=== PATIENT | female | born 1975 | race Caucasian/White ===

== ENCOUNTER 2017-01-22 12:23 | Inpatient (IN) | payer BC ==
[~2017-01-22] VITALS: Ht 160 cm; Wt 93.4 kg
[2017-01-22] MEDS ORDERED: Mylanta II UD 30ml ORAL ONE (13:30)
[2017-01-22] MEDS ORDERED: Famotidine 20 MG/ 2ML VIAL IVP ONE (13:30)
[2017-01-22] MEDS ORDERED: Dicyclomine HCl 10mg/5ml oral soln ORAL ONE (13:30)
[2017-01-22] MEDS ORDERED: Lidocaine 2% Visc 15ml soln ORAL ONE (13:30)
[2017-01-22 14:08] LABS: BASOPHILS % (AUTO) 0.5 % (0.0-2.0); EOSINOPHILS % (AUTO) 1.1 % (0.0-3.0); LYMPHOCYTES % (AUTO) 12.7 % (20.0-45.0); MEAN CORPUSCULAR HEMOGLOBIN 27.1 PG (27.0-31.0); MEAN CORPUSCULAR HGB CONC 32.4 G/DL (32.0-36.0); MEAN CORPUSCULAR VOLUME 84 FL (80-99); MEAN PLATELET VOLUME 6.1 FL (6.5-10.1); MONOCYTES % (AUTO) 4.5 % (1.0-10.0); NEUTROPHILS % (AUTO) 81.2 % (45.0-75.0); PLATELET COUNT 367 K/UL (150-450); RED BLOOD COUNT 4.54 M/UL (4.20-5.40); RED CELL DISTRIBUTION WIDTH 13.3 % (11.6-14.8); WHITE BLOOD COUNT 10.1 K/UL (4.8-10.8)
[2017-01-22] MEDS ORDERED: MOTRIN IB200 MG ORAL (14:22)
[2017-01-22 14:27] LABS: ALANINE AMINOTRANSFERASE 9 U/L (3-33); ALBUMIN/GLOBULIN RATIO 0.8 (1.0-2.7); ANION GAP 16 (5-15); ASPARTATE AMINO TRANSFERASE 11 U/L (5-40); CALCIUM 9.3 mg/dL (8.6-10.2); CARBON DIOXIDE 23 mEQ/L (20-30); CHLORIDE 97 mEQ/L (98-107); CREATININE 0.7 mg/dL (0.5-0.9); GLOMERULAR FILTRATION RATE > 60 mL/min (>60); HEMOLYSIS 15; POTASSIUM 4.1 mEQ/L (3.4-4.9); SODIUM 136 mEQ/L (135-145); TOTAL PROTEIN 8.1 g/dL (6.6-8.7)
[2017-01-22 14:54] LABS: PROTHROMBIN TIME 10.4 SEC (9.30-11.50)
[2017-01-22 15:33] VITALS: BP 147/89
--- NOTE | 2017-01-22 16:52 | Diagnostic Imaging Report ---
Indication: SOB Technique: One view of the chest Comparison: none Findings: Lungs and pleural spaces are clear. Heart size is normal. Impression: No acute process
[2017-01-22 17:00] VITALS: BP 138/82
[2017-01-22] MEDS ORDERED: Milk of Magnesia 30ml Ud ORAL PRN (17:15)
[2017-01-22] MEDS ORDERED: LORazepam Inj 2mg/ml 1ml IV PRN (17:15)
[2017-01-22] MEDS ORDERED: Mylanta II UD 30ml ORAL PRN (17:15)
[2017-01-22] MEDS ORDERED: Morphine Sulfate 4mg/ml Inj IVP PRN (17:15)
[2017-01-22] MEDS ORDERED: Miralax 17gm pkt ORAL PRN (17:15)
[2017-01-22] MEDS ORDERED: Morphine Sulfate 2mg/ml Inj IVP PRN (17:15)
--- NOTE | 2017-01-22 17:31 | History and Physical ---
History of Present Illness General Date patient seen: Jan 22, 2017 Time patient seen: 17:24 Reason for Hospitalization: General Complaint Present Illness HPI 42 y/o female with hx of hydradenitis, s/p axilla surgery in 2004, c/ b LLE DVT and bilateral PEs postop, treated with coumadin for 6 months, then was stopped, no recurrence of dvt/pe since that time. She has been in severe pain with her groin lesions, impeding some of her ADLs. Has tried multiple abx, without much success. No chest pain or dyspnea, she can exercise by walking greater than 4 blocks without any chest pain or dyspnea, no pnd/orthopnea. She has well controlled asthma, takes albuterol in haler only 1-2 x a year. She recently finished a steroid taper to calm down the inflammation in her groin region, last dose of prednisone yesterday. Allergies: Coded Allergies: No Known Allergies (Unverified , 01/22/17) Medication History Scheduled Ibuprofen* (Motrin Ib*), 600 MG ORAL THREE TIMES A DAY, (Reported) Patient History History Provided By: Patient Healthcare decision maker N/A Resuscitation status Advanced Directive on File Past Medical/Surgical History Past Medical/Surgical History: (1) Asthma Family History Family History: Patient reports no known family medical history. Social History Social History: (1) No significant social history Review of Systems ROS Narrative CONSTITUTIONAL: No weight loss, fever, chills, weakness or fatigue. HEENT: Eyes: No visual loss, blurred vision, double vision or yellow sclerae. Ears, Nose, Throat: No hearing loss, sneezing, congestion, runny nose or sore throat. SKIN: No rash or itching. CARDIOVASCULAR: No chest pain, chest pressure or chest discomfort. No palpitations or edema. RESPIRATORY: No shortness of breath, cough or sputum. GASTROINTESTINAL: No anorexia, nausea, vomiting or diarrhea. No abdominal pain or blood. NEUROLOGICAL: No headache, dizziness, syncope, paralysis, ataxia, numbness or tingling in the extremities. No change in bowel or bladder control. MUSCULOSKELETAL: No muscle, back pain, joint pain or stiffness. HEMATOLOGIC: No anemia, bleeding or bruising. LYMPHATICS: No enlarged nodes. No history of splenectomy. PSYCHIATRIC: No history of depression or anxiety. ENDOCRINOLOGIC: No reports of sweating, cold or heat intolerance. No polyuria or polydipsia. ALLERGIES: No history of asthma, hives, eczema or rhinitis. Physical Exam Physical Exam Narrative General: alert, cooperative, no distress, appears stated age Head: normocephalic, without obvious abnormality, atraumatic Eyes: conjunctivae/corneas clear. PERRL, EOM's intact Throat: lips, mucosa, and tongue normal. MMM Neck: supple, symmetrical, trachea midline, and no JVD Lungs: clear to auscultation bilaterally Heart: regular rate and rhythm, S1, S2 normal, no murmur, click, rub or gallop Abdomen: soft, non-tender, non-distended, bowel sounds normal; no masses or organomegaly Extremities: has multiple bilateral areas of sin lesions in the medial thigh areas, also has pustular and follicular lesions on BLE, no torso or UE involvement Pulses: 2+ and symmetric Skin: skin color, texture, turgor normal; no rashes or lesions Neurologic: grossly normal, no focal deficits Last 24 Hour Vital Signs Date Time Temp Pulse Resp B/P Pulse Ox O2 Delivery O2 Flow Rate FiO2 01/22/17 16:36 97.9 98 18 147/89 99 Room Air 01/22/17 15:33 97.9 98 18 147/89 99 Room Air 01/22/17 12:41 98.1 102 20 153/94 100 Room Air Laboratory Tests Test 01/22/17 13:45 01/22/17 14:35 White Blood Count 10.1 K/UL (4.8-10.8) Red Blood Count 4.54 M/UL (4.20-5.40) Hemoglobin 12.3 G/DL (12.0-16.0) Hematocrit 38.0 % (37.0-47.0) Mean Corpuscular Volume 84 FL (80-99) Mean Corpuscular Hemoglobin 27.1 PG (27.0-31.0) Mean Corpuscular Hemoglobin Concent 32.4 G/DL (32.0-36.0) Red Cell Distribution Width 13.3 % (11.6-14.8) Platelet Count 367 K/UL (150-450) Mean Platelet Volume 6.1 FL (6.5-10.1) L Neutrophils (%) (Auto) 81.2 % (45.0-75.0) H Lymphocytes (%) (Auto) 12.7 % (20.0-45.0) L Monocytes (%) (Auto) 4.5 % (1.0-10.0) Eosinophils (%) (Auto) 1.1 % (0.0-3.0) Basophils (%) (Auto) 0.5 % (0.0-2.0) Sodium Level 136 mEQ/L (135-145) Potassium Level 4.1 mEQ/L (3.4-4.9) Chloride Level 97 mEQ/L (98-107) L Carbon Dioxide Level 23 mEQ/L (20-30) Anion Gap 16 (5-15) H Blood Urea Nitrogen 11 mg/dL (7-23) Creatinine 0.7 mg/dL (0.5-0.9) Estimat Glomerular Filtration Rate > 60 mL/min (>60) Glucose Level 350 mg/dL (74-106) H Calcium Level 9.3 mg/dL (8.6-10.2) Total Bilirubin 0.6 mg/dL (0.0-1.2) Aspartate Amino Transf (AST/SGOT) 11 U/L (5-40) Alanine Aminotransferase (ALT/SGPT) 9 U/L (3-33) Alkaline Phosphatase 86 U/L (35-104) Total Protein 8.1 g/dL (6.6-8.7) Albumin 3.6 g/dL (3.5-5.2) Globulin 4.5 g/dL Albumin/Globulin Ratio 0.8 (1.0-2.7) L Prothrombin Time 10.4 SEC (9.30-11.50) Prothromb Time International Ratio 1.0 (0.9-1.1) Activated Partial Thromboplast Time 25 SEC (23-33) Height (Feet): 5 Height (Inches): 4.00 Weight (Pounds): 207 Medications Current Medications Medications (Trade) Dose Ordered Sig/Grayson Route PRN Reason Start Time Stop Time Status Last Admin Dose Admin Acetaminophen (Tylenol) 650 mg Q4H PRN ORAL Mild Pain (Pain Scale 1-3) 01/22/17 17:15 02/21/17 17:14 UNV Acetaminophen (Tylenol) 650 mg Q4H PRN ORAL fever 01/22/17 17:15 02/21/17 17:14 UNV Al Hydroxide/Mg Hydroxide (Mylanta II) 30 ml Q6H PRN ORAL dyspepsia 01/22/17 17:15 02/21/17 17:14 UNV Bisacodyl (Dulcolax) 10 mg HSPRN PRN RECTAL Constipation 01/22/17 17:15 02/21/17 17:14 UNV Cefazolin Sodium/ Dextrose (Ancef/D5W) 55 ml @ 110 mls/hr Q8HR IVPB 01/22/17 22:00 01/29/17 21:59 UNV Dextrose STAT PRN IV Hypoglycemia 01/22/17 17:15 02/21/17 17:14 UNV Dextrose/Sodium Chloride (D5ns) 1,000 ml @ 75 mls/hr [id number] IV 01/23/17 00:00 02/22/17 00:00 UNV Diphenhydramine HCl (Benadryl) 25 mg Q6H PRN ORAL Itching/Pruritis 01/22/17 17:15 02/21/17 17:14 UNV Docusate Sodium (Colace) 100 mg EVERY 12 HOURS ORAL 01/22/17 21:00 02/21/17 20:59 UNV Lorazepam (Ativan 2mg/ml 1ml) 0.5 mg Q4H PRN IV For Anxiety 01/22/17 17:15 01/29/17 17:14 UNV Magnesium Hydroxide (Mom) 30 ml HSPRN PRN ORAL Constipation 01/22/17 17:15 02/21/17 17:14 UNV Morphine Sulfate (Morphine Sulfate) 2 mg Q4HR PRN IVP Moderate Pain (Pain Scale 4-6) 01/22/17 17:15 01/29/17 17:14 UNV Morphine Sulfate (Morphine Sulfate) 4 mg Q4HR PRN IVP Severe Pain (Pain Scale 7-10) 01/22/17 17:15 01/29/17 17:14 UNV Ondansetron HCl (Zofran) 4 mg Q6H PRN IVP Nausea & Vomiting 01/22/17 17:15 02/21/17 17:14 UNV Polyethylene Glycol (Miralax) 17 gm HSPRN PRN ORAL Constipation 01/22/17 17:15 02/21/17 17:14 UNV Sodium Chloride 1,000 ml @ 999 mls/hr Q1H1M ONCE IV 01/22/17 17:00 01/22/17 18:00 Temazepam (Restoril) 15 mg HSPRN PRN ORAL Insomnia 01/22/17 17:15 01/29/17 17:14 UNV Assessment/Plan Problem List: (1) Groin abscess Assessment & Plan: Admit to inpatient Check blood cx Start IV abx Pain control Supp care SCDs Plastic Surgery consult A total of 31mins of time was spent on additional time with care coordination and counseling in addition to the face to face time for this visit ICD Codes: L02.214 - Cutaneous abscess of groin SNOMED: 38002687 (2) Asthma Assessment & Plan: well controlled Start alb nebs prn ICD Codes: J45.909 - Unspecified asthma, uncomplicated SNOMED: 461699418 (3) Hyperglycemia Assessment & Plan: Steroid induced, now finished taper Insulin sliding scale ICD Codes: R73.9 - Hyperglycemia, unspecified SNOMED: 26428395 CHER NARAYAN Jan 22, 2017 17:31
[2017-01-22] MEDS ORDERED: Albuterol ud Inhalation HHN PRN (17:45)
[2017-01-22 20:00] VITALS: BP 139/80
[2017-01-22] MEDS: Docusate 100mg tablet ORAL SCH (20:52)
[2017-01-22] MEDS: ceFAZolin sod 1 GM in NS 55 ML IVPB SCH (20:52)
[2017-01-22] MEDS: NovoLOG Insulin Flexpen SUBQ SCH (21:05)
--- NOTE | 2017-01-22 22:39 | Emergency Room Report ---
History of Present Illness General Chief Complaint: General Complaint Source: Patient Present Illness HPI 42 y/o female c/o admission for hidradenitis surgery. Has already seen Gen Sx who is performing procedure and has no active physical complaints. States she has been on humira and prednisone for the past several months but has not been diagnosed with diabetes. Currently has no physical complaints outside of hidradenitis of the groin. Allergies: Coded Allergies: No Known Allergies (Unverified , 01/22/17) Patient History Past Medical History: see triage record Immunizations: UTD Reviewed Nursing Documentation: PMH: Agreed, PSxH: Agreed Nursing Documentation-PMH Past Medical History: No History, Except For Hx Asthma: No - DVT Hx COPD: No - hidradenitis suppurativa Hx Cancer: No Hx Gastrointestinal Problems: No Hx Neurological Problems: No Review of Systems All Other Systems: negative except mentioned in HPI Physical Exam Vital Signs Date Time Temp Pulse Resp B/P Pulse Ox O2 Delivery O2 Flow Rate FiO2 01/22/17 12:41 98.1 102 20 153/94 100 Room Air Sp02 EP Interpretation: reviewed, normal Head: normocephalic, atraumatic Gastrointestinal: normal bowel sounds, non tender, soft, non-distended, no guarding, no rebound Musculoskeletal: back normal, gait/station normal, normal range of motion, non- tender, calf tenderness Skin: other - hidradenitis present along anterior and posterior aspect of groin and upper thighs Medical Decision Making PA Attestation Dr. Yun is my supervising physician with whom patient management has been discussed with. Diagnostic Impression: Primary Impression: Encounter for generalized patient complaints ER Course Pt. presents to the ED c/o admission for hidradenitis Ddx considered but are not limited to hidradenitis Vital signs: are WNL, pt. is afebrile H&PE are most consistent with hidradenitis ORDERS: Admission, IV, Labs, EKG Patient admitted EKG Diagnostic Results Rate: normal Rhythm: NSR ST Segments: no acute changes Rhythm Strip Diag. Results EP Interpretation: yes Last Vital Signs Date Time Temp Pulse Resp B/P Pulse Ox O2 Delivery O2 Flow Rate FiO2 01/22/17 17:00 98.4 98 18 138/82 97 Room Air Status: unchanged Disposition: ADMITTED INPATIENT Condition: Serious Referrals: DYLON HILARIO (PCP) OSCAR COSTELLO Jan 22, 2017 22:39
[2017-01-23] VITALS (11 sets, daily range): BP systolic 102–148; BP diastolic 57–88
[2017-01-23] MEDS ORDERED: D5NS 1,000 ML IV SCH
[2017-01-23] MEDS: ceFAZolin sod 1 GM in NS 55 ML IVPB SCH ×3 (04:08→19:33)
[2017-01-23] MEDS: NovoLOG Insulin Flexpen SUBQ SCH ×4 (06:14→21:51)
[2017-01-23 06:53] LABS: ANION GAP 13 (5-15); CALCIUM 8.5 mg/dL (8.6-10.2); CARBON DIOXIDE 24 mEQ/L (20-30); CHLORIDE 100 mEQ/L (98-107); CREATININE 0.7 mg/dL (0.5-0.9); GLOMERULAR FILTRATION RATE > 60 mL/min (>60); HEMOLYSIS 0; SODIUM 137 mEQ/L (135-145)
[2017-01-23] MEDS: Docusate 100mg tablet ORAL SCH ×2 (08:15→21:46)
--- NOTE | 2017-01-23 10:23 | Diagnostic Imaging Report ---
APPROVED REPORT CPT Code: 63210 Present Symptoms Lower Extremity Edema: Left Comments: History of DVT left leg and subsequent PE post-surgery 2004. Past History DVT :Left Pulmonary Embolism BILATERAL: Imaging reveals a patent deep venous system bilaterally. There is no evidence of thrombus within the femoral, popliteal or tibial segments. The greater saphenous veins are also within normal limits. Doppler indicates normal spontaneous flow within these segments.
[2017-01-23] MEDS ORDERED: Propofol 10mg/ml 20ml IV ONE ×2 (12:20→13:40)
[2017-01-23] MEDS ORDERED: EPINEPHrine 1mg/1ml Amp ONE (13:15)
[2017-01-23] MEDS ORDERED: Lidocaine 1% 10mg/ml/Epi 0.005mg/ml 30ml vial INJ ONE (13:16)
[2017-01-23] MEDS ORDERED: Bacitracin 50000 Units Vial ONE (13:16)
[2017-01-23] MEDS ORDERED: Succinylcholine 20mg/ml 10ml vial ONE (13:40)
[2017-01-23] MEDS ORDERED: Neostigmine 1mg/ml 10ml Inj ONE ×2 (13:40)
[2017-01-23] MEDS ORDERED: Ketorolac 30mg Inj ONE (13:40)
[2017-01-23] MEDS ORDERED: fentaNYL 100 mcg/2 mL IV ONE (13:40)
[2017-01-23] MEDS ORDERED: Zemuron 50mg/5ml Inj IV ONE (13:40)
[2017-01-23] MEDS ORDERED: NS Irrig 1000ml ONE (13:40)
[2017-01-23] MEDS ORDERED: Sterile Water Irrig 1000ml IRRIG ONE (13:40)
[2017-01-23] MEDS ORDERED: Midazolam 2mg/2ml Inj ONE (13:40)
[2017-01-23] MEDS ORDERED: LR 1000ml ONE (13:40)
[2017-01-23] MEDS ORDERED: Morphine Sulfate 10mg/ml Inj ONE (13:40)
[2017-01-23] MEDS ORDERED: Tubing IV Secondary IV ONE (13:43)
[2017-01-23] MEDS ORDERED: Metoclopramide 10mg/2ml Inj IVP PRN ×2 (14:45→16:15)
[2017-01-23] MEDS ORDERED: DiphenhydrAMINE 50mg/ml Inj IVP PRN (14:45)
[2017-01-23] MEDS ORDERED: Ketorolac 30mg Inj IV PRN (14:45)
[2017-01-23] MEDS ORDERED: Meperidine 25mg/ml Inj IV PRN (14:45)
[2017-01-23] MEDS ORDERED: LR 1000ml 1,000 ML IVLG SCH (14:45)
[2017-01-23] MEDS ORDERED: Hydromorphone 0.5mg/0.5ml inj IVP PRN (14:45)
[2017-01-23] MEDS ORDERED: fentaNYL 100 mcg/2 mL IV PRN (14:45)
[2017-01-23] MEDS ORDERED: Midazolam 2mg/2ml Inj IVP PRN (14:45)
--- NOTE | 2017-01-23 14:45 | Anethesia Preoperative Eval ---
Anesthesia Pre-op PMH/ROS General Date of Evaluation: Jan 23, 2017 Time of Evaluation: 13:40 Anesthesiologist: Ti ASA Score: ASA 3 Mallampati Score Class I : Soft palate, uvula, fauces, pillars visible Class II: Soft palate, uvula, fauces visible Class III: Soft palate, base of uvula visible Class IV: Only hard plate visible Mallampati Classification: Class II Surgeon: Sameer Diagnosis: Recurrent HS Surgical Procedure: Excision of bilateral groin hydradenitis Anesthesia History: none Family History: no anesthesia problems Allergies: Coded Allergies: No Known Allergies (Unverified , 01/22/17) Medications: see eMAR Past Medical History Cardiovascular: Denies: CAD, HTN, AR, arrhythmia, other, valve dz Pulmonary: Reports: asthma - mild, Denies: COPD, LORI, other Gastrointestinal/Genitourinary: Reports: GERD, Denies: CRI, ESRD, other Neurologic/Psychiatric: Reports: depression/anxiety, Denies: CVA, TIA, dementia, other Endocrine: Reports: DM - on pills developed after course of prednison, Denies: hypothyroidism, other, steroids HEENT: Denies: CABAZON (L), CABAZON (R), cataract (L), cataract (R), glaucoma, other Hematology/Immune: Reports: DVT - h/o DVT PE not on anticoagulants at present time, anemia Musculoskeletal/Integumentary: Reports: other - recurrent HS Other: obesity PMH Narrative: as above PSxH Narrative: bilateral axillary hydradenitis Anesthesia Pre-op Phys. Exam Physician Exam Last Vital Signs Date Time Temp Pulse Resp B/P Pulse Ox O2 Delivery O2 Flow Rate FiO2 01/23/17 08:14 98.1 90 16 135/85 96 Room Air Constitutional: NAD Neurologic: CN 2-12 intact Cardiovascular: RRR, no M/R/G Respiratory: CTA Gastrointestinal: other - obesity Airway Exam Mallampati Score: Class II MO: full Neck: flexible ROM: full Teeth: intact Dentures: no lower, no upper Anesthesia Pre-op A/P Labs Chemistry Test 01/23/17 06:15 Sodium Level 137 mEQ/L (135-145) Potassium Level 4.0 mEQ/L (3.4-4.9) Chloride Level 100 mEQ/L (98-107) Carbon Dioxide Level 24 mEQ/L (20-30) Anion Gap 13 (5-15) Blood Urea Nitrogen 8 mg/dL (7-23) Creatinine 0.7 mg/dL (0.5-0.9) Estimat Glomerular Filtration Rate > 60 mL/min (>60) Glucose Level 289 mg/dL (74-106) H Calcium Level 8.5 mg/dL (8.6-10.2) L Human Chorionic Gonadotropin, Qual Negative Serum Test Test 01/23/17 06:15 Human Chorionic Gonadotropin, Qual Negative Risk Assessment & Plan Assessment: ASA 2 Plan: GA with ETT Status Change Before Surgery: No Pre-Antibiotics Drug: Ancef 2gr. Given Within 1 Hr of Incision: Yes Time Given: 14:16 BRANDI COVARRUBIAS M.D. Jan 23, 2017 14:45
[2017-01-23] MEDS ORDERED: Rate Change PCA 1 Each MISC PRN ×2 (15:00→16:15)
[2017-01-23] MEDS ORDERED: Naloxone 0.4mg/ml Inj IVP PRN (15:00)
[2017-01-23] MEDS ORDERED: LORazepam 1mg tab ORAL PRN (15:00)
[2017-01-23] MEDS ORDERED: Surgicel 4in x 8in TOPIC ONE (15:47)
--- NOTE | 2017-01-23 16:09 | Pre-Procedure Note/Attestation ---
Pre-Procedure Note/Attestation Complete Prior to Procedure Planned Procedure: bilateral Procedure Narrative: Bilateral upper thigh mass excision and flap elevation Attestation I attest that I discussed the nature of the procedure; its benefits; risks and complications; and alternatives (and the risks and benefits of such alternatives ), prior to the procedure, with the patient (or the patient's legal outside dealer sales representative). I attest that, if there was a reasonable possibility of needing a blood transfusion, the patient (or the patient's legal outside dealer sales representative) was given the [facility] standardized written summary, pursuant to the [place] Blood Safety Act ([place] Health and Safety Code # 1645, as amended). I attest that I re-evaluated the patient just prior to the surgery and that there has been no change in the patient's H&P, except as documented below: DYLON HILARIO Jan 23, 2017 16:09
--- NOTE | 2017-01-23 16:11 | Operative Note - PDOC ---
Operative Note Operative Note Pre-op Diagnosis: Infected groin masses Procedure: Excision of bilateral groin masses with flap elevation Post-op Diagnosis: Same Surgeon: Sameer Mathematical Statistician: Patricia Anesthesia: general Specimen: yes Complications: none Condition: stable Estimated Blood Loss: volume - 100 Drains: none Implant(s) used?: No DYLON HILARIO Jan 23, 2017 16:11
[2017-01-23] MEDS ORDERED: PCA HYDROmorphone 1mg/ml 30 ML IV PRN (16:15)
[2017-01-23] MEDS ORDERED: Zolpidem 5mg tab ORAL PRN (16:15)
--- NOTE | 2017-01-23 16:31 | Immediate Post-Op Evaluation ---
Immediate Post-Op Evalulation Immediate Post-Op Evalulation Procedure: Excision of bilateral groin hydradenitis Date of Evaluation: Jan 23, 2017 Time of Evaluation: 16:29 IV Fluids: 1500 Blood Products: none Estimated Blood Loss: 200 Urinary Output: 250 Blood Pressure Systolic: 102 Blood Pressure Diastolic: 64 Pulse Rate: 72 Respiratory Rate: 20 O2 Sat by Pulse Oximetry: 99 Temperature (Fahrenheit): 97.8 Pain Score (1-10): 2 Nausea: No Vomiting: No Complications none Patient Status: reacts, patent, extubated, none Hydration Status: adequate BRANDI COVARRUBIAS M.D. Jan 23, 2017 16:30
[2017-01-23] MEDS: PCA HYDROmorphone 1mg/ml 30 ML IV PRN (16:58)
--- NOTE | 2017-01-23 18:34 | General Progress Note ---
Assessment/Plan Problem List: (1) Groin abscess Assessment & Plan: s/p I+D POD#1 f/u blood cx Cont IV abx Pain control Supp care SCDs Apprec Plastic Surgery input A total of 31mins of time was spent on additional time with care coordination and counseling in addition to the face to face time for this visit ICD Codes: L02.214 - Cutaneous abscess of groin SNOMED: 13154320 (2) Asthma Assessment & Plan: well controlled Cont alb nebs prn ICD Codes: J45.909 - Unspecified asthma, uncomplicated SNOMED: 474080615 (3) Hyperglycemia Assessment & Plan: Steroid induced, now finished taper Insulin sliding scale ICD Codes: R73.9 - Hyperglycemia, unspecified SNOMED: 92025272 Subjective Date patient seen: Jan 23, 2017 Time patient seen: 18:31 ROS Limited/Unobtainable: No Allergies: Coded Allergies: No Known Allergies (Unverified , 01/22/17) Subjective s/p I+D of groin region, POD#1, no periop or postop complications. No chest pain or dyspnea, postop pain well controlled. Objective Last 24 Hour Vital Signs Date Time Temp Pulse Resp B/P Pulse Ox O2 Delivery O2 Flow Rate FiO2 01/23/17 18:07 98.5 01/23/17 17:31 18 01/23/17 17:21 98.5 64 20 122/62 97 Nasal Cannula 3.0 01/23/17 17:16 18 01/23/17 17:10 64 20 129/68 97 Nasal Cannula 3.0 01/23/17 16:58 18 01/23/17 16:45 67 20 121/72 97 Simple Mask 8.0 01/23/17 16:32 63 20 134/69 97 Simple Mask 8.0 01/23/17 16:30 72 20 99 01/23/17 16:27 64 20 111/57 97 Simple Mask 8.0 01/23/17 16:22 98.1 87 20 102/61 97 Simple Mask 8.0 01/23/17 08:14 98.1 90 16 135/85 96 Room Air 01/23/17 04:23 98.2 92 20 146/88 100 Room Air 01/23/17 00:00 98.2 89 18 148/79 100 Room Air 4/4/17 20:00 97.7 97 18 139/80 100 Room Air Intake and Output 01/22/17 01/23/17 19:00 07:00 Intake Total 50 ml 1155 ml Balance 50 ml 1155 ml Intake Oral 550 ml IV Total 50 ml 605 ml # Voids 3 Laboratory Tests 01/23/17 06:15: Sodium Level 137, Potassium Level 4.0, Chloride Level 100, Carbon Dioxide Level 24, Anion Gap 13, Blood Urea Nitrogen 8, Creatinine 0.7, Estimat Glomerular Filtration Rate > 60, Glucose Level 289H, Calcium Level 8.5L, Human Chorionic Gonadotropin, Qual Negative Height (Feet): 5 Height (Inches): 3.00 Weight (Pounds): 206 Objective General: alert, cooperative, no distress, appears stated age Head: normocephalic, without obvious abnormality, atraumatic Eyes: conjunctivae/corneas clear. PERRL, EOM's intact Throat: lips, mucosa, and tongue normal. MMM Neck: supple, symmetrical, trachea midline, and no JVD Lungs: clear to auscultation bilaterally Heart: regular rate and rhythm, S1, S2 normal, no murmur, click, rub or gallop Abdomen: soft, non-tender, non-distended, bowel sounds normal; no masses or organomegaly Extremities: groin region dressing c/d/i Pulses: 2+ and symmetric Skin: skin color, texture, turgor normal; no rashes or lesions Neurologic: grossly normal, no focal deficits CHER NARAYAN Jan 23, 2017 18:33
[2017-01-23] MEDS: Heparin 5000 units/ml inj SUBQ SCH (19:32)
--- NOTE | 2017-01-23 22:28 | Consultation ---
DATE OF CONSULTATION: 01/23/2017 ADMITTING PHYSICIAN: Ivonne Montes De Oca M.D. HISTORY OF PRESENT ILLNESS: This is a 42-year-old female, who presents to the emergency room with bilateral infected groin masses/abscesses with significant amount of pain and drainage. She was admitted by the medical team for IV antibiotics. I am seeing the patient in evaluation for excisional debridement of this area with reconstruction. PAST MEDICAL HISTORY: Significant for hidradenitis in the upper extremities. PAST SURGICAL HISTORY: Significant for a previous axillary hidradenitis excision with reconstruction. MEDICATIONS: The patient was just on a prednisone taper, which she is off now and has been on antibiotics in the past. ALLERGIES: None. PHYSICAL EXAMINATION: GENERAL: The patient is alert and oriented x3. HEART: Regular rate and rhythm. ABDOMEN: Soft, nontender, and nondistended. There is evidence of abscesses in the lower abdomen. GENITALIA: Examination the perineum and lower extremities revealed on bilateral large infected groin masses with purulent drainage from both sides with extension into the perianal region. There is also a right buttock abscess with a phlegmonous mass associated with it. ASSESSMENT AND PLAN: This is a 42-year-old female with bilateral infected groin masses. She will be taken to the operating room for excision of this area with flap elevation given the infectious burden that is present, this will require a staged approach to her treatment, as we will not be able to perform definitive closure at the same time of the excision. She understands the plan and agrees to proceed. Kandice Estrella M.D. DR: AKHIL JOB#: [id number] CC:
[2017-01-23] MEDS ORDERED: CPAP (22:48)
--- NOTE | 2017-01-23 22:58 | Operative Note - Dictated ---
DATE OF OPERATION: 01/23/2017 PREOPERATIVE DIAGNOSIS: Bilateral infected groin masses. POSTOPERATIVE DIAGNOSIS: Bilateral infected groin masses. PROCEDURES: 1. Excision of infected left groin mass. 2. Excision of infected right groin mass. 3. Elevation of an anterior left-sided thigh flap for staged closure of left groin wound. 4. Elevation of a posterior thigh flap for closure of left groin wound. 5. Elevation of a right anterior thigh flap for staged closure of right thigh wound. 6. Elevation of a posterior right thigh flap for staged closure of right thigh wound. SURGEON: Kandice Estrella M.D. FINANCIAL MARKET DEALER: Chani Gomez M.D. ANESTHESIA: General. COMPLICATIONS: None. DRAINS: None. DISPOSITION: Stable to recovery room. SPECIMEN: Bilateral axillary masses. EBL: 100 mL. INDICATIONS FOR SURGERY: This is a 42-year-old female, who was admitted to the emergency room with bilateral infected groin masses. She had presented with significant pain and drainage. Upon evaluation by me, I felt that she needed a staged approach to address this area with an initial excisional debridement and radical excision of the mass, followed by a flap elevation at that time, with a staged closure within three to five days after this initial procedure. She understood the risks and benefits of surgery and agreed to proceed. DETAILS OF THE OPERATION: The patient was brought to the operating room and laid supine on the operating room table. After induction of anesthesia, she was placed in lithotomy position. The areas of infection within bilateral groin and upper thigh regions were demarcated with a marking pen. Once this was done, we proceeded, first on the right, to use a #10 blade to make the skin incision around the right infected groin mass all the way down to the level of the epimysium over the thigh muscles. Electrocautery was then used to radically excise the mass en bloc from the wound bed and from the surrounding skin. Once this was done, the wound was copiously irrigated with pulse lavage. In a similar fashion, the contralateral left infected mass was approached by using a #10 blade to cut all along the periphery of the mass over the marking that was made and electrocautery was then used to radically excise the mass from the wound bed. Following this radical excision, we noted that the wounds were of significant size and were not amenable to closure as such. The decision was made to perform a flap closure by removing an intervening V segment of tissue in the medial thigh on both sides to allow for flap elevation and closure of the wound. As such, a V was designed on both medial thighs. We first began on the right. This V pattern was excised to allow for first elevation of the anterior right thigh flap, which was elevated based off of perforators of the superficial femoral artery, and the proximal and distal incisions were made to fully mobilize the flap at the fasciocutaneous level. Following this, a posterior thigh flap was elevated based off of perforators of the deep femoral artery with proximal and distal incisions made to fully mobilize the flap. With these flaps fully mobilized, we tailor tacked and we noted that we could accomplish a near complete closure of the wound at this time, with the understanding that when she brought back to the operating room, further mobilization of both flaps will allow for a tension-free repair. We then turned our attention to the contralateral leg. On the left thigh, we performed a V excision of the medial thigh tissue to allow for advancement of an anterior and posterior thigh flap. In a similar fashion, an anterior thigh flap was elevated with perforators of the superficial femoral artery perfusing this flap. The proximal and distal incisions were made on the flap, and the flap was fully mobilized at the fasciocutaneous level. In a similar fashion, a posterior thigh flap was elevated based off of the perforators of the deep femoral artery and this was elevated at the fasciocutaneous level with proximal and distal incisions made to fully mobilize the flap in this thigh. It was noted to allow for tension-free closure of the wound. Again given the fact that this was an infected case, the flaps were not completely reapproximated the wound edges of the groin. The wound was then packed with Betadine-soaked gauze. The plan will be to bring the patient back to the operating room within five days to re-examine the wound and definitively inset the flaps to allow for closure of the wound. The patient tolerated the procedure well. There were no complications. Kandice Estrella M.D. DR: AMA JOB#: [id number] CC: ANNA
[2017-01-23] MEDS ORDERED: PCA shift volume MISC SCH (23:00)
[2017-01-23] MEDS: PCA shift volume MISC SCH (23:00)
--- NOTE | 2017-01-23 23:09 | Cardiology Report ---
APPROVED REPORT EKG Measurement Heart [id number] Normal sinus rhythm Possible Left atrial enlargement Borderline ECG
[2017-01-24] VITALS: BP 111/62
[2017-01-24 04:00] VITALS: BP 122/64
[2017-01-24] MEDS: ceFAZolin sod 1 GM in NS 55 ML IVPB SCH ×3 (04:38→21:37)
[2017-01-24] MEDS: NovoLOG Insulin Flexpen SUBQ SCH ×6 (05:37→21:46)
[2017-01-24] MEDS: PCA shift volume MISC SCH ×3 (07:09→23:00)
[2017-01-24 08:00] VITALS: BP 113/64
[2017-01-24] MEDS: Docusate 100mg tablet ORAL SCH ×2 (08:31→21:37)
[2017-01-24] MEDS: Heparin 5000 units/ml inj SUBQ SCH ×3 (08:35→17:46)
--- NOTE | 2017-01-24 08:53 | General Progress Note ---
Progress Note Progress Note Pt seen and examined. POD #1 and feels well. Dressings CDI To OR tomorrow for RF buttock debridement and flap elevation. NPO after MN. Dylon Hilario M.D. DYLON HILARIO Jan 24, 2017 08:53
--- NOTE | 2017-01-24 09:20 | General Progress Note ---
Assessment/Plan Problem List: (1) Groin abscess Assessment & Plan: s/p I+D POD#2 f/u blood cx Cont IV abx Pain control Supp care SCDs Apprec Plastic Surgery input A total of 31mins of time was spent on additional time with care coordination and counseling in addition to the face to face time for this visit ICD Codes: L02.214 - Cutaneous abscess of groin SNOMED: 87210572 (2) Asthma Assessment & Plan: well controlled Cont alb nebs prn ICD Codes: J45.909 - Unspecified asthma, uncomplicated SNOMED: 548593461 (3) Hyperglycemia Assessment & Plan: Steroid induced, now finished taper Insulin sliding scale ICD Codes: R73.9 - Hyperglycemia, unspecified SNOMED: 80478358 Subjective Date patient seen: Jan 24, 2017 Time patient seen: 09:19 ROS Limited/Unobtainable: No Allergies: Coded Allergies: No Known Allergies (Unverified , 01/22/17) Subjective s/p I+D of groin region, POD#2, no periop or postop complications. No chest pain or dyspnea, postop pain well controlled. Objective Last 24 Hour Vital Signs Date Time Temp Pulse Resp B/P Pulse Ox O2 Delivery O2 Flow Rate FiO2 01/24/17 08:00 19 01/24/17 08:00 98.6 104 20 113/64 95 Room Air 01/24/17 04:00 99.1 20 122/64 100 Room Air 01/24/17 04:00 18 01/24/17 00:00 99.1 99 20 111/62 99 Room Air 01/24/17 00:00 18 01/23/17 20:00 97.5 99 20 111/70 99 Nasal Cannula 3.0 01/23/17 20:00 18 01/23/17 19:52 97 Nasal Cannula 3.0 01/23/17 19:52 Nasal Cannula 3.0 01/23/17 19:51 56 16 Nasal Cannula 3.0 01/23/17 18:07 98.5 01/23/17 17:46 97.7 54 18 118/67 97 Nasal Cannula 3.0 01/23/17 17:31 18 01/23/17 17:21 98.5 64 20 122/62 97 Nasal Cannula 3.0 01/23/17 17:16 18 01/23/17 17:10 64 20 129/68 97 Nasal Cannula 3.0 01/23/17 16:58 18 01/23/17 16:45 67 20 121/72 97 Simple Mask 8.0 01/23/17 16:32 63 20 134/69 97 Simple Mask 8.0 01/23/17 16:30 72 20 99 01/23/17 16:27 64 20 111/57 97 Simple Mask 8.0 01/23/17 16:22 98.1 87 20 102/61 97 Simple Mask 8.0 Intake and Output 01/23/17 01/24/17 18:59 06:59 Intake Total 1750 ml Output Total 450 ml 450 ml Balance 1300 ml -450 ml IV Total 1750 ml Output Urine Total 250 ml 450 ml Estimated Blood Loss 200 ml Height (Feet): 5 Height (Inches): 3.00 Weight (Pounds): 206 Objective General: alert, cooperative, no distress, appears stated age Head: normocephalic, without obvious abnormality, atraumatic Eyes: conjunctivae/corneas clear. PERRL, EOM's intact Throat: lips, mucosa, and tongue normal. MMM Neck: supple, symmetrical, trachea midline, and no JVD Lungs: clear to auscultation bilaterally Heart: regular rate and rhythm, S1, S2 normal, no murmur, click, rub or gallop Abdomen: soft, non-tender, non-distended, bowel sounds normal; no masses or organomegaly Extremities: groin region dressing c/d/i Pulses: 2+ and symmetric Skin: skin color, texture, turgor normal; no rashes or lesions Neurologic: grossly normal, no focal deficits CHER NARAAYN Jan 24, 2017 09:20
--- NOTE | 2017-01-24 09:54 | 48 Hour Post Anesthesia Eval ---
Post Anesthesia Evaluation Procedure: Excision of bilateral groin hydradenitis Date of Evaluation: Jan 24, 2017 Time of Evaluation: 09:53 Blood Pressure Systolic: 116 0: 60 Pulse Rate: 94 Respiratory Rate: 20 Temperature (Fahrenheit): 97.8 O2 Sat by Pulse Oximetry: 98 Airway: patent Nausea: No Vomiting: No Pain Intensity: 3 Hydration Status: adequate Cardiopulmonary Status: stable Mental Status/LOC: patient returned to baseline Follow-up Care/Observations: na Post-Anesthesia Complications: na Follow-up care needed: N/A LB MCNAMARA M.D. Jan 24, 2017 09:54
[2017-01-24 12:00] VITALS: BP 110/63
[2017-01-24 16:00] VITALS: BP 104/54
[2017-01-24 20:00] VITALS: BP 109/58
[2017-01-24] MEDS: PCA HYDROmorphone 1mg/ml 30 ML IV PRN (21:49)
[2017-01-25] VITALS (15 sets, daily range): BP systolic 103–125; BP diastolic 46–70
[2017-01-25] MEDS: ceFAZolin sod 1 GM in NS 55 ML IVPB SCH ×3 (03:55→22:29)
[2017-01-25] MEDS: NovoLOG Insulin Flexpen SUBQ SCH ×7 (06:13→22:31)
[2017-01-25] MEDS: PCA shift volume MISC SCH ×3 (07:10→23:00)
[2017-01-25] MEDS ORDERED: EPINEPHrine 1mg/1ml Amp ONE (08:55)
[2017-01-25] MEDS ORDERED: Surgicel 4in x 8in TOPIC ONE (08:55)
[2017-01-25] MEDS ORDERED: Lidocaine 1% 10mg/ml/Epi 0.005mg/ml 30ml vial INJ ONE (08:55)
[2017-01-25] MEDS ORDERED: Bacitracin 50000 Units Vial ONE (08:55)
[2017-01-25] MEDS: Heparin 5000 units/ml inj SUBQ SCH ×2 (09:00→22:31)
[2017-01-25] MEDS: Docusate 100mg tablet ORAL SCH ×2 (09:00→22:29)
[2017-01-25] MEDS ORDERED: Propofol 10mg/ml 20ml IV ONE (09:12)
--- NOTE | 2017-01-25 09:46 | Pre-Procedure Note/Attestation ---
Pre-Procedure Note/Attestation Complete Prior to Procedure Planned Procedure: right Procedure Narrative: Right posterior thigh debridement and flap elevation Indications for Procedure Pre-Operative Diagnosis: Infected groin masses Attestation I attest that I discussed the nature of the procedure; its benefits; risks and complications; and alternatives (and the risks and benefits of such alternatives ), prior to the procedure, with the patient (or the patient's legal credit resolution representative). I attest that, if there was a reasonable possibility of needing a blood transfusion, the patient (or the patient's legal credit resolution representative) was given the [facility] standardized written summary, pursuant to the [employer] Blood Safety Act ([place] Health and Safety Code # 1645, as amended). I attest that I re-evaluated the patient just prior to the surgery and that there has been no change in the patient's H&P, except as documented below: DYLON HILARIO Jan 25, 2017 09:45
--- NOTE | 2017-01-25 09:48 | Operative Note - PDOC ---
Operative Note Operative Note Pre-op Diagnosis: Right posterior thigh infected mass Procedure: Excision of posterior thigh mass with flap elevation Post-op Diagnosis: Same Surgeon: Sameer Pst Supervisor: Patricia Anesthesia: general Specimen: yes Complications: none Condition: stable Estimated Blood Loss: volume - 100 Drains: none Implant(s) used?: No DYLON HILARIO Jan 25, 2017 09:48
[2017-01-25] MEDS ORDERED: PCA HYDROmorphone 1mg/ml 30 ML IV PRN (10:00)
[2017-01-25] MEDS ORDERED: Succinylcholine 20mg/ml 10ml vial ONE ×2 (10:00)
[2017-01-25] MEDS ORDERED: Metoclopramide 10mg/2ml Inj IVP PRN ×2 (10:00→11:45)
[2017-01-25] MEDS ORDERED: fentaNYL 100 mcg/2 mL IV ONE (10:00)
[2017-01-25] MEDS ORDERED: LR 1000ml ONE (10:00)
[2017-01-25] MEDS ORDERED: Midazolam 2mg/2ml Inj ONE (10:00)
[2017-01-25] MEDS ORDERED: Ketorolac 30mg Inj ONE (10:00)
[2017-01-25] MEDS ORDERED: Glycopyrrolate 0.2mg/ml 1ml Vial ONE (10:00)
[2017-01-25] MEDS ORDERED: Zemuron 50mg/5ml Inj IV ONE (10:00)
[2017-01-25] MEDS ORDERED: Rate Change PCA 1 Each MISC PRN (10:00)
[2017-01-25] MEDS ORDERED: Neostigmine 1mg/ml 10ml Inj ONE (10:00)
[2017-01-25] MEDS ORDERED: Zolpidem 5mg tab ORAL PRN (10:00)
--- NOTE | 2017-01-25 10:15 | General Progress Note ---
Assessment/Plan Problem List: (1) Groin abscess Assessment & Plan: s/p I+D POD#3 f/u blood cx Cont IV abx Pain control Supp care SCDs Apprec Plastic Surgery input A total of 31mins of time was spent on additional time with care coordination and counseling in addition to the face to face time for this visit ICD Codes: L02.214 - Cutaneous abscess of groin SNOMED: 30014827 (2) Asthma Assessment & Plan: well controlled Cont alb nebs prn ICD Codes: J45.909 - Unspecified asthma, uncomplicated SNOMED: 882247106 (3) Hyperglycemia Assessment & Plan: Steroid induced, now finished taper Insulin sliding scale Start levemir qhs, cont novolog with meals ICD Codes: R73.9 - Hyperglycemia, unspecified SNOMED: 82624158 Subjective Date patient seen: Jan 25, 2017 Time patient seen: 10:13 ROS Limited/Unobtainable: No Allergies: Coded Allergies: No Known Allergies (Unverified , 01/22/17) Subjective s/p I+D of groin region, POD#3, no periop or postop complications. Currently in OR for stage 2 surgery. Objective Last 24 Hour Vital Signs Date Time Temp Pulse Resp B/P Pulse Ox O2 Delivery O2 Flow Rate FiO2 01/25/17 08:18 98 20 Room Air 01/25/17 08:18 95 Room Air 01/25/17 08:18 Room Air 01/25/17 08:00 19 01/25/17 08:00 98.2 100 19 111/61 100 Room Air 01/25/17 04:00 16 01/25/17 04:00 99.0 96 18 118/70 98 Room Air 01/25/17 01:45 99.5 01/25/17 00:00 100.9 111 18 125/61 96 Room Air 01/25/17 00:00 18 01/24/17 22:19 100.0 01/24/17 21:50 18 01/24/17 21:49 18 01/24/17 20:00 18 01/24/17 20:00 100.0 107 18 109/58 96 Room Air 01/24/17 19:09 95 Room Air 01/24/17 19:09 Room Air 01/24/17 19:08 98 18 Room Air 4/6/17 16:00 18 01/24/17 16:00 99.1 103 18 104/54 96 Room Air 01/24/17 12:00 18 01/24/17 12:00 99.5 96 20 110/63 96 Room Air Intake and Output 01/24/17 01/25/17 19:00 07:00 Intake Total 500 ml 240 ml Output Total 1300 ml 1600 ml Balance -800 ml -1360 ml Intake Oral 500 ml 240 ml Output Urine Total 1300 ml 1600 ml Height (Feet): 5 Height (Inches): 3.00 Weight (Pounds): 206 Objective unable to examine as pt in OR CHER NARAYAN Jan 25, 2017 10:14
--- NOTE | 2017-01-25 10:58 | Anethesia Preoperative Eval ---
Anesthesia Pre-op PMH/ROS General Date of Evaluation: Jan 25, 2017 Time of Evaluation: 09:40 Anesthesiologist: Ti ASA Score: ASA 2 Mallampati Score Class I : Soft palate, uvula, fauces, pillars visible Class II: Soft palate, uvula, fauces visible Class III: Soft palate, base of uvula visible Class IV: Only hard plate visible Mallampati Classification: Class II Surgeon: Sameer Diagnosis: Recurrent hydradenitis Surgical Procedure: Excision of R gluteal area lesion Anesthesia History: none Family History: no anesthesia problems Allergies: Coded Allergies: No Known Allergies (Unverified , 01/22/17) Medications: see eMAR Past Medical History Cardiovascular: Denies: CAD, HTN, VT, arrhythmia, other, valve dz Pulmonary: Reports: asthma - mild, Denies: COPD, LORI, other Gastrointestinal/Genitourinary: Reports: GERD, Denies: CRI, ESRD, other Neurologic/Psychiatric: Reports: depression/anxiety, Denies: CVA, TIA, dementia, other Endocrine: Reports: DM, Denies: hypothyroidism, other, steroids HEENT: Denies: TYONEK (L), TYONEK (R), cataract (L), cataract (R), glaucoma, other Hematology/Immune: Reports: DVT - h/o, anemia - mild Musculoskeletal/Integumentary: Denies: DDD, DJD, OA, RA, edema, other Other: obesity PMH Narrative: as above PSxH Narrative: see chart Anesthesia Pre-op Phys. Exam Physician Exam Last Vital Signs Date Time Temp Pulse Resp B/P Pulse Ox O2 Delivery O2 Flow Rate FiO2 01/25/17 08:18 98 20 Room Air 01/25/17 08:18 95 01/25/17 08:00 98.2 111/61 01/24/17 06:59 Constitutional: NAD Neurologic: CN 2-12 intact Cardiovascular: RRR, no M/R/G Respiratory: CTA Gastrointestinal: other - obesity Airway Exam Mallampati Score: Class II MO: full ROM: full Teeth: intact Dentures: no lower, no upper Anesthesia Pre-op A/P Risk Assessment & Plan Assessment: ASA 2 Plan: GA with ETT prone position Status Change Before Surgery: No Pre-Antibiotics Drug: Ancef 1 gr. Given Within 1 Hr of Incision: Yes Time Given: 10:05 BRANDI COVARRUBIAS M.D. Jan 25, 2017 10:58
[2017-01-25] MEDS ORDERED: LR 1000ml 1,000 ML IVLG SCH (11:31)
--- NOTE | 2017-01-25 11:34 | Immediate Post-Op Evaluation ---
Immediate Post-Op Evalulation Immediate Post-Op Evalulation Procedure: Excision of bilateral groin hydradenitis Date of Evaluation: Jan 25, 2017 Time of Evaluation: 11:33 IV Fluids: 800 Blood Products: none Estimated Blood Loss: <50 Urinary Output: 200 Blood Pressure Systolic: 110 Blood Pressure Diastolic: 67 Pulse Rate: 104 Respiratory Rate: 20 O2 Sat by Pulse Oximetry: 99 Temperature (Fahrenheit): 97.6 Pain Score (1-10): 2 Nausea: No Vomiting: No Complications none Patient Status: reacts, patent, extubated, none Hydration Status: adequate BRANDI COVARRUBIAS M.D. Jan 25, 2017 11:34
[2017-01-25] MEDS ORDERED: Hydromorphone 0.5mg/0.5ml inj IVP PRN (11:45)
[2017-01-25] MEDS ORDERED: Ketorolac 30mg Inj IV PRN (11:45)
[2017-01-25] MEDS ORDERED: Midazolam 2mg/2ml Inj IVP PRN (11:45)
[2017-01-25] MEDS ORDERED: DiphenhydrAMINE 50mg/ml Inj IVP PRN (11:45)
[2017-01-25] MEDS ORDERED: Meperidine 25mg/ml Inj IV PRN (11:45)
--- NOTE | 2017-01-25 13:51 | 48 Hour Post Anesthesia Eval ---
Post Anesthesia Evaluation Procedure: Excision of bilateral groin hydradenitis Date of Evaluation: Jan 25, 2017 Time of Evaluation: 13:49 Blood Pressure Systolic: 103 0: 46 Pulse Rate: 100 Respiratory Rate: 18 Temperature (Fahrenheit): 98.6 O2 Sat by Pulse Oximetry: 99 Airway: patent Nausea: No Vomiting: No Pain Intensity: 2 Hydration Status: adequate Cardiopulmonary Status: Stable Mental Status/LOC: patient returned to baseline Follow-up Care/Observations: 0 Post-Anesthesia Complications: 0 Follow-up care needed: N/A Celio Neil MD Jan 25, 2017 13:51
--- NOTE | 2017-01-25 20:38 | Operative Note - Dictated ---
DATE OF OPERATION: 01/25/2017 PREOPERATIVE DIAGNOSIS: Infected upper posterior thigh mass. POSTOPERATIVE DIAGNOSIS: Infected upper posterior thigh mass. PROCEDURES: 1. Radical excision of upper posterior thigh mass right side. 2. Elevation of a rotational right-sided gluteal flap for staged closure of right upper posterior thigh wound. 3. Elevation of a posterior thigh flap for staged closure of right upper posterior thigh wound. SURGEON: Kandice Estrella M.D. COMPUTER NETWORK AND SYSTEMS ENGINEER: Chani Gomez M.D. ANESTHESIA: General. COMPLICATIONS: None. DRAINS: None. SPECIMEN: Infected upper posterior right thigh mass. ESTIMATED BLOOD LOSS: 25 mL. DISPOSITION: Stable to the recovery room. INDICATIONS FOR SURGERY: This is a 42-year-old female now, who is been hospitalized now for about five days, who has previously undergone bilateral excision of her infected groin masses, who now presents to the operating room for radical excision of a right upper posterior thigh mass. This area has been draining purulent material and it is quite tender and requires radical excision. Given the presence of the infection, the flap elevation will be done only as the first stage and definitive closure will not be done at this time, this will require a staged closure within three to five days. The patient understands the plan and agrees to proceed. DETAILS OF THE OPERATION: The patient was brought to the operating room and laid in the prone position on the operating table after induction of anesthesia. The lower back and upper thigh on the right were prepped and draped in a sterile and usual fashion. We first began by using a marking pen to the delineate the extent of the mass and once this was done, a corresponding superiorly and medially based rotational gluteal flap was designed with a marking pen and a corresponding areas of undermining for lower posterior thigh flap were also determined. Once this was done, a #10 blade was then used to radically excise the mass by first making the skin incision around the mass around the markings and dissection was carried down all the way to the level of the epimysium of the gluteus muscle fascia and the mass was then removed on block. Once this was done, a posterior thigh flap was elevated with proximal and distal incisions made to fully mobilize the flap and the perforators of the deep femoral artery were perfusing the flap. Once this was done, the incision was made for the superior medial rotational gluteal flap placed off of lumbar perforators as well as the superior gluteal artery. Undermining was done all the way just to the level of the epimysium of the gluteus muscle and dissection was carried down approximately 2.5 centimeters away from the midline to fully mobilize the flap. The flap was then tailor tacked into the defect and was noted to be tension-free reapproximation of the both flaps over the defect. The wound was then copiously irrigated and pulse lavaged with pulse lavage. Hemostasis was achieved and the plan will be to bring the patient back to the operating room in three days to perform definitive flap inset. Dressings were applied and the patient tolerated the procedure well. There was no complications. Kandice Estrella M.D. DR: AKHIL JOB#: [id number] CC:
[2017-01-25] MEDS ORDERED: Levemir Flexpen SUBQ SCH (21:00)
[2017-01-26] VITALS (7 sets, daily range): BP systolic 113–119; BP diastolic 48–80
[2017-01-26 04:00] LABS: ANION GAP 16 (5-15); CALCIUM 8.2 mg/dL (8.6-10.2); CARBON DIOXIDE 23 mEQ/L (20-30); CHLORIDE 97 mEQ/L (98-107); CREATININE 0.8 mg/dL (0.5-0.9); GLOMERULAR FILTRATION RATE > 60 mL/min (>60); HEMOLYSIS 0; MEAN CORPUSCULAR HEMOGLOBIN 27.9 PG (27.0-31.0); MEAN CORPUSCULAR HGB CONC 33.5 G/DL (32.0-36.0); MEAN CORPUSCULAR VOLUME 83 FL (80-99); MEAN PLATELET VOLUME 5.7 FL (6.5-10.1); PLATELET COUNT 308 K/UL (150-450); POTASSIUM 3.5 mEQ/L (3.4-4.9); RED BLOOD COUNT 2.43 M/UL (4.20-5.40); RED CELL DISTRIBUTION WIDTH 13.8 % (11.6-14.8); SODIUM 136 mEQ/L (135-145); WHITE BLOOD COUNT 10.6 K/UL (4.8-10.8)
[2017-01-26] MEDS: ceFAZolin sod 1 GM in NS 55 ML IVPB SCH ×2 (04:46→12:19)
[2017-01-26 05:33] LABS: MEAN CORPUSCULAR HEMOGLOBIN 27.9 PG (27.0-31.0); MEAN CORPUSCULAR VOLUME 84 FL (80-99); MEAN PLATELET VOLUME 5.8 FL (6.5-10.1); PLATELET COUNT 259 K/UL (150-450); RED BLOOD COUNT 2.43 M/UL (4.20-5.40); WHITE BLOOD COUNT 11.7 K/UL (4.8-10.8)
[2017-01-26 05:42] LABS: APPEARANCE,URINE CLEAR; KETONES,URINE 3+ (NEGATIVE); LEUKOCYTE ESTERASE ,URINE NEGATIVE (NEGATIVE); NITRITE,URINE NEGATIVE (NEGATIVE); PH,URINE 6 (4.5-8.0); PROTEIN,URINE NEGATIVE (NEGATIVE); UROBILINOGEN,URINE NORMAL MG/DL (0.0-1.0)
[2017-01-26 06:07] LABS: BAND NEUTROPHILS % (MANUAL) 0 % (0-8); BASOPHILS % (MANUAL) 0 % (0-2); EOSINOPHILS % (MANUAL) 2 % (0-3); LYMPHOCYTES % (MANUAL) 9 % (20-45); NEUTROPHILS % (MANUAL) 85 % (45-75); PLATELET ESTIMATE ADEQUATE; PLATELET MORPHOLOGY NORMAL; TOTAL CELLS COUNTED 100
[2017-01-26] MEDS: Heparin 5000 units/ml inj SUBQ SCH ×3 (06:55→21:38)
[2017-01-26] MEDS: NovoLOG Insulin Flexpen SUBQ SCH ×7 (06:59→21:39)
[2017-01-26] MEDS: PCA shift volume MISC SCH ×3 (07:18→23:00)
[2017-01-26] MEDS: Docusate 100mg tablet ORAL SCH ×2 (08:25→21:33)
--- NOTE | 2017-01-26 09:26 | General Progress Note ---
Progress Note Progress Note Pt seen and examined. Doing well. AVSS Dressings intact. Will transfuse 2 U PRBCS for low Hct. To OR on saturday for closure of wounds. DYLON Ocampo MD Jan 26, 2017 09:26
--- NOTE | 2017-01-26 13:11 | General Progress Note ---
TITA FLORES N.P. 01/26/17 1311: Assessment/Plan Status: stable Assessment/Plan (1) Groin abscess Assessment & Plan: s/p stage 2 surgery POD 1 of excision of Bilateral Groin Hydradenitis Elevation of temperature concerning for SSI; blood and urine culture sent overnight, will continue to follow. Change IV ABX: DC Cefazolin. Vancomycin IVPB, Cefepime IVPB, pharmacy to dose for Soft Skin Infection Pain control; currently on BIOINFORMATICIST Supp care SCDs Apprec Plastic Surgery input; planning for OR closure of bilateral groin wounds on Saturday. (2) Asthma Assessment & Plan: well controlled Cont alb nebs prn ICD Codes: J45.909 - Unspecified asthma, uncomplicated SNOMED: 093661944 (3) Hyperglycemia Assessment & Plan: Steroid induced, now finished taper Insulin sliding scale Continue levemir nightly and sliding scale Subjective Date patient seen: Jan 26, 2017 Time patient seen: 13:01 Constitutional: Reports: chills, fever, other - tmax 102.2F overnight, 102F this morning. Tylenol administered prior to transfusion. Temp to 98.6 prior to transfusion. Hgb this am 6.8. 2 units ordered. HEENT: Denies: blurred vision, double vision, eye pain, mouth pain, mouth swelling, tearing Cardiovascular: Denies: edema, irregular heart rate, lightheadedness Respiratory: Denies: SOB with excertion, cough, orthopnea, shortness of breath Gastrointestinal/Abdominal: Denies: abdomen distended, abdominal pain, black stools, blood in stool, tarry stools Genitourinary: Denies: burning, discharge, frequency Neurologic/Psychiatric: Denies: anxiety, depressed, emotional problems, headache, numbness Endocrine: Denies: excessive sweating, flushing, intolerance to cold, unexplained weight loss Allergies: Coded Allergies: No Known Allergies (Unverified , 01/22/17) Objective Last 24 Hour Vital Signs Date Time Temp Pulse Resp B/P Pulse Ox O2 Delivery O2 Flow Rate FiO2 01/26/17 12:24 98.6 01/26/17 12:01 98.6 01/26/17 11:33 102.0 109 18 114/65 97 Room Air 01/26/17 11:33 18 01/26/17 08:04 98.1 108 20 117/61 92 Room Air 108 01/26/17 08:00 19 01/26/17 04:00 99.7 119 19 119/64 93 Room Air 01/26/17 04:00 18 01/26/17 00:30 15 01/26/17 00:30 15 01/26/17 00:00 101.1 128 19 115/48 92 Room Air 01/25/17 20:00 101.7 107 19 117/58 100 Room Air 01/25/17 20:00 15 01/25/17 19:30 Nasal Cannula 2.0 28 01/25/17 19:30 94 16 Nasal Cannula 2.0 28 01/25/17 19:30 95 Nasal Cannula 2.0 28 01/25/17 16:00 97.3 97 17 107/52 100 Nasal Cannula 3.0 01/25/17 16:00 15 01/25/17 13:51 100 18 99 01/25/17 13:10 15 01/25/17 13:05 98.6 100 18 103/46 99 Nasal Cannula 3.0 Intake and Output 01/25/17 01/26/17 19:00 07:00 Intake Total 1050 ml 480 ml Output Total 310 ml 1400 ml Balance 740 ml -920 ml Intake Oral 240 ml IV Total 1050 ml 240 ml Output Urine Total 275 ml 1400 ml Estimated Blood Loss 35 ml Laboratory Tests 01/26/17 03:15: White Blood Count 10.6, Red Blood Count 2.43L, Hemoglobin 6.8*L, Hematocrit 20.3L, Mean Corpuscular Volume 83, Mean Corpuscular Hemoglobin 27.9, Mean Corpuscular Hemoglobin Concent 33.5, Red Cell Distribution Width 13.8, Platelet Count 308, Mean Platelet Volume 5.7L, Neutrophils (%) (Auto) , Lymphocytes (%) ( Auto) , Monocytes (%) (Auto) , Eosinophils (%) (Auto) , Basophils (%) (Auto) , Sodium Level 136, Potassium Level 3.5, Chloride Level 97L, Carbon Dioxide Level 23, Anion Gap 16H, Blood Urea Nitrogen 8, Creatinine 0.8, Estimat Glomerular Filtration Rate > 60, Glucose Level 195H, Calcium Level 8.2L 01/26/17 05:00: White Blood Count 11.7H, Red Blood Count 2.43L, Hemoglobin 6.8*L, Hematocrit 20.5L, Mean Corpuscular Volume 84, Mean Corpuscular Hemoglobin 27.9, Mean Corpuscular Hemoglobin Concent 33.0, Red Cell Distribution Width 14.0, Platelet Count 259, Mean Platelet Volume 5.8L, Neutrophils (%) (Auto) , Lymphocytes (%) ( Auto) , Monocytes (%) (Auto) , Eosinophils (%) (Auto) , Basophils (%) (Auto) , Differential Total Cells Counted 100, Neutrophils % (Manual) 85H, Lymphocytes % (Manual) 9L, Monocytes % (Manual) 4, Eosinophils % (Manual) 2, Basophils % ( Manual) 0, Band Neutrophils 0, Platelet Estimate Adequate, Platelet Morphology Normal, Red Blood Cell Morphology Normal 01/26/17 05:07: Urine Color Pale yellow, Urine Appearance Clear, Urine pH 6, Urine Specific [place] 1.010, Urine Protein Negative, Urine Glucose (UA) Negative, Urine Ketones 3+H, Urine Occult Blood Negative, Urine Nitrite Negative, Urine Bilirubin Negative, Urine Urobilinogen Normal, Urine Leukocyte Esterase Negative Height (Feet): 5 Height (Inches): 3.00 Weight (Pounds): 206 General Appearance: no apparent distress, alert, lethargic EENT: PERRL/EOMI, normal ENT inspection, TMs normal Neck: non-tender, normal alignment, supple Cardiovascular: normal peripheral pulses, normal rate, regular rhythm, regularly irregular Respiratory/Chest: chest wall non-tender, lungs clear, normal breath sounds Abdomen: normal bowel sounds, non tender, soft, no organomegaly Pelvis: other - bilateral groin dressings in place. Dressing c/d/i. 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 grossly normal, no motor/sensory deficits, alert, oriented x 3 Skin: normal pigmentation, warm/dry Lymphatic: normal anterior cervical (L), normal anterior cervical (R), normal axillary (L), normal axillary (R), normal inguinal (L), normal inguinal (R), normal other, normal posterior cervical (L), normal posterior cervical (R), normal submandibular (L), normal submandibular (R), normal supraclavicular (L), normal supraclavicular (R) CHER NARAYAN 01/31/17 1620: Assessment/Plan Assessment/Plan I saw and examined the patient, reviewed the case in detail, reviewed radiology and EKG if applicable, in addition reviewing the laboratory data and microbiology. I agree with the history, physical examination findings, assessment and plan of care as outlined above by the Nurse Practitioner with any additions or modifications noted. Subjective Allergies: Coded Allergies: No Known Allergies (Unverified , 01/22/17) TITA FLORES N.P. Jan 26, 2017 13:11 CHER NARAYAN Jan 31, 2017 16:20
[2017-01-26] MEDS: Cefepime HCl 1 GM in NS 55 ML IVPB SCH (16:26)
[2017-01-26] MEDS: Vancomycin 1gm/D5W 275ml IVPB SCH ×2 (16:27)
[2017-01-26] MEDS: Levemir Flexpen SUBQ SCH (21:39)
[2017-01-27 00:07] VITALS: BP 116/64
[2017-01-27 04:00] VITALS: BP 118/63
[2017-01-27] MEDS: Vancomycin 1gm/D5W 275ml IVPB SCH ×4 (04:06→16:11)
[2017-01-27] MEDS: Cefepime HCl 1 GM in NS 55 ML IVPB SCH ×2 (06:10→17:30)
[2017-01-27] MEDS: Heparin 5000 units/ml inj SUBQ SCH ×3 (06:13→21:48)
[2017-01-27] MEDS: NovoLOG Insulin Flexpen SUBQ SCH ×7 (06:23→21:52)
[2017-01-27] MEDS: PCA shift volume MISC SCH (07:16)
[2017-01-27 07:35] LABS: MEAN CORPUSCULAR HEMOGLOBIN 28.4 PG (27.0-31.0); MEAN CORPUSCULAR HGB CONC 33.3 G/DL (32.0-36.0); MEAN CORPUSCULAR VOLUME 85 FL (80-99); MEAN PLATELET VOLUME 5.7 FL (6.5-10.1); PLATELET COUNT 257 K/UL (150-450); RED BLOOD COUNT 2.48 M/UL (4.20-5.40); RED CELL DISTRIBUTION WIDTH 14.5 % (11.6-14.8); WHITE BLOOD COUNT 8.5 K/UL (4.8-10.8)
[2017-01-27 08:08] LABS: APPEARANCE,URINE SLIGHTLY CLOUDY; KETONES,URINE 3+ (NEGATIVE); LEUKOCYTE ESTERASE ,URINE NEGATIVE (NEGATIVE); NITRITE,URINE NEGATIVE (NEGATIVE); PH,URINE 6 (4.5-8.0); PROTEIN,URINE 2+ (NEGATIVE); UROBILINOGEN,URINE 1 MG/DL (0.0-1.0)
[2017-01-27 08:26] VITALS: BP 109/63
--- NOTE | 2017-01-27 08:47 | General Progress Note ---
TITA FLORES N.P. 01/27/17 0847: Assessment/Plan Assessment/Plan (1) Groin abscess Assessment & Plan: s/p stage 2 surgery POD 2 of excision of Bilateral Groin Hydradenitis Tmax 102 last night ID consulted; appreciate reccs Current management: Vancomycin IVPB, Cefepime IVPB, pharmacy to dose for Soft Skin Infection Pain control; currently on LOFTER Supp care SCDs Apprec Plastic Surgery input; planning for OR closure of bilateral groin wounds on Saturday. (2) Asthma Assessment & Plan: well controlled Cont alb nebs prn ICD Codes: J45.909 - Unspecified asthma, uncomplicated SNOMED: 724424807 (3) Hyperglycemia Assessment & Plan: Steroid induced, now finished taper Insulin sliding scale Continue levemir nightly and sliding scale Anemia secondary to acute blood loss hgb 6.8 >> 7.1 s/p 1 unit transfusion Transfuse 2nd unit, check CBC after Subjective Date patient seen: Jan 27, 2017 Time patient seen: 08:42 Constitutional: Reports: chills, fever, Denies: diaphoresis, malaise HEENT: Denies: blurred vision, eye pain, mouth pain, mouth swelling, tearing, throat swelling Cardiovascular: Denies: chest pain, edema, irregular heart rate Respiratory: Denies: cough, orthopnea, shortness of breath Gastrointestinal/Abdominal: Denies: abdomen distended, abdominal pain, black stools Genitourinary: Denies: discharge, flank pain, frequency Neurologic/Psychiatric: Denies: depressed, emotional problems, headache, weakness Endocrine: Denies: excessive sweating, intolerance to cold, intolerance to heat , unexplained weight gain, unexplained weight loss Allergies: Coded Allergies: No Known Allergies (Unverified , 01/22/17) Subjective Tmax of 102 last night. ID now following. Objective Last 24 Hour Vital Signs Date Time Temp Pulse Resp B/P Pulse Ox O2 Delivery O2 Flow Rate FiO2 01/27/17 08:26 98.2 91 18 109/63 97 Nasal Cannula 2.0 01/27/17 04:00 18 01/27/17 04:00 98.1 94 20 118/63 98 Room Air 01/27/17 00:07 97.7 91 19 116/64 98 Room Air 01/27/17 00:00 19 01/26/17 20:00 18 01/26/17 20:00 98.1 106 20 117/60 98 Room Air 01/26/17 19:10 96 Nasal Cannula 2.0 28 01/26/17 19:10 Nasal Cannula 2.0 28 01/26/17 19:00 102 16 Nasal Cannula 2.0 28 01/26/17 18:48 97.7 01/26/17 16:00 18 01/26/17 16:00 97.7 103 20 115/66 92 Room Air 01/26/17 12:24 98.6 01/26/17 11:33 102.0 109 18 114/65 97 Room Air 01/26/17 11:33 18 Intake and Output 01/26/17 01/27/17 19:00 07:00 Intake Total 800 ml 890.000 ml Output Total 850 ml 1900 ml Balance -50 ml -1010.000 ml Intake Oral 800 ml 560 ml IV Total 330.000 ml Output Urine Total 850 ml 1900 ml Laboratory Tests 01/27/17 06:00: White Blood Count 8.5, Red Blood Count 2.48L, Hemoglobin 7.1L, Hematocrit 21.2L , Mean Corpuscular Volume 85, Mean Corpuscular Hemoglobin 28.4, Mean Corpuscular Hemoglobin Concent 33.3, Red Cell Distribution Width 14.5, Platelet Count 257, Mean Platelet Volume 5.7L, Neutrophils (%) (Auto) , Lymphocytes (%) ( Auto) , Monocytes (%) (Auto) , Eosinophils (%) (Auto) , Basophils (%) (Auto) , Neutrophils % (Manual) [Pending], Lymphocytes % (Manual) [Pending], Platelet Estimate [Pending], Platelet Morphology [Pending] 01/27/17 07:00: Urine Color [Pending], Urine Appearance [Pending], Urine pH [Pending], Urine Specific [place] [Pending], Urine Protein [Pending], Urine Glucose (UA) [Pending ], Urine Ketones [Pending], Urine Occult Blood [Pending], Urine Nitrite [Pending ], Urine Bilirubin [Pending], Urine Urobilinogen [Pending], Urine Leukocyte Esterase [Pending], Urine RBC [Pending], Urine WBC [Pending], Urine Squamous Epithelial Cells [Pending], Urine Bacteria [Pending] Height (Feet): 5 Height (Inches): 3.00 Weight (Pounds): 206 General Appearance: no apparent distress, alert EENT: PERRL/EOMI, normal ENT inspection, TMs normal Neck: non-tender, normal alignment, supple Cardiovascular: normal peripheral pulses, normal rate, regular rhythm Respiratory/Chest: chest wall non-tender, lungs clear, normal breath sounds Abdomen: normal bowel sounds, non tender, soft Extremities: normal range of motion, non-tender, normal inspection Edema: no edema noted Arm (L), no edema noted Arm (R), no edema noted Leg (L), no edema noted Leg (R), no edema noted Pedal (L), no edema noted Pedal (R), no edema noted Generalized Edema: trace edema 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 I agree with the history, physical examination findings, assessment and plan of care as outlined above by the Nurse Practitioner with any additions or modifications noted. Subjective Allergies: Coded Allergies: No Known Allergies (Unverified , 01/22/17) TITA FLORES N.P. Jan 27, 2017 08:47 CHER NARAYAN Jan 31, 2017 16:22
[2017-01-27 08:49] LABS: AMORPHOUS SEDIMENT,UR MODERATE /LPF; BACTERIA,URINE FEW /HPF; MUCUS,URINE FEW /LPF (NONE/OCC); RBC,URINE 0-2 /HPF (0 - 2); SQUAMOUS EPITHELIAL CELL,UR FEW /LPF (NONE/OCC); WBC,URINE 0-2 /HPF (0 - 2)
[2017-01-27] MEDS ORDERED: Tubing IV Secondary IV ONE (08:51)
[2017-01-27] MEDS: Docusate 100mg tablet ORAL SCH ×2 (08:51→21:47)
[2017-01-27] MEDS ORDERED: Tubing IV Blood Pump IV ONE (08:51)
[2017-01-27] MEDS ORDERED: NS 275ml ONE (08:51)
[2017-01-27 10:36] LABS: ANISOCYTOSIS 1+; BAND NEUTROPHILS % (MANUAL) 0 % (0-8); BASOPHILS % (MANUAL) 0 % (0-2); EOSINOPHILS % (MANUAL) 0 % (0-3); HYPOCHROMASIA 1+; LYMPHOCYTES % (MANUAL) 20 % (20-45); NEUTROPHILS % (MANUAL) 76 % (45-75); PLATELET ESTIMATE ADEQUATE; PLATELET MORPHOLOGY NORMAL; TOTAL CELLS COUNTED 100
[2017-01-27 10:37] LABS: POLYCHROMASIA OCCASIONAL
--- NOTE | 2017-01-27 11:23 | Infectious Diseases Prog Note ---
Assessment/Plan Assessment/Plan Full consult dictated: A) 1) fevers, mild leukocytosis 2) s/p debridement of bilateral groin infected masses/abscesses/wound infection and right thigh infected mass/abscess/wound infection 3) hidradenitis suppurativa 4) dvt/pe/coumadin, recent steroids 5) asthma, steroid induced hyperglycemia 6) allergies - negative, fh-negative, mar noted, notes and records reviewed 7) d/w RN P) 1) vancomycin and cefepime 2) check labs, check final cultures 3) continue treatment per Dr. Montes De Oca and Dr. Estrella 4) orders entered and noted 5) pain mgt per primary, wound care 6) d/w patient 7) thank you Subjective Allergies: Coded Allergies: No Known Allergies (Unverified , 01/22/17) Objective Vital Signs Last 24 Hour Vital Signs Date Time Temp Pulse Resp B/P Pulse Ox O2 Delivery O2 Flow Rate FiO2 01/27/17 09:50 98.2 01/27/17 08:26 98.2 91 18 109/63 97 Nasal Cannula 2.0 01/27/17 08:00 20 01/27/17 04:00 18 01/27/17 04:00 98.1 94 20 118/63 98 Room Air 01/27/17 00:07 97.7 91 19 116/64 98 Room Air 01/27/17 00:00 19 01/26/17 20:00 18 01/26/17 20:00 98.1 106 20 117/60 98 Room Air 01/26/17 19:10 96 Nasal Cannula 2.0 28 01/26/17 19:10 Nasal Cannula 2.0 28 01/26/17 19:00 102 16 Nasal Cannula 2.0 28 01/26/17 16:00 18 01/26/17 16:00 97.7 103 20 115/66 92 Room Air 01/26/17 12:24 98.6 01/26/17 11:33 102.0 109 18 114/65 97 Room Air 01/26/17 11:33 18 Height (Feet): 5 Height (Inches): 3.00 Weight (Pounds): 206 Microbiology Date/Time Source Procedure Growth Status 01/26/17 03:25 Blood Blood Culture - Preliminary NO GROWTH AFTER 24 HOURS Resulted 01/26/17 03:15 Blood Blood Culture - Preliminary NO GROWTH AFTER 24 HOURS Resulted Laboratory Tests Test 01/27/17 06:00 01/27/17 07:00 White Blood Count 8.5 K/UL (4.8-10.8) Red Blood Count 2.48 M/UL (4.20-5.40) L Hemoglobin 7.1 G/DL (12.0-16.0) L Hematocrit 21.2 % (37.0-47.0) L Mean Corpuscular Volume 85 FL (80-99) Mean Corpuscular Hemoglobin 28.4 PG (27.0-31.0) Mean Corpuscular Hemoglobin Concent 33.3 G/DL (32.0-36.0) Red Cell Distribution Width 14.5 % (11.6-14.8) Platelet Count 257 K/UL (150-450) Mean Platelet Volume 5.7 FL (6.5-10.1) L Neutrophils (%) (Auto) % (45.0-75.0) Lymphocytes (%) (Auto) % (20.0-45.0) Monocytes (%) (Auto) % (1.0-10.0) Eosinophils (%) (Auto) % (0.0-3.0) Basophils (%) (Auto) % (0.0-2.0) Differential Total Cells Counted 100 Neutrophils % (Manual) 76 % (45-75) H Lymphocytes % (Manual) 20 % (20-45) Monocytes % (Manual) 4 % (1-10) Eosinophils % (Manual) 0 % (0-3) Basophils % (Manual) 0 % (0-2) Band Neutrophils 0 % (0-8) Platelet Estimate Adequate Platelet Morphology Normal Polychromasia Occasional Hypochromasia 1+ Anisocytosis 1+ Urine Color Yellow Urine Appearance Slightly cloudy Urine pH 6 (4.5-8.0) Urine Specific [place] 1.015 (1.005-1.035) Urine Protein 2+ (NEGATIVE) H Urine Glucose (UA) Negative (NEGATIVE) Urine Ketones 3+ (NEGATIVE) H Urine Occult Blood Negative (NEGATIVE) Urine Nitrite Negative (NEGATIVE) Urine Bilirubin Negative (NEGATIVE) Urine Urobilinogen 1 MG/DL (0.0-1.0) H Urine Leukocyte Esterase Negative (NEGATIVE) Urine RBC 0-2 /HPF (0 - 2) Urine WBC 0-2 /HPF (0 - 2) Urine Squamous Epithelial Cells Few /LPF (NONE/OCC) Urine Amorphous Sediment Moderate /LPF (NONE) H Urine Bacteria Few /HPF (NONE) Urine Mucus Few /LPF (NONE/OCC) H Current Medications Medications (Trade) Dose Ordered Sig/[place] Route PRN Reason Start Time Stop Time Status Last Admin Dose Admin Acetaminophen (Tylenol) 650 mg Q4H PRN ORAL FEVER 01/23/17 16:15 02/22/17 16:14 01/27/17 08:51 Al Hydroxide/Mg Hydroxide (Mylanta II) 30 ml Q6H PRN ORAL dyspepsia 01/22/17 17:15 02/21/17 17:14 Albuterol Sulfate (Proventil) 2.5 mg Q4H PRN HHN Shortness of Breath 01/22/17 17:45 01/27/17 17:44 Bisacodyl (Dulcolax) 10 mg HSPRN PRN RECTAL Constipation THIRD LINE 01/22/17 17:15 02/21/17 17:14 Cefepime HCl 1 gm/ Sodium Chloride 55 ml @ 110 mls/hr Q12HR@0600,1800 IVPB 01/26/17 16:00 02/02/17 15:59 01/27/17 06:10 Dextrose (Dextrose 50%) STAT PRN IV Hypoglycemia 01/22/17 17:30 02/21/17 17:29 Diphenhydramine HCl (Benadryl) 25 mg Q6H PRN ORAL Itching/Pruritis 01/22/17 17:15 02/21/17 17:14 01/27/17 08:51 Docusate Sodium (Colace) 100 mg EVERY 12 HOURS ORAL 01/22/17 21:00 02/21/17 20:59 01/27/17 08:51 Heparin Sodium (Porcine) (Heparin 5000 units/ml) 5,000 units Q8HR SUBQ 01/25/17 22:00 02/24/17 21:59 01/27/17 06:13 Hydromorphone HCl (Dilaudid) 2 mg Q3H PRN SUBQ Severe Pain (Pain Scale 7-10) 01/25/17 12:00 01/27/17 11:59 Hydromorphone HCl (Dilaudid) 2 mg Q4H PRN IVP Moderate Pain (Pain Scale 4-6) 01/25/17 12:00 01/27/17 11:59 Insulin Aspart (NovoLOG) BEFORE MEALS AND HS SUBQ 01/22/17 21:00 02/21/17 20:59 01/27/17 06:23 Insulin Aspart (NovoLOG) 7 units NOVOTIAC SUBQ 01/24/17 11:50 02/23/17 11:49 01/27/17 06:24 Insulin Detemir (Levemir) 8 units BEDTIME SUBQ 01/26/17 21:00 02/25/17 20:59 01/26/17 21:39 Ketorolac Tromethamine (Toradol 30mg) 30 mg Q6H PRN IV Breakthrough Pain 01/26/17 17:30 01/31/17 17:29 Magnesium Hydroxide (Mom) 30 ml HSPRN PRN ORAL Constipation SECOND LINE 01/22/17 17:15 02/21/17 17:14 Metoclopramide HCl (Reglan) 10 mg Q6H PRN IVP Nausea & Vomiting 01/25/17 10:00 02/24/17 09:59 Ondansetron HCl (Zofran) 4 mg Q6H PRN IVP Nausea & Vomiting 01/25/17 10:00 02/24/17 09:59 Polyethylene Glycol (Miralax) 17 gm HSPRN PRN ORAL Constipation FIRST LINE 01/22/17 17:15 02/21/17 17:14 Vancomycin HCl 1 ea 1 ea DAILY PRN MISC Per rx protocol 01/26/17 13:00 02/25/17 12:59 Vancomycin HCl/ Dextrose (Vancomycin/D5W) 275 ml @ 183.708 mls/hr Q12HR@0400,1600 IVPB 01/26/17 16:00 01/31/17 15:59 01/27/17 04:06 Zolpidem Tartrate (Ambien) 5 mg DAILYPRN PRN ORAL Insomnia 01/25/17 10:00 02/24/17 09:59 ARTHUR STERLING Jan 27, 2017 11:23
[2017-01-27 11:58] VITALS: BP 115/65
[2017-01-27] MEDS: Ketorolac 30mg Inj IV PRN (13:16)
[2017-01-27 15:31] LABS: BASOPHILS % (AUTO) 0.4 % (0.0-2.0); EOSINOPHILS % (AUTO) 1.7 % (0.0-3.0); LYMPHOCYTES % (AUTO) 15.5 % (20.0-45.0); MEAN CORPUSCULAR HEMOGLOBIN 28.4 PG (27.0-31.0); MEAN CORPUSCULAR HGB CONC 33.4 G/DL (32.0-36.0); MEAN CORPUSCULAR VOLUME 85 FL (80-99); MEAN PLATELET VOLUME 5.8 FL (6.5-10.1); MONOCYTES % (AUTO) 7.4 % (1.0-10.0); NEUTROPHILS % (AUTO) 74.9 % (45.0-75.0); PLATELET COUNT 320 K/UL (150-450); RED BLOOD COUNT 3.25 M/UL (4.20-5.40)
[2017-01-27 16:23] VITALS: BP 126/72
[2017-01-27 20:00] VITALS: BP 125/67
[2017-01-27] MEDS: Levemir Flexpen SUBQ SCH (21:49)
[2017-01-28] VITALS (16 sets, daily range): BP systolic 96–125; BP diastolic 52–70
--- NOTE | 2017-01-28 00:28 | Consultation ---
DATE OF CONSULTATION: 01/27/2017 INFECTIOUS DISEASE CONSULTATION ATTENDING PHYSICIAN: Ivonne Montes De Oca M.D. PRIMARY CARE PHYSICIAN: Kandice Estrella M.D. REASON FOR CONSULTATION: I was asked to see this patient because of fevers. REASON FOR ADMISSION: Infected groin masses, abscesses and wounds and history of hidradenitis suppurativa. HISTORY OF PRESENT ILLNESS: This is a 42-year-old female who comes in to [facility] with infected bilateral groin infected masses, abscesses and hidradenitis suppurativa and infected wounds. The patient is status post debridement of the groin abscesses and wounds. The patient also had a right thigh infected mass, abscess and wound infection. The patient also status post debridement of that. The patient has been having fevers and mild leukocytosis. Infectious Disease consultation requested. The patient is on vancomycin and cefepime. Fevers have improved today. Blood cultures are negative. Urinalysis shows leukocyte esterase negative. Initial chest x-ray of the patient was negative and consistent with no signs and symptoms to suggest pneumonia. MAR was noted. Orders were noted. Notes were reviewed. PAST MEDICAL HISTORY: The patient has past medical history of hidradenitis suppurativa, history of surgeries, and surgical debridement, history of DVT, PE and has been on Coumadin in the past, history of recent steroids and discussion with the patient, she states steroids were given by her technical specialist cytogenetics to decrease the pain of her hidradenitis process. She has history of asthma and steroid-induced hyperglycemia. She is also anemic at this time. Please see past medical history in medical order. MEDICATIONS: Upon reviewing the MAR, the patient is now on the following medications. She is on Toradol, cefepime, vancomycin, she is on heparin, Dilaudid, Zofran, Reglan, and Ambien. She is on NovoLog insulin, Tylenol, Colace, she is on Proventil, Dulcolax MOM, MiraLAX, and Benadryl. Please see medications in medical order and past medical history in medical order. ALLERGIES: No known drug allergies. No antibiotics allergies. SOCIAL HISTORY: Negative for smoking, alcohol or drug use. FAMILY HISTORY: Noncontributory. REVIEW OF SYSTEMS: Constitutional: She has Worthy. She has no central line. Head And Neck: No head pain, neck pain, thrush or dysphagia. Pulmonary: No congestion or shortness of breath. No secretions. Cardiac: No chest pain or palpitation. Gastrointestinal: No nausea, vomiting, or diarrhea. Genitourinary: She has a Worthy. Skin: No rash or itching. Extremities: No extremity pain. Neurologic: No seizures. PHYSICAL EXAMINATION: Vital Signs: Temperature 98.2 degrees, pulse rate 91, respiratory rate 18, blood pressure 109/63, and saturation 97%. T-max was 102 yesterday at 11:33 a.m. on 01/26/2017. GENERAL: Alert, responsive, in no acute distress. HEAD AND NECK: Oral exam, no thrush. Eye exam, no icterus. Normocephalic. No facial droop. No neck stiffness. LUNGS: Clear bilaterally. No rhonchi or rales. HEART: Regular. No gallop or murmur. ABDOMEN: Soft. Positive bowel sounds. Nontender. SKIN: She has no maculopapular rash. Her wounds in the groin and thigh area are covered. MUSCULOSKELETAL: Legs without cellulitis. No effusions. PERIPHERAL VASCULAR: No cyanosis or gangrene. GENITOURINARY: She has a Worthy. Urine is clear. LINES: Line sites without phlebitis. NEUROLOGIC: Intact. Nonfocal other exam is deferred. She is alert and oriented x3. Neurologically intact. LABORATORY AND DIAGNOSTIC DATA: Laboratory is s follows, creatinine is 0.8. White count 8.5, hemoglobin 7.1 and white count is as high as 11.7. Glucose has been as high as 350 on 01/22/2017, but now it is 195. Blood cultures have been negative. Urinalysis, leukocyte esterase is negative. Initial chest x-ray is negative. Venous duplex is negative for DVT. ASSESSMENT AND PLAN: 1. The patient has fever and leukocytosis. Blood culture is negative. Urinalysis, leukocyte esterase negative. She has no signs and symptoms suggestive of pneumonia. The patient has had two surgeries including bilateral groin debridement of the infected masses, abscesses and wounds and also the right thigh infected mass, abscess and wound. She has underlying hidradenitis suppurativa. With regards to her fevers, she certainly could have a postoperative fevers especially in view of debridement of abscesses and infected masses. At this time, we will continue vancomycin and cefepime. She has excellent methicillin-resistant Staphylococcus aureus and gram-negative coverage and we will follow the patient clinically. We will check final blood culture results and check followup labs. Watch creatinine closely and vancomycin, but her leukocytosis seems to have resolved. In regards to her anemia, have been discussed with nursing staff for immediate blood transfusion. 2. Hidradenitis suppurativa. 3. History of deep vein thrombosis and pulmonary embolism, on Coumadin in the past. 4. History of recent steroids. 5. Asthma. 6. Steroid-induced hyperglycemia. 7. Allergies are negative. 8. Family history noncontributory. 9. MAR as noted. 10. Case was discussed with RN. 11. Case was discussed with Dr. Montes De Oca and Dr. Estrella. 12. Case was discussed with the patient. 13. Notes were reviewed. Thank you for the consultation. Moraima Arreola M.D. DR: SAMANTHA JOB#: [id number] CC:
[2017-01-28] MEDS: Vancomycin 1gm in Dextrose 275ml IVPB SCH ×3 (04:00→22:07)
[2017-01-28] MEDS: Heparin 5000 units/ml inj SUBQ SCH ×4 (05:13→19:29)
[2017-01-28] MEDS: Cefepime HCl 1 GM in NS 55 ML IVPB SCH ×2 (05:13→17:29)
[2017-01-28] MEDS: NovoLOG Insulin Flexpen SUBQ SCH ×7 (05:30→22:06)
[2017-01-28] MEDS ORDERED: Tubing Blood Filter IV ONE (08:38)
[2017-01-28] MEDS ORDERED: NS 275ml ONE (08:38)
[2017-01-28] MEDS ORDERED: NS 550ML IV ONE (08:38)
[2017-01-28] MEDS: Docusate 100mg tablet ORAL SCH ×2 (09:00→22:06)
--- NOTE | 2017-01-28 09:53 | Pre-Procedure Note/Attestation ---
Pre-Procedure Note/Attestation Complete Prior to Procedure Planned Procedure: right Procedure Narrative: Closure of right buttock wound Indications for Procedure Pre-Operative Diagnosis: Right posterior thigh/buttock defect Attestation I attest that I discussed the nature of the procedure; its benefits; risks and complications; and alternatives (and the risks and benefits of such alternatives ), prior to the procedure, with the patient (or the patient's legal sales representative health insurance). I attest that, if there was a reasonable possibility of needing a blood transfusion, the patient (or the patient's legal sales representative health insurance) was given the [facility] standardized written summary, pursuant to the [place] Blood Safety Act ([place] Health and Safety Code # 1645, as amended). I attest that I re-evaluated the patient just prior to the surgery and that there has been no change in the patient's H&P, except as documented below: DYLON HILARIO Jan 28, 2017 09:53
--- NOTE | 2017-01-28 09:54 | Operative Note - PDOC ---
Operative Note Operative Note Pre-op Diagnosis: Right posterior thigh/buttock defect Procedure: Flap readvancement closure of right buttock wound- Post-op Diagnosis: Same Surgeon: Sameer Fast Food Manager: Patricia Anesthesia: general Specimen: yes Complications: none Condition: stable Estimated Blood Loss: volume - 100 Drains: none DYLON HILARIO Jan 28, 2017 09:54
[2017-01-28] MEDS ORDERED: DiphenhydrAMINE 50mg/ml Inj IVP PRN ×2 (10:00→12:15)
[2017-01-28] MEDS ORDERED: Muri-Lube ONE (10:11)
[2017-01-28] MEDS ORDERED: Bacitracin Oint 15gm Tube TOPIC ONE (10:11)
[2017-01-28] MEDS ORDERED: EPINEPHrine 1mg/1ml Amp ONE (10:11)
[2017-01-28] MEDS ORDERED: Lidocaine 1% 10mg/ml/Epi 0.005mg/ml 30ml vial INJ ONE (10:12)
[2017-01-28] MEDS ORDERED: Bacitracin 50000 Units Vial ONE (10:12)
[2017-01-28] MEDS ORDERED: Zemuron 50mg/5ml Inj IV ONE (10:45)
[2017-01-28] MEDS ORDERED: Neostigmine 1mg/ml 10ml Inj ONE (10:50)
[2017-01-28] MEDS ORDERED: Morphine Sulfate 10mg/ml Inj ONE (10:50)
[2017-01-28] MEDS ORDERED: Succinylcholine 20mg/ml 10ml vial ONE (10:50)
[2017-01-28] MEDS ORDERED: Midazolam 2mg/2ml Inj ONE (10:50)
[2017-01-28] MEDS ORDERED: Propofol 10mg/ml 20ml IV ONE (10:50)
[2017-01-28] MEDS ORDERED: Ketorolac 30mg Inj ONE (10:50)
[2017-01-28] MEDS ORDERED: fentaNYL 100 mcg/2 mL IV ONE (10:50)
[2017-01-28] MEDS ORDERED: Glycopyrrolate 0.2mg/ml 1ml Vial ONE (10:50)
[2017-01-28] MEDS ORDERED: LR 1000ml ONE (10:50)
[2017-01-28] MEDS ORDERED: NS Irrig 1000ml ONE (11:11)
[2017-01-28] MEDS ORDERED: Sterile Water Irrig 1000ml IRRIG ONE (11:11)
[2017-01-28] MEDS ORDERED: LR 1000ml 1,000 ML IVLG SCH (12:01)
--- NOTE | 2017-01-28 12:01 | Anethesia Preoperative Eval ---
Anesthesia Pre-op PMH/ROS General Date of Evaluation: Jan 28, 2017 Time of Evaluation: 10:40 Anesthesiologist: Ti ASA Score: ASA 2 Mallampati Score Class I : Soft palate, uvula, fauces, pillars visible Class II: Soft palate, uvula, fauces visible Class III: Soft palate, base of uvula visible Class IV: Only hard plate visible Mallampati Classification: Class II Surgeon: Sameer Diagnosis: Recurrent hydradenitis Surgical Procedure: R posterior tigh wound closure Anesthesia History: none Family History: no anesthesia problems Allergies: Coded Allergies: No Known Allergies (Unverified , 01/22/17) Medications: see eMAR Past Medical History Cardiovascular: Denies: CAD, HTN, NE, arrhythmia, other, valve dz Pulmonary: Reports: asthma - mild, Denies: COPD, LORI, other Gastrointestinal/Genitourinary: Reports: GERD, Denies: CRI, ESRD, other Neurologic/Psychiatric: Reports: depression/anxiety, Denies: CVA, TIA, dementia, other Endocrine: Denies: DM, hypothyroidism, other, steroids HEENT: Denies: [place] (L), [place] (R), cataract (L), cataract (R), glaucoma, other Hematology/Immune: Reports: DVT - H/O, anemia, Denies: bleeding disorder, other Musculoskeletal/Integumentary: Denies: DDD, DJD, OA, RA, edema, other Other: obesity PMH Narrative: as above PSxH Narrative: see chart Anesthesia Pre-op Phys. Exam Physician Exam Last Vital Signs Date Time Temp Pulse Resp B/P Pulse Ox O2 Delivery O2 Flow Rate FiO2 01/28/17 08:15 Nasal Cannula 3.0 32 01/28/17 08:15 97 01/28/17 08:15 92 20 01/28/17 08:00 97.9 111/58 Constitutional: NAD Neurologic: CN 2-12 intact Cardiovascular: RRR, no M/R/G Respiratory: CTA Gastrointestinal: S/NT/ND Airway Exam Mallampati Score: Class II MO: full Neck: flexible ROM: full Teeth: intact Dentures: no lower, no upper Anesthesia Pre-op A/P Labs Hematology Test 01/27/17 15:15 White Blood Count 9.0 K/UL (4.8-10.8) Red Blood Count 3.25 M/UL (4.20-5.40) L Hemoglobin 9.2 G/DL (12.0-16.0) L Hematocrit 27.6 % (37.0-47.0) #L Mean Corpuscular Volume 85 FL (80-99) Mean Corpuscular Hemoglobin 28.4 PG (27.0-31.0) Mean Corpuscular Hemoglobin Concent 33.4 G/DL (32.0-36.0) Red Cell Distribution Width 14.0 % (11.6-14.8) Platelet Count 320 K/UL (150-450) Mean Platelet Volume 5.8 FL (6.5-10.1) L Neutrophils (%) (Auto) 74.9 % (45.0-75.0) Lymphocytes (%) (Auto) 15.5 % (20.0-45.0) L Monocytes (%) (Auto) 7.4 % (1.0-10.0) Eosinophils (%) (Auto) 1.7 % (0.0-3.0) Basophils (%) (Auto) 0.4 % (0.0-2.0) Risk Assessment & Plan Assessment: ASA 2 Plan: GA with ETT prone position Status Change Before Surgery: No Pre-Antibiotics Drug: Ancef 1 gr. Given Within 1 Hr of Incision: Yes Time Given: 11:12 BRANDI COVARRUBIAS M.D. Jan 28, 2017 12:01
[2017-01-28] MEDS ORDERED: Hydromorphone 0.5mg/0.5ml inj IVP PRN (12:15)
[2017-01-28] MEDS ORDERED: Metoclopramide 10mg/2ml Inj IVP PRN (12:15)
[2017-01-28] MEDS ORDERED: Midazolam 2mg/2ml Inj IVP PRN (12:15)
[2017-01-28] MEDS ORDERED: fentaNYL 100 mcg/2 mL IV PRN (12:15)
[2017-01-28] MEDS ORDERED: Ketorolac 30mg Inj IV PRN (12:15)
[2017-01-28] MEDS ORDERED: Meperidine 25mg/ml Inj IV PRN (12:15)
--- NOTE | 2017-01-28 12:59 | Immediate Post-Op Evaluation ---
Immediate Post-Op Evalulation Immediate Post-Op Evalulation Procedure: Revision and closure of r posterior tigh wound Date of Evaluation: Jan 28, 2017 Time of Evaluation: 12:58 IV Fluids: 800 Blood Products: none Estimated Blood Loss: 50 Urinary Output: 150 Blood Pressure Systolic: 116 Blood Pressure Diastolic: 64 Pulse Rate: 89 Respiratory Rate: 22 O2 Sat by Pulse Oximetry: 99 Temperature (Fahrenheit): 97.7 Pain Score (1-10): 2 Nausea: No Vomiting: No Complications none Patient Status: reacts, patent, extubated, none Hydration Status: adequate BRANDI COVARRUBIAS M.D. Jan 28, 2017 12:59
[2017-01-28] MEDS: PCA HYDROmorphone 1mg/ml 30 ML IV PRN (14:09)
[2017-01-28] MEDS ORDERED: Rate Change PCA 1 Each MISC PRN (14:15)
--- NOTE | 2017-01-28 14:53 | General Progress Note ---
Assessment/Plan Status: stable Assessment/Plan (1) Groin abscess Assessment & Plan: s/p Excision of bilateral groin masses with flap elevation on 01/23/17 s/p Excision of posterior thigh mass with flap elevation 01/25/17 s/p Flap readvancement closure of right buttock wound on 01/28/17 Pain control; currently on [employer] Supp care SCDs (2) Asthma Assessment & Plan: well controlled Cont alb nebs prn ICD Codes: J45.909 - Unspecified asthma, uncomplicated SNOMED: 057113528 (3) Hyperglycemia Assessment & Plan: Steroid induced, now finished taper Insulin sliding scale Continue levemir nightly and sliding scale Anemia secondary to acute blood loss s/p 2U pRBCs, now improved Postop fever and leukocytosis likely 2/2 underlying abscess s/p debridement Appreciate ID rec's Cont vanco and cefepime per ID Subjective Date patient seen: Jan 28, 2017 Time patient seen: 14:53 ROS Limited/Unobtainable: No Constitutional: Reports: no symptoms HEENT: Reports: no symptoms Cardiovascular: Reports: no symptoms Respiratory: Reports: no symptoms Gastrointestinal/Abdominal: Reports: no symptoms Genitourinary: Reports: no symptoms Neurologic/Psychiatric: Reports: no symptoms Endocrine: Reports: no symptoms Hematologic/Lymphatic: Reports: no symptoms Allergies: Coded Allergies: No Known Allergies (Unverified , 01/22/17) All Systems: reviewed and negative except above Subjective Afebrile o/n WBC and Hgb improved Flap readvancement closure of right buttock wound today Pain controlled Tolerating diet Objective Last 24 Hour Vital Signs Date Time Temp Pulse Resp B/P Pulse Ox O2 Delivery O2 Flow Rate FiO2 01/28/17 14:46 18 01/28/17 14:30 97.6 76 16 106/58 99 Nasal Cannula 3.0 01/28/17 14:15 75 17 107/55 99 Nasal Cannula 3.0 01/28/17 14:09 18 01/28/17 14:00 97.5 73 17 104/54 99 Nasal Cannula 3.0 01/28/17 13:45 71 18 105/54 99 Nasal Cannula 3.0 01/28/17 13:30 79 19 112/52 99 Nasal Cannula 3.0 01/28/17 13:15 82 16 121/60 100 Simple Mask 6.0 01/28/17 13:04 85 16 109/60 100 Simple Mask 6.0 01/28/17 12:59 89 22 99 01/28/17 12:54 83 17 123/64 100 Simple Mask 6.0 01/28/17 12:49 81 16 124/68 100 Simple Mask 6.0 01/28/17 12:44 97.4 80 15 120/68 100 Simple Mask 6.0 01/28/17 08:15 Nasal Cannula 3.0 32 01/28/17 08:15 97 Nasal Cannula 3.0 32 01/28/17 08:15 92 20 Nasal Cannula 3.0 32 01/28/17 08:00 97.9 81 17 111/58 97 Room Air 01/28/17 04:00 98.1 85 20 119/69 95 Room Air 01/28/17 00:00 98.2 91 20 125/70 97 Room Air 01/27/17 20:06 Nasal Cannula 3.0 32 01/27/17 20:06 91 20 Nasal Cannula 3.0 32 01/27/17 20:06 97 Nasal Cannula 3.0 32 01/27/17 20:00 97.9 99 19 125/67 96 Room Air 01/27/17 16:23 98.2 91 20 126/72 98 Room Air Intake and Output 01/27/17 01/28/17 19:00 07:00 Intake Total 840 ml 240 ml Output Total 500 ml 950 ml Balance 340 ml -710 ml Intake Oral 840 ml 240 ml Output Urine Total 500 ml 950 ml # Voids 1 Laboratory Tests 01/27/17 15:15: White Blood Count 9.0, Red Blood Count 3.25L, Hemoglobin 9.2L, Hematocrit 27.6#L , Mean Corpuscular Volume 85, Mean Corpuscular Hemoglobin 28.4, Mean Corpuscular Hemoglobin Concent 33.4, Red Cell Distribution Width 14.0, Platelet Count 320, Mean Platelet Volume 5.8L, Neutrophils (%) (Auto) 74.9, Lymphocytes ( %) (Auto) 15.5L, Monocytes (%) (Auto) 7.4, Eosinophils (%) (Auto) 1.7, Basophils (%) (Auto) 0.4 01/28/17 03:00: Vancomycin Level Trough < 2.0L Height (Feet): 5 Height (Inches): 3.00 Weight (Pounds): 206 Objective General: alert, cooperative, no distress, appears stated age Head: normocephalic, without obvious abnormality, atraumatic Eyes: conjunctivae/corneas clear. PERRL, EOM's intact Throat: lips, mucosa, and tongue normal. MMM Neck: supple, symmetrical, trachea midline, and no JVD Lungs: clear to auscultation bilaterally Heart: regular rate and rhythm, S1, S2 normal, no murmur, click, rub or gallop Abdomen: soft, non-tender, non-distended, bowel sounds normal; no masses or organomegaly Extremities: extremities normal, atraumatic, no cyanosis or edema Pulses: 2+ and symmetric Skin: skin color, texture, turgor normal; no rashes or lesions Neurologic: grossly normal, no focal deficits Ana Vásquez M.D. Jan 28, 2017 14:53
--- NOTE | 2017-01-28 15:00 | Infectious Diseases Prog Note ---
Assessment/Plan Assessment/Plan A) 1) fevers, mild leukocytosis - improved 2) s/p debridement of bilateral groin infected masses/abscesses/wound infection and right thigh infected mass/abscess/wound infection, s/p closure 3) hidradenitis suppurativa 4) dvt/pe/coumadin, recent steroids 5) asthma, steroid induced hyperglycemia 6) allergies - negative, fh-negative, mar noted, notes and records reviewed 7) d/w RN P) 1) vancomycin and cefepime for now 2) watch labs 3) continue treatment per Dr. Montes De Oca and Dr. Estrella 4) orders entered and noted 5) pain mgt per primary, wound care 6) d/w patient 7) d/w Dr. Perez Subjective Constitutional: Denies: fever HEENT: Denies: congestion Respiratory: Denies: shortness of breath Cardiovascular: Denies: chest pain Gastrointestinal/Abdominal: Denies: nausea Neurologic: Denies: headache Psychiatric: Denies: depression Skin: Denies: rash Hematologic: Denies: bleeding Musculoskeletal: Denies: pain Allergies: Coded Allergies: No Known Allergies (Unverified , 01/22/17) Objective Vital Signs Last 24 Hour Vital Signs Date Time Temp Pulse Resp B/P Pulse Ox O2 Delivery O2 Flow Rate FiO2 01/28/17 14:30 97.6 76 16 106/58 99 Nasal Cannula 3.0 01/28/17 14:15 75 17 107/55 99 Nasal Cannula 3.0 01/28/17 14:09 18 01/28/17 14:00 97.5 73 17 104/54 99 Nasal Cannula 3.0 01/28/17 13:45 71 18 105/54 99 Nasal Cannula 3.0 01/28/17 13:30 79 19 112/52 99 Nasal Cannula 3.0 01/28/17 13:15 82 16 121/60 100 Simple Mask 6.0 01/28/17 13:04 85 16 109/60 100 Simple Mask 6.0 01/28/17 12:59 89 22 99 01/28/17 12:54 83 17 123/64 100 Simple Mask 6.0 01/28/17 12:49 81 16 124/68 100 Simple Mask 6.0 01/28/17 12:44 97.4 80 15 120/68 100 Simple Mask 6.0 01/28/17 08:15 Nasal Cannula 3.0 32 01/28/17 08:15 97 Nasal Cannula 3.0 32 01/28/17 08:15 92 20 Nasal Cannula 3.0 32 01/28/17 08:00 97.9 81 17 111/58 97 Room Air 01/28/17 04:00 98.1 85 20 119/69 95 Room Air 01/28/17 00:00 98.2 91 20 125/70 97 Room Air 01/27/17 20:06 Nasal Cannula 3.0 32 01/27/17 20:06 91 20 Nasal Cannula 3.0 32 01/27/17 20:06 97 Nasal Cannula 3.0 32 01/27/17 20:00 97.9 99 19 125/67 96 Room Air 01/27/17 16:23 98.2 91 20 126/72 98 Room Air Height (Feet): 5 Height (Inches): 3.00 Weight (Pounds): 206 General Appearance: no acute distress HEENT: normocephalic, atraumatic, anicteric, mucous membranes moist, PERRL, EOMI, pharynx normal, supple, no JVD Respiratory/Chest: lungs clear, normal breath sounds, no respiratory distress, no accessory muscle use Cardiovascular: normal rate, regular rhythm, no gallop/murmur, no JVD Abdomen: normal bowel sounds, soft, non tender, no organomegaly, non distended Genitourinary: other - no esquivel Extremities: no cyanosis Skin: no rash 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, alert, responsive Lymphatic: no neck adenopathy Musculoskeletal: no effusion Objective chest x-ray - negative Microbiology Date/Time Source Procedure Growth Status 01/27/17 06:10 Blood Blood Culture - Preliminary NO GROWTH AFTER 24 HOURS Resulted 01/27/17 06:00 Blood Blood Culture - Preliminary NO GROWTH AFTER 24 HOURS Resulted 01/26/17 03:25 Blood Blood Culture - Preliminary NO GROWTH AFTER 48 HOURS Resulted 01/26/17 03:15 Blood Blood Culture - Preliminary NO GROWTH AFTER 48 HOURS Resulted 01/27/17 07:00 Indwelling Cath Urine Culture - Preliminary Resulted Laboratory Tests Test 01/27/17 15:15 01/28/17 03:00 White Blood Count 9.0 K/UL (4.8-10.8) Red Blood Count 3.25 M/UL (4.20-5.40) L Hemoglobin 9.2 G/DL (12.0-16.0) L Hematocrit 27.6 % (37.0-47.0) #L Mean Corpuscular Volume 85 FL (80-99) Mean Corpuscular Hemoglobin 28.4 PG (27.0-31.0) Mean Corpuscular Hemoglobin Concent 33.4 G/DL (32.0-36.0) Red Cell Distribution Width 14.0 % (11.6-14.8) Platelet Count 320 K/UL (150-450) Mean Platelet Volume 5.8 FL (6.5-10.1) L Neutrophils (%) (Auto) 74.9 % (45.0-75.0) Lymphocytes (%) (Auto) 15.5 % (20.0-45.0) L Monocytes (%) (Auto) 7.4 % (1.0-10.0) Eosinophils (%) (Auto) 1.7 % (0.0-3.0) Basophils (%) (Auto) 0.4 % (0.0-2.0) Vancomycin Level Trough < 2.0 ug/mL (5.0-12.0) L Current Medications Medications (Trade) Dose Ordered Sig/[place] Route PRN Reason Start Time Stop Time Status Last Admin Dose Admin Acetaminophen (Tylenol) 650 mg Q4H PRN ORAL FEVER 01/28/17 10:00 02/27/17 09:59 UNV Acetaminophen (Tylenol) 650 mg Q4H PRN ORAL FEVER 01/23/17 16:15 02/22/17 16:14 01/27/17 08:51 Al Hydroxide/Mg Hydroxide (Mylanta II) 30 ml Q6H PRN ORAL dyspepsia 01/22/17 17:15 02/21/17 17:14 Al Hydroxide/Mg Hydroxide (Mylanta) 15 ml Q6H PRN ORAL DYSPEPSIA 01/28/17 10:00 02/27/17 09:59 UNV Bisacodyl (Dulcolax) 10 mg HSPRN PRN RECTAL Constipation THIRD LINE 01/22/17 17:15 02/21/17 17:14 Cefepime HCl/ Sodium Chloride (Maxipime/Sodium Chloride) 55 ml @ 110 mls/hr Q12HR@0600,1800 IVPB 01/26/17 16:00 02/02/17 15:59 01/28/17 05:13 Dextrose (Dextrose 50%) STAT PRN IV Hypoglycemia 01/22/17 17:30 02/21/17 17:29 Diphenhydramine HCl (Benadryl) 25 mg Q15M PRN IVP Itching 01/28/17 12:15 01/28/17 18:00 Diphenhydramine HCl (Benadryl) 25 mg Q6H PRN ORAL Itching/Pruritis 01/22/17 17:15 02/21/17 17:14 01/27/17 08:51 Diphenhydramine HCl 12.5 mg 12.5 mg Q6H PRN IVP Itching/Pruritis 01/28/17 10:00 02/27/17 09:59 UNV Docusate Sodium (Colace) 100 mg EVERY 12 HOURS ORAL 01/22/17 21:00 02/21/17 20:59 01/27/17 21:47 Fentanyl Citrate (Sublimaze 100 mcg/2 mL) 50 mcg Q10M PRN IV Moderate Pain (Pain Scale 4-6) 01/28/17 12:15 01/28/17 18:00 Heparin Sodium (Porcine) (Heparin 5000 units/ml) 5,000 units Q8HR SUBQ 01/25/17 22:00 02/24/17 21:59 01/27/17 21:48 Heparin Sodium (Porcine) (Heparin 5000 units/ml) 5,000 units TID SUBQ 01/28/17 13:00 02/27/17 12:59 UNV Hydromorphone HCl (Dilaudid) 0.5 mg Q15M PRN IVP Severe Pain (Pain Scale 7-10) 01/28/17 12:15 01/28/17 18:00 Hydromorphone HCl (Dilaudid) 2 mg Q3H PRN SUBQ Severe Pain (Pain Scale 7-10) 01/28/17 14:15 01/30/17 14:14 Hydromorphone HCl (Dilaudid) 2 mg Q4H PRN IVP Moderate Pain (Pain Scale 4-6) 01/28/17 14:15 02/04/17 14:14 Hydromorphone HCl (DBA Dilaudid) 30 ml @ 0 mls/hr Q24H PRN IV For Pain 01/28/17 14:15 01/30/17 14:14 01/28/17 14:09 Insulin Aspart (NovoLOG) BEFORE MEALS AND HS SUBQ 01/22/17 21:00 02/21/17 20:59 01/28/17 05:32 Insulin Aspart (NovoLOG) 7 units NOVOTIAC SUBQ 01/24/17 11:50 02/23/17 11:49 01/28/17 05:30 Insulin Detemir 8 units 8 units BEDTIME SUBQ 01/26/17 21:00 02/25/17 20:59 01/27/17 21:49 Ketorolac Tromethamine (Toradol 30mg) 30 mg Q1H PRN IV Severe Breakthru Pain (>7) 01/28/17 12:15 01/28/17 18:00 Ketorolac Tromethamine (Toradol 30mg) 30 mg Q6H PRN IV Breakthrough Pain 01/26/17 17:30 01/31/17 17:29 01/27/17 13:16 Magnesium Hydroxide (Mom) 30 ml HSPRN PRN ORAL Constipation SECOND LINE 01/22/17 17:15 02/21/17 17:14 Meperidine HCl (Demerol) 25 mg Q15M PRN IV Shivering 01/28/17 12:15 01/28/17 18:00 Metoclopramide HCl (Reglan) 10 mg Q1H PRN IVP Nausea & Vomiting 01/28/17 12:15 01/28/17 18:00 Metoclopramide HCl (Reglan) 10 mg Q6H PRN IVP Nausea & Vomiting 01/25/17 10:00 02/24/17 09:59 Midazolam HCl (Versed 2mg/2ml vial) 1 mg Q15M PRN IVP For Anxiety 01/28/17 12:15 01/28/17 18:00 Miscellaneous Medication (DBA Rate Change) 1 ea DAILY PRN MISC rate change 01/28/17 14:15 01/30/17 14:14 Miscellaneous Medication (DBA shift volume) 1 ea Q8HR@0700,1900 MISC 01/28/17 19:00 01/30/17 18:59 Ondansetron HCl (Zofran) 4 mg Q6H PRN IVP Nausea & Vomiting 01/28/17 10:00 02/27/17 09:59 UNV Ondansetron HCl (Zofran) 4 mg Q6H PRN IVP Nausea & Vomiting 01/25/17 10:00 02/24/17 09:59 Polyethylene Glycol (Miralax) 17 gm HSPRN PRN ORAL Constipation FIRST LINE 01/22/17 17:15 02/21/17 17:14 Vancomycin HCl 1 ea 1 ea DAILY PRN MISC Per rx protocol 01/26/17 13:00 02/25/17 12:59 Vancomycin HCl/ Dextrose (Vancomycin/D5W) 275 ml @ 183.708 mls/hr Q8H IVPB 01/28/17 04:00 02/02/17 03:59 01/28/17 12:56 Zolpidem Tartrate (Ambien) 5 mg DAILYPRN PRN ORAL Insomnia 01/25/17 10:00 02/24/17 09:59 ARTHUR STERLING Jan 28, 2017 15:00
--- NOTE | 2017-01-28 18:18 | Operative Note - Dictated ---
DATE OF OPERATION: 01/28/2017 PREOPERATIVE DIAGNOSIS: Open right lower buttock post superior posterior thigh wound. POSTOPERATIVE DIAGNOSIS: Open right lower buttock post superior posterior thigh wound. PROCEDURES: 1. Preparation of right lower buttock wound for flap coverage. 2. Readvancement of posterior thigh flap for closure of right lower buttock wound. 3. Readvancement of rotational gluteal buttock flap for closure of right buttock wound. SURGEON: Kandice Estrella M.D. VET TECH: Chani Maddox M.D. ANESTHESIA: General. COMPLICATIONS: None. DRAINS: One ANGY size #15. DISPOSITION: Stable to the recovery room. INDICATIONS FOR SURGERY: This is a 42-year-old female, who is now postoperative day #3 from the radical excision of lower buttock mass with flap elevation at that time, who presents now for definitive wound closure of the right lower buttock wound. She understands the risks and benefits of surgery and agrees to proceed. DETAILS OF THE OPERATION: The patient was brought to the operating room and laid in the prone position on the operating table. Her lower back and buttock regions were prepped and draped in a sterile and usual fashion. We first began by reelevating the previously raised flaps of the buttock as well as the posterior thigh and we noted that the wound that needed to be debrided in preparation for flap coverage, as such, the electrocautery was used to debride the wound bed down to healthy bleeding punctate bleeding and healthy tissue. We also performed some skin edge debridement to further prepare the wound for flap transfer. We noted that the need to be more mobilization of both the posterior thigh and rotational advancement flaps from the buttock, as such the flaps were further advanced by releasing the attachments to the gluteus muscle off of the rotational advancement flap. To further mobilize the flap and we also readvanced and release some more of the fascial attachments of the posterior thigh flap to allow for advancement. Once this was done, the wounds were copiously irrigated with pulse lavage. Hemostasis was achieved and the flaps were then inset over the defect with some of the rotational gluteal advancement flap needing debridement to allow for a good contour prior to inset. A 0 and 2-0 Vicryl sutures were used for the deep layers and 3-0 Vicryl was used for some of the dermal openings and the skin was closed with a combination of gustavo as well as a 2-0 Prolene towards the midline. The patient tolerated the procedure well. There was no complications. Kandice Estrella M.D. DR: AKHIL JOB#: [id number] CC:
[2017-01-28] MEDS: PCA shift volume MISC SCH (19:00)
[2017-01-28] MEDS: Ketorolac 30mg Inj IV PRN (19:32)
[2017-01-28] MEDS: Levemir Flexpen SUBQ SCH (22:05)
[2017-01-29] VITALS: BP 102/60
[2017-01-29 04:00] VITALS: BP 119/61
[2017-01-29 04:43] LABS: ANION GAP 13 (5-15); CARBON DIOXIDE 23 mEQ/L (20-30); CHLORIDE 102 mEQ/L (98-107); CREATININE 0.7 mg/dL (0.5-0.9); GLOMERULAR FILTRATION RATE > 60 mL/min (>60); HEMOLYSIS 2; POTASSIUM 3.4 mEQ/L (3.4-4.9); SODIUM 138 mEQ/L (135-145)
[2017-01-29] MEDS: Cefepime HCl 1 GM in NS 55 ML IVPB SCH ×2 (05:22→05:40)
[2017-01-29] MEDS: Ketorolac 30mg Inj IV PRN (05:33)
[2017-01-29] MEDS: NovoLOG Insulin Flexpen SUBQ SCH ×7 (05:37→21:31)
[2017-01-29] MEDS: PCA shift volume MISC SCH ×2 (07:15→19:00)
--- NOTE | 2017-01-29 07:47 | 48 Hour Post Anesthesia Eval ---
Post Anesthesia Evaluation Procedure: Revision and closure of r posterior tigh wound Date of Evaluation: Jan 29, 2017 Time of Evaluation: 07:15 Blood Pressure Systolic: 119 0: 81 Pulse Rate: 91 Respiratory Rate: 16 Temperature (Fahrenheit): 98.2 O2 Sat by Pulse Oximetry: 94 Airway: patent Nausea: No Vomiting: No Pain Intensity: 3 Hydration Status: adequate Cardiopulmonary Status: at baseline Mental Status/LOC: patient returned to baseline Post-Anesthesia Complications: 0 Follow-up care needed: N/A - further care as per primary team PHAN RAMÍREZ M.D. Jan 29, 2017 07:47
[2017-01-29 08:00] VITALS: BP 109/65
[2017-01-29] MEDS: Docusate 100mg tablet ORAL SCH ×2 (09:56→21:27)
[2017-01-29] MEDS: Vancomycin 1250mg in D5W 275ml IVPB SCH ×2 (09:57→21:29)
--- NOTE | 2017-01-29 10:01 | General Progress Note ---
Progress Note Progress Note Pt seen and examined. POD # 1from closure of r buttock wound. Doing well and pain is well controlled. Dressings CDI Plan for thigh wound closures on . MD YANELIS Frost AMIR Jan 29, 2017 10:01
[2017-01-29] MEDS: Heparin 5000 units/ml inj SUBQ SCH ×3 (10:05→18:00)
[2017-01-29 12:00] VITALS: BP 127/74
[2017-01-29] MEDS: PCA HYDROmorphone 1mg/ml 30 ML IV PRN (13:56)
[2017-01-29] MEDS: Fluconazole 100mg tab ORAL SCH (16:30)
[2017-01-29 20:00] VITALS: BP 128/66
--- NOTE | 2017-01-29 21:24 | General Progress Note ---
Assessment/Plan Status: stable Assessment/Plan (1) Groin abscess Assessment & Plan: Appreciate plastic surgery rec's s/p Excision of bilateral groin masses with flap elevation on 01/23/17 s/p Excision of posterior thigh mass with flap elevation 01/25/17 s/p Flap readvancement closure of right buttock wound on 01/28/17 Pain control; currently on [employer] Supp care SCDs (2) Asthma Assessment & Plan: well controlled Cont alb nebs prn ICD Codes: J45.909 - Unspecified asthma, uncomplicated SNOMED: [id number] (3) Hyperglycemia Assessment & Plan: Steroid induced, now finished taper Insulin sliding scale Continue levemir nightly and sliding scale Anemia secondary to acute blood loss s/p 2U pRBCs, now improved Postop fever and leukocytosis likely 2/2 underlying abscess s/p debridement Appreciate ID rec's Cont vanco and cefepime per ID Subjective Date patient seen: Jan 29, 2017 Time patient seen: 16:00 ROS Limited/Unobtainable: No Constitutional: Reports: no symptoms HEENT: Reports: no symptoms Cardiovascular: Reports: no symptoms Respiratory: Reports: no symptoms Gastrointestinal/Abdominal: Reports: no symptoms Genitourinary: Reports: no symptoms Neurologic/Psychiatric: Reports: no symptoms Endocrine: Reports: no symptoms Hematologic/Lymphatic: Reports: no symptoms Allergies: Coded Allergies: No Known Allergies (Unverified , 01/22/17) All Systems: reviewed and negative except above Subjective Afebrile o/n WBC and Hgb improved Pain controlled Tolerating diet No BM in a few days Objective Last 24 Hour Vital Signs Date Time Temp Pulse Resp B/P Pulse Ox O2 Delivery O2 Flow Rate FiO2 01/29/17 20:00 16 01/29/17 20:00 100.4 102 16 128/66 93 Room Air 01/29/17 19:38 Room Air 01/29/17 19:38 95 Room Air 01/29/17 16:00 18 01/29/17 12:00 99.1 92 18 127/74 96 Room Air 01/29/17 12:00 18 01/29/17 08:00 17 01/29/17 08:00 98.1 85 17 109/65 96 Room Air 01/29/17 07:47 91 16 94 01/29/17 04:00 98.2 91 18 119/61 94 Nasal Cannula 2.0 4/11/17 04:00 16 01/29/17 00:00 98.1 82 18 102/60 98 Nasal Cannula 2.0 01/29/17 00:00 17 Intake and Output 01/28/17 01/29/17 19:00 07:00 Intake Total 1160 ml 320 ml Output Total 640 ml 1315 ml Balance 520 ml -995 ml Intake Oral 360 ml 320 ml IV Total 800 ml Output Urine Total 550 ml 1300 ml Drainage Total 40 ml 15 ml Estimated Blood Loss 50 ml Laboratory Tests 01/29/17 03:30: Sodium Level 138, Potassium Level 3.4, Chloride Level 102, Carbon Dioxide Level 23, Anion Gap 13, Blood Urea Nitrogen 8, Creatinine 0.7, Estimat Glomerular Filtration Rate > 60, Glucose Level 146H, Calcium Level 8.0L, Vancomycin Level Trough 20.2H Height (Feet): 5 Height (Inches): 3.00 Weight (Pounds): 206 Objective General: alert, cooperative, no distress, appears stated age Head: normocephalic, without obvious abnormality, atraumatic Eyes: conjunctivae/corneas clear. PERRL, EOM's intact Throat: lips, mucosa, and tongue normal. MMM Neck: supple, symmetrical, trachea midline, and no JVD Lungs: clear to auscultation bilaterally Heart: regular rate and rhythm, S1, S2 normal, no murmur, click, rub or gallop Abdomen: soft, non-tender, non-distended, bowel sounds normal; no masses or organomegaly Extremities: extremities normal, atraumatic, no cyanosis or edema Pulses: 2+ and symmetric Skin: skin color, texture, turgor normal; no rashes or lesions Neurologic: grossly normal, no focal deficits Ana Vásquez M.D. Jan 29, 2017 21:24
[2017-01-29] MEDS: Levemir Flexpen SUBQ SCH (21:32)
[2017-01-30] VITALS: BP 119/64
[2017-01-30 04:00] VITALS: BP 108/62
[2017-01-30] MEDS: Cefepime HCl 1 GM in NS 55 ML IVPB SCH ×2 (06:36→17:36)
[2017-01-30] MEDS: NovoLOG Insulin Flexpen SUBQ SCH ×7 (06:36→20:22)
[2017-01-30] MEDS: PCA shift volume MISC SCH ×2 (07:25→19:06)
[2017-01-30 08:00] VITALS: BP 121/66
[2017-01-30] MEDS: Docusate 100mg tablet ORAL SCH ×2 (08:40→20:21)
[2017-01-30] MEDS: Heparin 5000 units/ml inj SUBQ SCH ×3 (08:44→17:43)
[2017-01-30] MEDS: Vancomycin 1250mg in D5W 275ml IVPB SCH ×2 (09:50→22:10)
[2017-01-30 12:00] VITALS: BP 130/66
[2017-01-30] MEDS ORDERED: Rate Change PCA 1 Each MISC PRN (13:15)
--- NOTE | 2017-01-30 13:18 | Infectious Diseases Prog Note ---
Assessment/Plan Assessment/Plan A) 1) fevers, mild leukocytosis - improved, lgt x 1 only 2) s/p debridement of bilateral groin infected masses/abscesses/wound infection and right thigh infected mass/abscess/wound infection, s/p closure 3) hidradenitis suppurativa 4) dvt/pe/coumadin, recent steroids 5) asthma, steroid induced hyperglycemia 6) allergies - negative, fh-negative, mar noted, notes and records reviewed 7) d/w RN P) 1) vancomycin and cefepime 2) watch cr on vancomycin, watch temps 3) continue treatment per Dr. Montes De Oca and Dr. Estrella 4) orders entered and noted 5) pain mgt per primary, wound care 6) d/w patient Subjective Constitutional: Reports: fever - lgt x 1 - 100.4, Denies: chills HEENT: Denies: congestion Respiratory: Denies: shortness of breath Cardiovascular: Denies: chest pain Gastrointestinal/Abdominal: Denies: diarrhea, nausea, vomiting Genitourinary: Reports: other - + esquivel Neurologic: Denies: headache Psychiatric: Denies: depression Skin: Denies: rash Hematologic: Denies: bleeding Musculoskeletal: Denies: pain Allergies: Coded Allergies: No Known Allergies (Unverified , 01/22/17) Objective Vital Signs Last 24 Hour Vital Signs Date Time Temp Pulse Resp B/P Pulse Ox O2 Delivery O2 Flow Rate FiO2 01/30/17 12:00 18 01/30/17 08:00 97.0 76 18 121/66 98 Room Air 01/30/17 08:00 18 01/30/17 04:00 16 01/30/17 04:00 97.0 75 18 108/62 98 Room Air 01/30/17 00:00 16 01/30/17 00:00 96.1 78 18 119/64 97 Room Air 01/29/17 22:42 98.6 01/29/17 20:00 16 01/29/17 20:00 100.4 102 16 128/66 93 Room Air 01/29/17 19:38 Room Air 01/29/17 19:38 95 Room Air 01/29/17 16:00 18 Height (Feet): 5 Height (Inches): 3.00 Weight (Pounds): 206 General Appearance: no acute distress HEENT: normocephalic, atraumatic, anicteric, mucous membranes moist, PERRL, supple, no JVD Respiratory/Chest: lungs clear, normal breath sounds, no respiratory distress, no accessory muscle use Cardiovascular: normal rate, regular rhythm, no gallop/murmur, no JVD Abdomen: normal bowel sounds, soft, non tender, no organomegaly, non distended Genitourinary: other - + esquivel - urine fairl clear Extremities: no cyanosis Skin: no rash Neurologic/Psychiatric: instrument technician helper II-XII grossly normal, alert, oriented x 3, responsive Lymphatic: no neck adenopathy Musculoskeletal: no effusion Objective chest x-ray - negative Microbiology Date/Time Source Procedure Growth Status 01/27/17 06:10 Blood Blood Culture - Preliminary NO GROWTH AFTER 48 HOURS Resulted 01/27/17 07:00 Indwelling Cath Urine Culture - Final Nel Krusei Complete Labs Test 01/27/17 15:15 01/28/17 03:00 01/29/17 03:30 White Blood Count 9.0 K/UL (4.8-10.8) Red Blood Count 3.25 M/UL (4.20-5.40) Hemoglobin 9.2 G/DL (12.0-16.0) Hematocrit 27.6 % (37.0-47.0) Mean Corpuscular Volume 85 FL (80-99) Mean Corpuscular Hemoglobin 28.4 PG (27.0-31.0) Mean Corpuscular Hemoglobin Concent 33.4 G/DL (32.0-36.0) Red Cell Distribution Width 14.0 % (11.6-14.8) Platelet Count 320 K/UL (150-450) Mean Platelet Volume 5.8 FL (6.5-10.1) Neutrophils (%) (Auto) 74.9 % (45.0-75.0) Lymphocytes (%) (Auto) 15.5 % (20.0-45.0) Monocytes (%) (Auto) 7.4 % (1.0-10.0) Eosinophils (%) (Auto) 1.7 % (0.0-3.0) Basophils (%) (Auto) 0.4 % (0.0-2.0) Vancomycin Level Trough < 2.0 ug/mL (5.0-12.0) 20.2 ug/mL (5.0-12.0) Sodium Level 138 mEQ/L (135-145) Potassium Level 3.4 mEQ/L (3.4-4.9) Chloride Level 102 mEQ/L (98-107) Carbon Dioxide Level 23 mEQ/L (20-30) Anion Gap 13 (5-15) Blood Urea Nitrogen 8 mg/dL (7-23) Creatinine 0.7 mg/dL (0.5-0.9) Estimat Glomerular Filtration Rate > 60 mL/min (>60) Glucose Level 146 mg/dL (74-106) Calcium Level 8.0 mg/dL (8.6-10.2) Current Medications Medications (Trade) Dose Ordered Sig/Grayson Route PRN Reason Start Time Stop Time Status Last Admin Dose Admin Acetaminophen (Tylenol) 650 mg Q4H PRN ORAL FEVER 01/28/17 10:00 02/27/17 09:59 01/29/17 21:28 Al Hydroxide/Mg Hydroxide 15 ml 15 ml Q6H PRN ORAL DYSPEPSIA 01/28/17 10:00 02/27/17 09:59 Bisacodyl (Dulcolax) 10 mg HSPRN PRN RECTAL Constipation THIRD LINE 01/22/17 17:15 02/21/17 17:14 Cefepime HCl/ Sodium Chloride (Maxipime/Sodium Chloride) 55 ml @ 110 mls/hr Q12HR@0600,1800 IVPB 01/26/17 16:00 02/02/17 15:59 01/30/17 06:36 Dextrose (Dextrose 50%) STAT PRN IV Hypoglycemia 01/22/17 17:30 02/21/17 17:29 Diphenhydramine HCl (Benadryl) 12.5 mg Q6H PRN IVP Itching/Pruritis 01/30/17 16:00 03/01/17 23:59 UNV Docusate Sodium (Colace) 100 mg EVERY 12 HOURS ORAL 01/22/17 21:00 02/21/17 20:59 01/30/17 08:40 Fluconazole 200 mg 200 mg QPM ORAL 01/29/17 16:30 02/03/17 16:29 01/29/17 16:30 Heparin Sodium (Porcine) (Heparin 5000 units/ml) 5,000 units TID SUBQ 01/28/17 13:00 5/10/17 12:59 01/30/17 13:05 Hydromorphone HCl (Dilaudid) 2 mg Q3H PRN SUBQ Severe Pain (Pain Scale 7-10) 01/30/17 14:15 02/01/17 23:59 UNV Hydromorphone HCl (Dilaudid) 2 mg Q4H PRN IVP Moderate Pain (Pain Scale 4-6) 01/30/17 14:15 02/06/17 23:59 UNV Hydromorphone HCl (RACING BOARD MARKER Dilaudid) 30 ml @ 0 mls/hr Q24H PRN IV For Pain 01/30/17 14:15 02/01/17 23:59 UNV Insulin Aspart (NovoLOG) BEFORE MEALS AND HS SUBQ 01/22/17 21:00 02/21/17 20:59 01/30/17 12:00 Insulin Aspart (NovoLOG) 7 units NOVOTIAC SUBQ 01/24/17 11:50 02/23/17 11:49 01/30/17 12:00 Insulin Detemir (Levemir) 8 units BEDTIME SUBQ 01/26/17 21:00 02/25/17 20:59 01/29/17 21:32 Ketorolac Tromethamine (Toradol 30mg) 30 mg Q6H PRN IV Breakthrough Pain 01/26/17 17:30 01/31/17 17:29 01/29/17 05:33 Magnesium Hydroxide (Mom) 30 ml HSPRN PRN ORAL Constipation SECOND LINE 01/22/17 17:15 02/21/17 17:14 Miscellaneous Medication (RACING BOARD MARKER Rate Change) 1 ea DAILY PRN MISC rate change 01/30/17 13:15 02/01/17 23:59 UNV Miscellaneous Medication (RACING BOARD MARKER shift volume) 1 ea Q8HR@0700,1900 MISC 01/30/17 19:00 02/01/17 23:59 UNV Ondansetron HCl (Zofran) 4 mg Q6H PRN IVP Nausea & Vomiting 01/30/17 16:00 03/01/17 23:59 UNV Polyethylene Glycol (Miralax) 17 gm HSPRN PRN ORAL Constipation FIRST LINE 01/22/17 17:15 5/4/17 17:14 Vancomycin HCl 1 ea 1 ea DAILY PRN MISC Per rx protocol 01/26/17 13:00 02/25/17 12:59 Vancomycin HCl/ Dextrose (Vancomycin/D5W) 275 ml @ 183.708 mls/hr Q12H IVPB 01/29/17 10:00 02/03/17 09:59 01/30/17 09:50 Zolpidem Tartrate (Ambien) 5 mg DAILYPRN PRN ORAL Insomnia 01/25/17 10:00 02/24/17 09:59 ARTHUR STERLING Jan 30, 2017 13:18
[2017-01-30] MEDS ORDERED: PCA HYDROmorphone 1mg/ml 30 ML IV PRN (14:15)
--- NOTE | 2017-01-30 14:27 | General Progress Note ---
Assessment/Plan Status: stable Assessment/Plan (1) Groin abscess Assessment & Plan: Appreciate plastic surgery rec's s/p Excision of bilateral groin masses with flap elevation on 01/23/17 s/p Excision of posterior thigh mass with flap elevation 01/25/17 s/p Flap readvancement closure of right buttock wound on 01/28/17 Plan for thigh wound closures tomorrow; NPO at [place] Pain control; currently on MANAGER DOCUMENTATION Supp care SCDs (2) Asthma Assessment & Plan: well controlled Cont alb nebs prn ICD Codes: J45.909 - Unspecified asthma, uncomplicated SNOMED: 052258414 (3) Hyperglycemia Assessment & Plan: Steroid induced, now finished taper Insulin sliding scale Continue levemir nightly and sliding scale Anemia secondary to acute blood loss s/p 2U pRBCs, now improved Postop fever and leukocytosis likely 2/2 underlying abscess s/p debridement Appreciate ID rec's Cont vanco and cefepime per ID Fungal cystitis 2/2 Nel Cont fluconazole per ID (01/29-) Subjective Date patient seen: Jan 30, 2017 Time patient seen: 14:25 ROS Limited/Unobtainable: No Constitutional: Reports: no symptoms HEENT: Reports: no symptoms Cardiovascular: Reports: no symptoms Respiratory: Reports: no symptoms Gastrointestinal/Abdominal: Reports: no symptoms Genitourinary: Reports: no symptoms Neurologic/Psychiatric: Reports: no symptoms Endocrine: Reports: no symptoms Hematologic/Lymphatic: Reports: no symptoms Allergies: Coded Allergies: No Known Allergies (Unverified , 01/22/17) Subjective Temp to 100.4 overnight L hand with some swelling at site of prior IV, now improving. No redness Ambulated today No BM yet Pain controlled Plan for OR tomorrow Objective Last 24 Hour Vital Signs Date Time Temp Pulse Resp B/P Pulse Ox O2 Delivery O2 Flow Rate FiO2 01/30/17 12:00 99.3 94 21 130/66 97 Room Air 01/30/17 12:00 18 01/30/17 08:00 97.0 76 18 121/66 98 Room Air 01/30/17 08:00 18 01/30/17 04:00 16 01/30/17 04:00 97.0 75 18 108/62 98 Room Air 01/30/17 00:00 16 01/30/17 00:00 96.1 78 18 119/64 97 Room Air 01/29/17 22:42 98.6 01/29/17 20:00 16 01/29/17 20:00 100.4 102 16 128/66 93 Room Air 01/29/17 19:38 Room Air 01/29/17 19:38 95 Room Air 01/29/17 16:00 18 Intake and Output 01/29/17 01/30/17 19:00 07:00 Intake Total 800 ml Output Total 2050 ml 1610 ml Balance -1250 ml -1610 ml Intake Oral 800 ml Output Urine Total 2050 ml 1600 ml Drainage Total 10 ml Height (Feet): 5 Height (Inches): 3.00 Weight (Pounds): 206 Objective General: alert, cooperative, no distress, appears stated age Head: normocephalic, without obvious abnormality, atraumatic Eyes: conjunctivae/corneas clear. PERRL, EOM's intact Throat: lips, mucosa, and tongue normal. MMM Neck: supple, symmetrical, trachea midline, and no JVD Lungs: clear to auscultation bilaterally Heart: regular rate and rhythm, S1, S2 normal, no murmur, click, rub or gallop Abdomen: soft, non-tender, non-distended, bowel sounds normal; no masses or organomegaly Extremities: extremities normal, atraumatic, no cyanosis or edema Pulses: 2+ and symmetric Skin: skin color, texture, turgor normal; no rashes or lesions Neurologic: grossly normal, no focal deficits Ana Vásquez M.D. Jan 30, 2017 14:27
[2017-01-30] MEDS ORDERED: DiphenhydrAMINE 50mg/ml Inj IVP PRN (16:00)
[2017-01-30 16:49] VITALS: BP 141/85
[2017-01-30] MEDS: Fluconazole 100mg tab ORAL SCH (16:55)
[2017-01-30 20:07] VITALS: BP 143/82
[2017-01-30] MEDS: Levemir Flexpen SUBQ SCH (20:23)
[2017-01-30] MEDS: Ketorolac 30mg Inj IV PRN (22:17)
[2017-01-31] VITALS (14 sets, daily range): BP systolic 118–140; BP diastolic 69–82
[2017-01-31] MEDS: Cefepime HCl 1 GM in NS 55 ML IVPB SCH ×2 (05:54→19:34)
[2017-01-31] MEDS: NovoLOG Insulin Flexpen SUBQ SCH ×7 (05:56→20:24)
[2017-01-31] MEDS: PCA shift volume MISC SCH (07:09)
[2017-01-31] MEDS ORDERED: Lidocaine 1% 10mg/ml/Epi 0.005mg/ml 30ml vial INJ ONE (07:14)
[2017-01-31] MEDS ORDERED: Bacitracin 50000 Units Vial ONE (07:14)
[2017-01-31] MEDS: Docusate 100mg tablet ORAL SCH ×2 (07:59→20:22)
[2017-01-31] MEDS: Heparin 5000 units/ml inj SUBQ SCH (07:59)
--- NOTE | 2017-01-31 08:11 | Pre-Procedure Note/Attestation ---
Pre-Procedure Note/Attestation Complete Prior to Procedure Planned Procedure: bilateral Procedure Narrative: Bilateral thigh wound closures Indications for Procedure Pre-Operative Diagnosis: Bilateral open thigh wounds Attestation I attest that I discussed the nature of the procedure; its benefits; risks and complications; and alternatives (and the risks and benefits of such alternatives ), prior to the procedure, with the patient (or the patient's legal labor union business representative). I attest that, if there was a reasonable possibility of needing a blood transfusion, the patient (or the patient's legal labor union business representative) was given the [facility] standardized written summary, pursuant to the [place]a Cheryl Blood Safety Act ([place] Health and Safety Code # 1645, as amended). I attest that I re-evaluated the patient just prior to the surgery and that there has been no change in the patient's H&P, except as documented below: DYLON HILARIO Jan 31, 2017 08:11
--- NOTE | 2017-01-31 08:12 | Operative Note - PDOC ---
Operative Note Operative Note Pre-op Diagnosis: Bilateral open thigh wounds Procedure: Flap readvancement for closure of bilateral thigh wounds Post-op Diagnosis: Same Surgeon: Sameer Core Winding Operator: Patricia Anesthesia: general Specimen: yes Complications: none Condition: stable Estimated Blood Loss: volume - 100 Drains: ANGY Implant(s) used?: No DYLON HILARIO Jan 31, 2017 08:12
[2017-01-31] MEDS ORDERED: Zolpidem 5mg tab ORAL PRN (08:15)
[2017-01-31] MEDS ORDERED: PCA HYDROmorphone 1mg/ml 30 ML IV PRN (08:15)
[2017-01-31] MEDS ORDERED: DiphenhydrAMINE 50mg/ml Inj IVP PRN (08:15)
[2017-01-31] MEDS ORDERED: Rate Change PCA 1 Each MISC PRN (08:15)
[2017-01-31 09:11] LABS: BASOPHILS % (AUTO) 0.6 % (0.0-2.0); EOSINOPHILS % (AUTO) 3.6 % (0.0-3.0); MEAN CORPUSCULAR HGB CONC 32.1 G/DL (32.0-36.0); MEAN CORPUSCULAR VOLUME 84 FL (80-99); MEAN PLATELET VOLUME 5.6 FL (6.5-10.1); MONOCYTES % (AUTO) 9.5 % (1.0-10.0); NEUTROPHILS % (AUTO) 71.3 % (45.0-75.0); PLATELET COUNT 310 K/UL (150-450); RED CELL DISTRIBUTION WIDTH 13.3 % (11.6-14.8); WHITE BLOOD COUNT 6.2 K/UL (4.8-10.8)
[2017-01-31] MEDS ORDERED: Tubing IV Secondary IV ONE (09:35)
[2017-01-31] MEDS ORDERED: NS 275ml ONE (09:35)
[2017-01-31] MEDS ORDERED: Sterile Water Irrig 1000ml IRRIG ONE (09:58)
[2017-01-31] MEDS ORDERED: Glycopyrrolate 0.2mg/ml 1ml Vial ONE (09:58)
[2017-01-31] MEDS ORDERED: Propofol 10mg/ml 20ml IV ONE (09:58)
[2017-01-31] MEDS ORDERED: NS Irrig 1000ml ONE (09:58)
[2017-01-31] MEDS ORDERED: fentaNYL 100 mcg/2 mL IV ONE (09:58)
[2017-01-31] MEDS ORDERED: Neostigmine 1mg/ml 10ml Inj ONE (09:58)
[2017-01-31] MEDS ORDERED: Zemuron 50mg/5ml Inj IV ONE (09:58)
[2017-01-31] MEDS ORDERED: Midazolam 2mg/2ml Inj ONE (09:58)
[2017-01-31] MEDS ORDERED: Succinylcholine 20mg/ml 10ml vial ONE (09:58)
[2017-01-31] MEDS: Vancomycin 1250mg in D5W 275ml IVPB SCH ×2 (10:00→21:44)
[2017-01-31 10:53] LABS: ABG PCO2 29.7 mmHg (35.0-45.0)
[2017-01-31 10:54] LABS: ABG ALLEN TEST POSITIVE; ABG BASE EXCESS -1.6
--- NOTE | 2017-01-31 11:54 | Anethesia Preoperative Eval ---
Anesthesia Pre-op PMH/ROS General Date of Evaluation: Jan 31, 2017 Time of Evaluation: 08:20 Anesthesiologist: Ti ASA Score: ASA 2 Mallampati Score Class I : Soft palate, uvula, fauces, pillars visible Class II: Soft palate, uvula, fauces visible Class III: Soft palate, base of uvula visible Class IV: Only hard plate visible Mallampati Classification: Class II Surgeon: Sameer Diagnosis: Recurrent HS Surgical Procedure: Bilateral groin wounds closure Anesthesia History: none Family History: no anesthesia problems Allergies: Coded Allergies: No Known Allergies (Unverified , 01/22/17) Medications: see eMAR Past Medical History Cardiovascular: Denies: CAD, HTN, DC, arrhythmia, other, valve dz Pulmonary: Reports: asthma - mild, Denies: COPD, LORI, other Gastrointestinal/Genitourinary: Reports: GERD, Denies: CRI, ESRD, other Neurologic/Psychiatric: Reports: depression/anxiety, Denies: CVA, TIA, dementia, other Endocrine: Denies: DM, hypothyroidism, other, steroids HEENT: Denies: [place] (L), [place] (R), cataract (L), cataract (R), glaucoma, other Hematology/Immune: Reports: DVT - h/o to PE, anemia, Denies: bleeding disorder, other Musculoskeletal/Integumentary: Denies: DDD, DJD, OA, RA, edema, other Other: obesity PMH Narrative: as above PSxH Narrative: see chart Anesthesia Pre-op Phys. Exam Physician Exam Last Vital Signs Date Time Temp Pulse Resp B/P Pulse Ox O2 Delivery O2 Flow Rate FiO2 01/31/17 11:10 97.8 91 16 131/79 97 Room Air 01/31/17 10:20 6.0 01/28/17 19:25 21 Constitutional: NAD Neurologic: CN 2-12 intact Cardiovascular: RRR, no M/R/G Respiratory: CTA Gastrointestinal: other - obesity Airway Exam Mallampati Score: Class II MO: full Neck: flexible Teeth: intact Dentures: no lower, no upper Anesthesia Pre-op A/P Labs Hematology Test 01/31/17 09:00 White Blood Count 6.2 K/UL (4.8-10.8) Red Blood Count 3.00 M/UL (4.20-5.40) L Hemoglobin 8.1 G/DL (12.0-16.0) L Hematocrit 25.2 % (37.0-47.0) L Mean Corpuscular Volume 84 FL (80-99) Mean Corpuscular Hemoglobin 27.0 PG (27.0-31.0) Mean Corpuscular Hemoglobin Concent 32.1 G/DL (32.0-36.0) Red Cell Distribution Width 13.3 % (11.6-14.8) Platelet Count 310 K/UL (150-450) Mean Platelet Volume 5.6 FL (6.5-10.1) L Neutrophils (%) (Auto) 71.3 % (45.0-75.0) Lymphocytes (%) (Auto) 15.0 % (20.0-45.0) L Monocytes (%) (Auto) 9.5 % (1.0-10.0) Eosinophils (%) (Auto) 3.6 % (0.0-3.0) H Basophils (%) (Auto) 0.6 % (0.0-2.0) Risk Assessment & Plan Assessment: ASA 2 Plan: GA with ETT Status Change Before Surgery: No Pre-Antibiotics Drug: as scheduled Given Within 1 Hr of Incision: Yes Time Given: 09:20 BRANDI COVARRUBIAS M.D. Jan 31, 2017 11:54
--- NOTE | 2017-01-31 12:04 | Immediate Post-Op Evaluation ---
Immediate Post-Op Evalulation Immediate Post-Op Evalulation Procedure: Dressing change under anesthesia Date of Evaluation: Jan 31, 2017 Time of Evaluation: 10:10 IV Fluids: 700 Blood Products: albumin 250 cc Estimated Blood Loss: min Urinary Output: 200 Blood Pressure Systolic: 116 Blood Pressure Diastolic: 59 Pulse Rate: 86 Respiratory Rate: 22 O2 Sat by Pulse Oximetry: 99 Temperature (Fahrenheit): 97.6 Pain Score (1-10): 2 Nausea: No Vomiting: No Complications Uneventful I/V induction intubated with 7,0 ETT using [place] vision GlideScope, tube fixed at 22, Po2 96-97 on 50% O2, positioned lithotomy for surgery, after about 5-10 min Po2 dropped to low 90%, back to 100% O2 slight improvement. Situation discussed with surgeon. Considering patients history and high risk for developing and extend of surgical procedure decision made not to proceed at that time. Patient reversed extubated in OR and moved to PACU with supplemental O2. Vitals stable. Patient Status: awake, patent, extubated, none Hydration Status: adequate BRANDI COVARRUBIAS M.D. Jan 31, 2017 12:04
[2017-01-31] MEDS ORDERED: Heparin 5000 units/ml inj SUBQ SCH (12:45)
--- NOTE | 2017-01-31 13:46 | Diagnostic Imaging Report ---
Indication: Cough Technique: One view of the chest Comparison: 01/22/2017 Findings: Lungs and pleural spaces are clear. Heart is borderline enlarged. No significant interim change Impression: No acute process
--- NOTE | 2017-01-31 14:12 | Consultation ---
History of Present Illness General Date patient seen: Jan 31, 2017 Chief Complaint: General Complaint Referring physician: Dr. Montes De Oca Reason for Consultation: Dyspnea Present Illness HPI 42 year old with hx of Asthma, dvt and PE in 2004 developed suddenly hypoxemia as measured by pulse oximeter. Pt didn't become short of breath. She didn't have tachycardia, didn't have chest pain. A CXR and CT angio ordered, which are pending. Allergies: Coded Allergies: No Known Allergies (Unverified , 01/22/17) Medication History Scheduled Ibuprofen* (Motrin Ib*), 600 MG ORAL THREE TIMES A DAY, (Reported) Patient History Healthcare decision maker pt alert and oriented Resuscitation status Full Code Advanced Directive on File Past Medical/Surgical History Past Medical/Surgical History: (1) Asthma Review of Systems All Other Systems: negative except mentioned in HPI Physical Exam General Appearance: WD/WN Lines, tubes and drains: peripheral HEENT: normocephalic, atraumatic Neck: non-tender, normal alignment Respiratory/Chest: chest wall non-tender, lungs clear Cardiovascular/Chest: normal peripheral pulses, normal rate Abdomen: normal bowel sounds, no organomegaly Genitourinary/Rectal: normal genital exam Last 24 Hour Vital Signs Date Time Temp Pulse Resp B/P Pulse Ox O2 Delivery O2 Flow Rate FiO2 01/31/17 12:04 86 22 99 01/31/17 11:10 97.8 91 16 131/79 97 Room Air 01/31/17 11:00 88 14 123/78 96 Room Air 01/31/17 10:50 92 15 126/72 100 Room Air 01/31/17 10:35 95 16 129/82 100 Room Air 01/31/17 10:20 91 14 132/79 100 Simple Mask 6.0 01/31/17 10:10 85 15 125/73 100 Simple Mask 6.0 01/31/17 10:05 88 14 122/76 100 Simple Mask 6.0 01/31/17 10:00 97.4 90 18 118/74 100 Simple Mask 6.0 01/31/17 07:01 Room Air 01/31/17 07:01 94 Room Air 01/31/17 04:15 98.1 100 18 140/80 93 Room Air 01/31/17 04:00 18 01/31/17 00:05 98.2 95 19 124/73 92 Room Air 01/31/17 00:00 18 01/30/17 20:07 98.6 112 20 143/82 92 Room Air 01/30/17 20:00 18 01/30/17 19:45 Room Air 01/30/17 19:45 95 Room Air 01/30/17 16:49 97.3 60 18 141/85 96 Room Air 01/30/17 16:30 18 01/30/17 14:48 99.3 01/30/17 14:19 18 01/30/17 14:18 18 Intake and Output 01/30/17 01/31/17 19:00 07:00 Intake Total 775 ml Output Total 218 ml 1200 ml Balance 557 ml -1200 ml Intake Oral 500 ml IV Total 275 ml Output Urine Total 200 ml 1200 ml Drainage Total 18 ml Laboratory Tests Test 01/31/17 09:00 01/31/17 10:39 White Blood Count 6.2 K/UL (4.8-10.8) Red Blood Count 3.00 M/UL (4.20-5.40) L Hemoglobin 8.1 G/DL (12.0-16.0) L Hematocrit 25.2 % (37.0-47.0) L Mean Corpuscular Volume 84 FL (80-99) Mean Corpuscular Hemoglobin 27.0 PG (27.0-31.0) Mean Corpuscular Hemoglobin Concent 32.1 G/DL (32.0-36.0) Red Cell Distribution Width 13.3 % (11.6-14.8) Platelet Count 310 K/UL (150-450) Mean Platelet Volume 5.6 FL (6.5-10.1) L Neutrophils (%) (Auto) 71.3 % (45.0-75.0) Lymphocytes (%) (Auto) 15.0 % (20.0-45.0) L Monocytes (%) (Auto) 9.5 % (1.0-10.0) Eosinophils (%) (Auto) 3.6 % (0.0-3.0) H Basophils (%) (Auto) 0.6 % (0.0-2.0) Arterial Blood pH 7.478 (7.350-7.450) Arterial Blood Partial Pressure CO2 29.7 mmHg (35.0-45.0) L Arterial Blood Partial Pressure O2 109.5 mmHg (75.0-100.0) H Arterial Blood HCO3 21.5 mmol/L (22.0-26.0) L Arterial Blood Oxygen Saturation 97.6 % (92.0-98.0) Arterial Blood Base Excess -1.6 [place] Test Positive Height (Feet): 5 Height (Inches): 3.00 Weight (Pounds): 206 Medications Current Medications Medications (Trade) Dose Ordered Sig/Grayson Route PRN Reason Start Time Stop Time Status Last Admin Dose Admin Acetaminophen (Tylenol) 650 mg Q4H PRN ORAL FEVER 01/31/17 08:15 03/02/17 08:14 Al Hydroxide/Mg Hydroxide 15 ml 15 ml Q6H PRN ORAL DYSPEPSIA 01/28/17 10:00 02/27/17 09:59 Bisacodyl (Dulcolax) 10 mg HSPRN PRN RECTAL Constipation THIRD LINE 01/22/17 17:15 02/21/17 17:14 Cefepime HCl/ Sodium Chloride (Maxipime/Sodium Chloride) 55 ml @ 110 mls/hr Q12HR@0600,1800 IVPB 01/26/17 16:00 02/02/17 15:59 01/31/17 05:54 Dextrose (Dextrose 50%) STAT PRN IV Hypoglycemia 01/22/17 17:30 02/21/17 17:29 Diphenhydramine HCl 12.5 mg 12.5 mg Q6H PRN IVP Itching/Pruritis 01/31/17 08:15 03/02/17 08:14 Docusate Sodium (Colace) 100 mg EVERY 12 HOURS ORAL 01/22/17 21:00 02/21/17 20:59 01/30/17 20:21 Fluconazole (Diflucan) 200 mg QPM ORAL 01/29/17 16:30 02/03/17 16:29 01/30/17 16:55 Heparin Sodium (Porcine) (Heparin 5000 units/ml) 5,000 units TID SUBQ 01/31/17 12:45 03/02/17 12:44 01/31/17 12:53 Hydromorphone HCl (FLEET MANAGER/DISPATCH Dilaudid) 30 ml @ 0 mls/hr Q24H PRN IV For Pain 01/31/17 08:15 02/02/17 08:14 Insulin Aspart (NovoLOG) BEFORE MEALS AND HS SUBQ 01/22/17 21:00 02/21/17 20:59 01/31/17 12:35 Insulin Aspart (NovoLOG) 7 units NOVOTIAC SUBQ 01/24/17 11:50 02/23/17 11:49 01/31/17 12:34 Insulin Detemir (Levemir) 8 units BEDTIME SUBQ 01/26/17 21:00 02/25/17 20:59 01/30/17 20:23 Ketorolac Tromethamine (Toradol 30mg) 30 mg Q6H PRN IV Breakthrough Pain 01/26/17 17:30 01/31/17 17:29 01/30/17 22:17 Magnesium Hydroxide (Mom) 30 ml HSPRN PRN ORAL Constipation SECOND LINE 01/22/17 17:15 02/21/17 17:14 Miscellaneous Medication (FLEET MANAGER/DISPATCH Rate Change) 1 ea DAILYPRN PRN MISC rate change 01/31/17 08:15 02/02/17 08:14 Miscellaneous Medication (FLEET MANAGER/DISPATCH shift volume) 1 ea Q12HR@0700,1900 MISC 01/31/17 19:00 02/02/17 18:59 Ondansetron HCl (Zofran) 4 mg Q6H PRN IVP Nausea & Vomiting 01/31/17 08:15 03/02/17 08:14 Polyethylene Glycol (Miralax) 17 gm HSPRN PRN ORAL Constipation FIRST LINE 01/22/17 17:15 02/21/17 17:14 Vancomycin HCl 1 ea 1 ea DAILY PRN MISC Per rx protocol 01/26/17 13:00 02/25/17 12:59 Vancomycin HCl/ Dextrose (Vancomycin/D5W) 275 ml @ 183.708 mls/hr Q12H IVPB 01/29/17 10:00 02/03/17 09:59 01/30/17 22:10 Zolpidem Tartrate (Ambien) 5 mg HSPRN PRN ORAL Insomnia 01/31/17 08:15 03/02/17 08:14 Assessment/Plan Problem List: (1) Hypoxemia ICD Codes: R09.02 - Hypoxemia SNOMED: 865506827 (2) Asthma ICD Codes: J45.909 - Unspecified asthma, uncomplicated SNOMED: 176467898 Assessment/Plan there is no other findings that can explains the sudden drop in saturation. The only reason could be mechanical error. Pts oximeter is around 97% now. She is asymptomatic. I would just get a cxr for now. continue respiratory treatment prn. Pt can proceed with the planned surgery. SANTOS GUTIERREZ Jan 31, 2017 14:12
--- NOTE | 2017-01-31 14:22 | General Progress Note ---
Assessment/Plan Problem List: (1) Groin abscess Assessment & Plan: s/p I+D f/u blood cx Cont IV abx Pain control Supp care SCDs Apprec Plastic Surgery input A total of 31mins of time was spent on additional time with care coordination and counseling in addition to the face to face time for this visit ICD Codes: L02.214 - Cutaneous abscess of groin SNOMED: 59018643 (2) Asthma Assessment & Plan: well controlled Cont alb nebs prn ICD Codes: J45.909 - Unspecified asthma, uncomplicated SNOMED: 263842756 (3) Hyperglycemia Assessment & Plan: Steroid induced, now finished taper Insulin sliding scale Start levemir qhs, cont novolog with meals ICD Codes: R73.9 - Hyperglycemia, unspecified SNOMED: 71849286 (4) Hypoxemia Assessment & Plan: Given pt has remote history of PE in the past Cgheck EKG, CXR, duplex BLE to r/o DVT, CT chest angio to r/o PE Will need PICC line for IV access Cont subq heparin tid for now ICD Codes: R09.02 - Hypoxemia SNOMED: 273609155 Subjective Date patient seen: Jan 31, 2017 Time patient seen: 14:19 ROS Limited/Unobtainable: No Allergies: Coded Allergies: No Known Allergies (Unverified , 01/22/17) Subjective Pt had hypoxia in preop area, surgery cancelled. No chest pain or dyspnea, no tachycardia. Currently in room resting comfortably Objective Last 24 Hour Vital Signs Date Time Temp Pulse Resp B/P Pulse Ox O2 Delivery O2 Flow Rate FiO2 01/31/17 12:04 86 22 99 01/31/17 11:10 97.8 91 16 131/79 97 Room Air 01/31/17 11:00 88 14 123/78 96 Room Air 01/31/17 10:50 92 15 126/72 100 Room Air 01/31/17 10:35 95 16 129/82 100 Room Air 01/31/17 10:20 91 14 132/79 100 Simple Mask 6.0 01/31/17 10:10 85 15 125/73 100 Simple Mask 6.0 01/31/17 10:05 88 14 122/76 100 Simple Mask 6.0 01/31/17 10:00 97.4 90 18 118/74 100 Simple Mask 6.0 01/31/17 07:01 Room Air 01/31/17 07:01 94 Room Air 01/31/17 04:15 98.1 100 18 140/80 93 Room Air 01/31/17 04:00 18 01/31/17 00:05 98.2 95 19 124/73 92 Room Air 01/31/17 00:00 18 01/30/17 20:07 98.6 112 20 143/82 92 Room Air 01/30/17 20:00 18 01/30/17 19:45 Room Air 01/30/17 19:45 95 Room Air 01/30/17 16:49 97.3 60 18 141/85 96 Room Air 01/30/17 16:30 18 01/30/17 14:48 99.3 Intake and Output 01/30/17 01/31/17 19:00 07:00 Intake Total 775 ml Output Total 218 ml 1200 ml Balance 557 ml -1200 ml Intake Oral 500 ml IV Total 275 ml Output Urine Total 200 ml 1200 ml Drainage Total 18 ml Laboratory Tests 01/31/17 09:00: White Blood Count 6.2, Red Blood Count 3.00L, Hemoglobin 8.1L, Hematocrit 25.2L , Mean Corpuscular Volume 84, Mean Corpuscular Hemoglobin 27.0, Mean Corpuscular Hemoglobin Concent 32.1, Red Cell Distribution Width 13.3, Platelet Count 310, Mean Platelet Volume 5.6L, Neutrophils (%) (Auto) 71.3, Lymphocytes ( %) (Auto) 15.0L, Monocytes (%) (Auto) 9.5, Eosinophils (%) (Auto) 3.6H, Basophils (%) (Auto) 0.6 01/31/17 10:39: Arterial Blood pH 7.478H, Arterial Blood Partial Pressure CO2 29.7L, Arterial Blood Partial Pressure O2 109.5H, Arterial Blood HCO3 21.5L, Arterial Blood Oxygen Saturation 97.6, Arterial Blood Base Excess -1.6, Austin Test Positive Height (Feet): 5 Height (Inches): 3.00 Weight (Pounds): 206 Objective General: alert, cooperative, no distress, appears stated age Head: normocephalic, without obvious abnormality, atraumatic Eyes: conjunctivae/corneas clear. PERRL, EOM's intact Throat: lips, mucosa, and tongue normal. MMM Neck: supple, symmetrical, trachea midline, and no JVD Lungs: clear to auscultation bilaterally Heart: regular rate and rhythm, S1, S2 normal, no murmur, click, rub or gallop Abdomen: soft, non-tender, non-distended, bowel sounds normal; no masses or organomegaly Extremities: extremities normal, atraumatic, no cyanosis or edema Pulses: 2+ and symmetric Skin: skin color, texture, turgor normal; no rashes or lesions Neurologic: grossly normal, no focal deficits CHER NARAYAN Jan 31, 2017 14:22
[2017-01-31] MEDS ORDERED: Sodium Bicarbonate 8.4% 50ml Inj IV ONE (15:00)
[2017-01-31] MEDS ORDERED: Lidocaine 1% Plain 30 ml INJ ONE (15:00)
[2017-01-31] MEDS ORDERED: Heparin 2000 units/Ns 1000ml IV ONE (15:00)
--- NOTE | 2017-01-31 16:35 | Diagnostic Imaging Report ---
Indications: Needs long-term IV access Technique: Ultrasound confirms patent compressible right basilic vein. Total sterile technique, including sterile probe cover and sterile gel, hat, mask,, sterile gown, large sterile drape, and preparation with 2% chlorhexidine utilized. Local anesthesia with 1% lidocaine. Under real-time ultrasound guidance, puncture basilic vein using 21-gauge needle, documented and archived, passage 0.018 guidewire under direct fluoroscopy, which was used to determine appropriate catheter length, exchange for 5 Bangladeshi peel-away sheath. 5 [place] Bard dual-lumen power PICC cut to one cm. It was inserted through the peel-away sheath. Peel-away sheath and guidewire removed. Catheter fixed to the skin. Both catheter ports aspirated and flushed. Patient tolerated procedure well, without immediate complication. Digital radiograph documents satisfactory catheter tip position, at the cavoatrial junction. Total fluoroscopy time 0.3 minutes. Total dose area product 20 dGycm2 Impression: Successful placement of right arm PICC under sonographic and fluoroscopic guidance, as described above.
--- NOTE | 2017-01-31 17:18 | Diagnostic Imaging Report ---
ndication: Chest pain, shortness of breath Technique: IV administration nonionic contrast. Spiral acquisitions obtained from the lung bases to the lung apices. Multiplanar and 3-D reconstructions were generated. Total dose length product 881 mGycm. CTDIvol(s) 12, 12, 27 mGy. Dose reduction achieved using automated exposure control Comparison: None Findings: There are bilateral pulmonary emboli demonstrated. On the right, filling defects are seen in the origins of several of the lower lobe segmental arteries. On the left, embolus straddling the distal main pulmonary artery, and extending into the origins of the lobar pulmonary arteries, extending as far as the basilar segmental artery origins inferiorly. The pulmonary arteries are normal in caliber. There is no evidence of right ventricular dilatation. The heart size is upper limits of normal. No thoracic aortic aneurysm or dissection. There are trace bilateral pleural effusions. Atelectasis and possibly some focal consolidation is seen within the posterior costophrenic sulci bilaterally. Linear atelectatic changes are also seen scattered throughout both lower lobes. No congestion. There is trace pericardial fluid anteriorly. No mediastinal or hilar mass or adenopathy. The included portions of the thyroid are unremarkable. No axillary or chest wall mass or adenopathy. There is suggestion of slight skin thickening of the left breast. Limited views of the upper abdomen demonstrate massive splenomegaly,, with chest visualized portions of the spleen measuring at least 18 cm diameter. Impression: Positive for acute bilateral pulmonary emboli, as described. No evidence of right heart strain Bilateral basilar atelectasis and possible patchy consolidation. Scattered atelectatic changes throughout both lower lobes Small bilateral pleural effusions Trace pericardial effusion Massive splenomegaly Equivocal slight skin thickening on the left breast. Correlate clinical findings Critical value findings discussed by phone with Dr. Montes De Oca at the time of interpretation The CT scanner at [facility] is accredited by the [employer] and the scans are performed using protocols designed to limit radiation exposure to as low as reasonably achievable to attain images of sufficient resolution adequate for diagnostic evaluation.
[2017-01-31] MEDS: Fluconazole 100mg tab ORAL SCH (17:24)
[2017-01-31] MEDS ORDERED: PCA shift volume MISC SCH (19:00)
--- NOTE | 2017-01-31 20:18 | Consultation ---
DATE OF CONSULTATION: 01/31/2017 HISTORY: This patient was supposed to undergo an operation today with definitive closure of her bilateral groin and thigh wounds. Preoperatively, she was stable and in no distress with no shortness of breath and ventilating well. However, after induction of anesthesia when she was placed under, it was noted that on the pulse oximeter her oxygenation was in the low to mid 90s despite being on high oxygen. Given the fact that this was going to be a two to three operation with some question of hypoxia. I did not feel that for elective case, it would be appropriate to proceed without knowing exactly what's going on. In addition, the patient has a remote history of a previous DVT about 10 years ago for which she was treated with Coumadin and despite being on heparin 5000 units subcutaneous t.i.d. as well as well as having had a preoperative ultrasound of her lower extremities, which revealed no blood clots. I still feel that the possibility of there being a DVT or clot to the lungs could not be excluded as possible explanation for the patient's hypoxia and given this whole clinical picture, I feel that it would be appropriate to cancel this case for now and do a full workup for PE including chest x-ray, EKG as well as a chest CT to definitively rule it out. If the patient does have evidence of PE, then clearly she needs to be on the anticoagulation and if she does not, then we will proceed with potentially doing the operation within the next several days. I discussed this in detail with the patient's and he understands and will be discussing this with the patient when she is more awake after the anesthetic is worn off. Kandice Estrella M.D. DR: AKHIL JOB#: [id number] CC:
[2017-01-31] MEDS: Enoxaparin Sodium 300mg/3ml vial SUBQ SCH (20:22)
[2017-01-31] MEDS: Levemir Flexpen SUBQ SCH (20:23)
[2017-01-31] MEDS ORDERED: Ketorolac 30mg Inj IV PRN (21:15)
[2017-02-01 04:00] VITALS: BP 125/69
[2017-02-01] MEDS: Cefepime HCl 1 GM in NS 55 ML IVPB SCH ×2 (05:27→19:13)
[2017-02-01] MEDS: NovoLOG Insulin Flexpen SUBQ SCH ×7 (05:28→22:37)
[2017-02-01 08:00] VITALS: BP 138/73
--- NOTE | 2017-02-01 08:01 | Pulmonology Progress Note ---
Assessment/Plan Assessment/Plan ASSESSMENT bilateral pulmonary emboli asthma hypoxemia anemia hydradenitis suppurative Diabetes UTI/Nel s/p 01/23 Excision of bilateral groin masses with flap elevation s/p 01/25 Excision of posterior thigh mass with flap elevation s/p 01/28 Flap readvancement closure of right buttock wound- PLAN OF CARE MS floor O2 HHN prn started on Lovenox 01/31 ( CTA + bilateral PE, hx of PE/DVT in the past) add Coumadin per pharmacy today to bridge to therapeutic level CXR negative Venous Duplex BLE negative may need workup for hypercoagulability as outpt abx, ID follows, blood cx negative, urine cx + Nel Krusei BS management with long and short acting insulin, SS of insulin prn, check HgA1c pain management SCD wound care surgery cancelled plastic surgery follows give additional KCL monitor HH, s/p blood transfusion, goal to keep above 7 case discussed and evaluated by supervising physician Subjective Allergies: Coded Allergies: No Known Allergies (Unverified , 01/22/17) Subjective afebrile, no leukocytosis on RA, sat stable started on Lovenox 01/31 denies chest pain, SOB, cough, palpitations Objective Last 24 Hour Vital Signs Date Time Temp Pulse Resp B/P Pulse Ox O2 Delivery O2 Flow Rate FiO2 02/01/17 04:00 98.2 77 19 125/69 95 Room Air 01/31/17 20:00 98.2 91 20 136/82 99 Room Air 01/31/17 16:00 98.1 85 19 137/70 100 Nasal Cannula 3.0 01/31/17 13:30 97.0 100 18 127/73 99 Nasal Cannula 2.0 01/31/17 13:10 97.0 97 18 128/69 95 Nasal Cannula 2.0 01/31/17 12:04 86 22 99 01/31/17 11:10 97.8 91 16 131/79 97 Room Air 01/31/17 11:00 88 14 123/78 96 Room Air 01/31/17 10:50 92 15 126/72 100 Room Air 01/31/17 10:35 95 16 129/82 100 Room Air 01/31/17 10:20 91 14 132/79 100 Simple Mask 6.0 01/31/17 10:10 85 15 125/73 100 Simple Mask 6.0 01/31/17 10:05 88 14 122/76 100 Simple Mask 6.0 01/31/17 10:00 97.4 90 18 118/74 100 Simple Mask 6.0 Intake and Output 01/31/17 02/01/17 19:00 07:00 Intake Total 850 ml 420 ml Output Total 2136 ml 802 ml Balance -1286 ml -382 ml Intake Oral 450 ml 420 ml IV Total 150 ml Blood Product 250 ml Output Urine Total 2100 ml 800 ml Drainage Total 36 ml 2 ml Estimated Blood Loss 0 ml # Voids 1 General Appearance: no acute distress, other - A/A/O x 3 obese female in NAD HEENT: normocephalic, atraumatic, anicteric, mucous membranes moist, PERRL Respiratory/Chest: chest wall non-tender, lungs clear, no respiratory distress , no accessory muscle use Cardiovascular: normal peripheral pulses, normal rate, regular rhythm Abdomen: normal bowel sounds, soft, non tender - obese Extremities: no edema, pedal pulses normal Skin: other - BLE with Johann wrap till thigh area , dressigns C/D/I Neurologic/Psychiatric: alert, oriented x 3, responsive Laboratory Tests 01/31/17 09:00: White Blood Count 6.2, Red Blood Count 3.00L, Hemoglobin 8.1L, Hematocrit 25.2L , Mean Corpuscular Volume 84, Mean Corpuscular Hemoglobin 27.0, Mean Corpuscular Hemoglobin Concent 32.1, Red Cell Distribution Width 13.3, Platelet Count 310, Mean Platelet Volume 5.6L, Neutrophils (%) (Auto) 71.3, Lymphocytes ( %) (Auto) 15.0L, Monocytes (%) (Auto) 9.5, Eosinophils (%) (Auto) 3.6H, Basophils (%) (Auto) 0.6 01/31/17 10:39: Arterial Blood pH 7.478H, Arterial Blood Partial Pressure CO2 29.7L, Arterial Blood Partial Pressure O2 109.5H, Arterial Blood HCO3 21.5L, Arterial Blood Oxygen Saturation 97.6, Arterial Blood Base Excess -1.6, Austin Test Positive Current Medications Medications (Trade) Dose Ordered Sig/Grayson Route PRN Reason Start Time Stop Time Status Last Admin Dose Admin Acetaminophen (Tylenol) 650 mg Q4H PRN ORAL FEVER 01/31/17 08:15 03/02/17 08:14 Al Hydroxide/Mg Hydroxide 15 ml 15 ml Q6H PRN ORAL DYSPEPSIA 01/28/17 10:00 02/27/17 09:59 Bisacodyl (Dulcolax) 10 mg HSPRN PRN RECTAL Constipation THIRD LINE 01/22/17 17:15 02/21/17 17:14 Cefepime HCl/ Sodium Chloride (Maxipime/Sodium Chloride) 55 ml @ 110 mls/hr Q12HR@0600,1800 IVPB 01/26/17 16:00 02/02/17 15:59 02/01/17 05:27 Dextrose (Dextrose 50%) STAT PRN IV Hypoglycemia 01/22/17 17:30 02/21/17 17:29 Diphenhydramine HCl (Benadryl) 12.5 mg Q6H PRN IVP Itching/Pruritis 01/31/17 08:15 03/02/17 08:14 Docusate Sodium (Colace) 100 mg EVERY 12 HOURS ORAL 01/22/17 21:00 02/21/17 20:59 01/31/17 20:22 Enoxaparin Sodium (Lovenox) 90 mg EVERY 12 HOURS SUBQ 01/31/17 20:00 03/02/17 19:59 01/31/17 20:22 Fluconazole (Diflucan) 200 mg QPM ORAL 01/29/17 16:30 02/03/17 16:29 01/31/17 17:24 Insulin Aspart (NovoLOG) BEFORE MEALS AND HS SUBQ 01/22/17 21:00 02/21/17 20:59 02/01/17 05:29 Insulin Aspart (NovoLOG) 7 units NOVOTIAC SUBQ 01/24/17 11:50 02/23/17 11:49 02/01/17 05:28 Insulin Detemir (Levemir) 8 units BEDTIME SUBQ 01/26/17 21:00 02/25/17 20:59 01/31/17 20:23 Ketorolac Tromethamine (Toradol 30mg) 30 mg Q6H PRN IV For Pain 01/31/17 21:15 02/05/17 21:14 01/31/17 21:45 Magnesium Hydroxide (Mom) 30 ml HSPRN PRN ORAL Constipation SECOND LINE 4/4/17 17:15 02/21/17 17:14 Ondansetron HCl (Zofran) 4 mg Q6H PRN IVP Nausea & Vomiting 01/31/17 08:15 03/02/17 08:14 Polyethylene Glycol (Miralax) 17 gm HSPRN PRN ORAL Constipation FIRST LINE 01/22/17 17:15 02/21/17 17:14 Vancomycin HCl 1 ea 1 ea DAILY PRN MISC Per rx protocol 01/26/17 13:00 02/25/17 12:59 Vancomycin HCl/ Dextrose (Vancomycin/D5W) 275 ml @ 183.708 mls/hr Q12H IVPB 01/29/17 10:00 02/03/17 09:59 01/31/17 21:44 Zolpidem Tartrate (Ambien) 5 mg HSPRN PRN ORAL Insomnia 01/31/17 08:15 03/02/17 08:14 Tenisha Doe NP (Vanchtein) Feb 01, 2017 08:01
[2017-02-01] MEDS ORDERED: DuoNeb 0.5-3(2.5)mg/3ml neb HHN PRN (08:30)
[2017-02-01 09:17] LABS: OTHERS PATHOLOGIST COMMENT
[2017-02-01] MEDS: Docusate 100mg tablet ORAL SCH ×2 (09:19→22:52)
[2017-02-01] MEDS: Vancomycin 1250mg in D5W 275ml IVPB SCH (09:20)
[2017-02-01] MEDS: Enoxaparin Sodium 300mg/3ml vial SUBQ SCH (09:28)
[2017-02-01 12:00] VITALS: BP 129/71
[2017-02-01 12:57] LABS: INR 1.1 (0.9-1.1); PROTHROMBIN TIME 11.5 SEC (9.30-11.50)
--- NOTE | 2017-02-01 14:30 | Infectious Diseases Prog Note ---
Assessment/Plan Assessment/Plan A) 1) fevers, mild leukocytosis - resolved 2) s/p debridement of bilateral groin infected masses/abscesses/wound infection and right thigh infected mass/abscess/wound infection, s/p closure 3) fungal uti 4) PE, atx, ? pna, clinically not acting line pna 5) hidradenitis suppurativa 6) dvt/pe/coumadin, recent steroids 7) asthma, steroid induced hyperglycemia 8) allergies - negative, fh-negative, mar noted, notes and records reviewed 9) d/w RN P) 1) vancomycin and cefepime 2) day # 4/5 diflucan 3) watch cr on vancomycin, watch temps 4) continue treatment per Dr. Montes De Oca and Dr. Estrella, anti-coagulation 5) orders entered and noted 6) pain mgt per primary, wound care 7) d/w patient 8) d/w Dr. Montes De Oca Subjective Constitutional: Denies: fever HEENT: Denies: congestion Respiratory: Denies: shortness of breath Cardiovascular: Denies: chest pain Gastrointestinal/Abdominal: Denies: diarrhea, nausea, vomiting Genitourinary: Reports: other - + esquivel Neurologic: Denies: headache Psychiatric: Denies: depression Skin: Denies: rash Hematologic: Denies: bleeding Musculoskeletal: Denies: pain Allergies: Coded Allergies: No Known Allergies (Unverified , 01/22/17) Objective Vital Signs Last 24 Hour Vital Signs Date Time Temp Pulse Resp B/P Pulse Ox O2 Delivery O2 Flow Rate FiO2 02/01/17 08:35 95 Room Air 02/01/17 08:35 Room Air 02/01/17 08:00 97.9 88 18 138/73 97 Nasal Cannula 2.0 02/01/17 04:00 98.2 77 19 125/69 95 Room Air 01/31/17 20:00 98.2 91 20 136/82 99 Room Air 01/31/17 16:00 98.1 85 19 137/70 100 Nasal Cannula 3.0 Height (Feet): 5 Height (Inches): 3.00 Weight (Pounds): 206 General Appearance: no acute distress HEENT: normocephalic, atraumatic, anicteric, mucous membranes moist, PERRL, EOMI, pharynx normal, supple, no JVD Respiratory/Chest: lungs clear, normal breath sounds, no respiratory distress, no accessory muscle use Cardiovascular: normal rate, regular rhythm, no gallop/murmur, no JVD Abdomen: normal bowel sounds, soft, non tender, no organomegaly, non distended Genitourinary: other - + esquivel - urine clear Extremities: no cyanosis Skin: no rash 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 No evidence of right heart strain Bilateral basilar atelectasis and possible patchy consolidation. Scattered atelectatic changes throughout both lower lobes Small bilateral pleural effusions Trace pericardial effusion Massive splenomegaly Equivocal slight skin thickening on the left breast. Correlate clinical findings Microbiology Date/Time Source Procedure Growth Status 01/27/17 06:10 Blood Blood Culture - Preliminary NO GROWTH AFTER 4 DAYS Resulted 01/27/17 07:00 Indwelling Cath Urine Culture - Final Nel Krusei Complete Labs Test 01/31/17 09:00 01/31/17 10:39 02/01/17 12:15 White Blood Count 6.2 K/UL (4.8-10.8) Red Blood Count 3.00 M/UL (4.20-5.40) Hemoglobin 8.1 G/DL (12.0-16.0) Hematocrit 25.2 % (37.0-47.0) Mean Corpuscular Volume 84 FL (80-99) Mean Corpuscular Hemoglobin 27.0 PG (27.0-31.0) Mean Corpuscular Hemoglobin Concent 32.1 G/DL (32.0-36.0) Red Cell Distribution Width 13.3 % (11.6-14.8) Platelet Count 310 K/UL (150-450) Mean Platelet Volume 5.6 FL (6.5-10.1) Neutrophils (%) (Auto) 71.3 % (45.0-75.0) Lymphocytes (%) (Auto) 15.0 % (20.0-45.0) Monocytes (%) (Auto) 9.5 % (1.0-10.0) Eosinophils (%) (Auto) 3.6 % (0.0-3.0) Basophils (%) (Auto) 0.6 % (0.0-2.0) Arterial Blood pH 7.478 (7.350-7.450) Arterial Blood Partial Pressure CO2 29.7 mmHg (35.0-45.0) Arterial Blood Partial Pressure O2 109.5 mmHg (75.0-100.0) Arterial Blood HCO3 21.5 mmol/L (22.0-26.0) Arterial Blood Oxygen Saturation 97.6 % (92.0-98.0) Arterial Blood Base Excess -1.6 Austin Test Positive Prothrombin Time 11.5 SEC (9.30-11.50) Prothromb Time International Ratio 1.1 (0.9-1.1) Laboratory Tests Test 02/01/17 12:15 Prothrombin Time 11.5 SEC (9.30-11.50) Prothromb Time International Ratio 1.1 (0.9-1.1) Current Medications Medications (Trade) Dose Ordered Sig/Grayson Route PRN Reason Start Time Stop Time Status Last Admin Dose Admin Acetaminophen (Tylenol) 650 mg Q4H PRN ORAL FEVER 01/31/17 08:15 03/02/17 08:14 Al Hydroxide/Mg Hydroxide 15 ml 15 ml Q6H PRN ORAL DYSPEPSIA 01/28/17 10:00 02/27/17 09:59 Albuterol/ Ipratropium (DuoNeb 0.5-3(2.5)mg/3ml) 3 ml Q4H PRN HHN sob 02/01/17 08:30 02/06/17 08:29 Bisacodyl (Dulcolax) 10 mg HSPRN PRN RECTAL Constipation THIRD LINE 01/22/17 17:15 02/21/17 17:14 Cefepime HCl/ Sodium Chloride (Maxipime/Sodium Chloride) 55 ml @ 110 mls/hr Q12HR@0600,1800 IVPB 01/26/17 16:00 02/02/17 15:59 02/01/17 05:27 Dextrose (Dextrose 50%) STAT PRN IV Hypoglycemia 01/22/17 17:30 02/21/17 17:29 Diphenhydramine HCl (Benadryl) 12.5 mg Q6H PRN IVP Itching/Pruritis 01/31/17 08:15 03/02/17 08:14 Docusate Sodium (Colace) 100 mg EVERY 12 HOURS ORAL 01/22/17 21:00 02/21/17 20:59 02/01/17 09:19 Enoxaparin Sodium (Lovenox) 90 mg EVERY 12 HOURS SUBQ 01/31/17 20:00 03/02/17 19:59 02/01/17 09:28 Fluconazole (Diflucan) 200 mg QPM ORAL 01/29/17 16:30 02/03/17 16:29 01/31/17 17:24 Insulin Aspart (NovoLOG) BEFORE MEALS AND HS SUBQ 01/22/17 21:00 02/21/17 20:59 02/01/17 12:04 Insulin Aspart (NovoLOG) 7 units NOVOTIAC SUBQ 01/24/17 11:50 02/23/17 11:49 02/01/17 12:03 Insulin Detemir (Levemir) 8 units BEDTIME SUBQ 01/26/17 21:00 02/25/17 20:59 01/31/17 20:23 Ketorolac Tromethamine (Toradol 30mg) 30 mg Q6H PRN IV For Pain 01/31/17 21:15 02/05/17 21:14 01/31/17 21:45 Magnesium Hydroxide (Mom) 30 ml HSPRN PRN ORAL Constipation SECOND LINE 01/22/17 17:15 02/21/17 17:14 Ondansetron HCl (Zofran) 4 mg Q6H PRN IVP Nausea & Vomiting 01/31/17 08:15 03/02/17 08:14 Polyethylene Glycol (Miralax) 17 gm HSPRN PRN ORAL Constipation FIRST LINE 01/22/17 17:15 02/21/17 17:14 Vancomycin HCl 1 ea 1 ea DAILY PRN MISC Per rx protocol 01/26/17 13:00 02/25/17 12:59 Vancomycin HCl/ Dextrose (Vancomycin/D5W) 275 ml @ 183.708 mls/hr Q12H IVPB 01/29/17 10:00 02/03/17 09:59 02/01/17 09:20 Warfarin Sodium (Coumadin per pharmacy) 1 ea DAILY PRN MISC Per rx protocol 02/01/17 08:00 03/03/17 07:59 Warfarin Sodium (Coumadin) 7.5 mg COUMADIN ORAL 02/01/17 17:00 02/06/17 16:59 Zolpidem Tartrate (Ambien) 5 mg HSPRN PRN ORAL Insomnia 01/31/17 08:15 03/02/17 08:14 ARTHUR STERLING Feb 01, 2017 14:30
[2017-02-01 16:00] VITALS: BP 140/77
[2017-02-01] MEDS: Fluconazole 100mg tab ORAL SCH (16:47)
[2017-02-01] MEDS ORDERED: Warfarin Sodium 7.5mg ORAL SCH (17:00)
--- NOTE | 2017-02-01 18:28 | General Progress Note ---
Assessment/Plan Problem List: (1) Groin abscess Assessment & Plan: s/p I+D f/u blood cx Cont IV abx Pain control Supp care SCDs Apprec Plastic Surgery input A total of 31mins of time was spent on additional time with care coordination and counseling in addition to the face to face time for this visit ICD Codes: L02.214 - Cutaneous abscess of groin SNOMED: 43264558 (2) Asthma Assessment & Plan: well controlled Cont alb nebs prn ICD Codes: J45.909 - Unspecified asthma, uncomplicated SNOMED: 649918980 (3) Hyperglycemia Assessment & Plan: Steroid induced, now finished taper Insulin sliding scale Start levemir qhs, cont novolog with meals ICD Codes: R73.9 - Hyperglycemia, unspecified SNOMED: 97277614 (4) Hypoxemia Assessment & Plan: cont anticoag for bilateral PE ICD Codes: R09.02 - Hypoxemia SNOMED: 432565110 (5) Bilateral pulmonary embolism Assessment & Plan: Started on Lovenox Can switch to xarelto, and continue upon dc Hemonc consult as outpt for hypercoaguable workup ICD Codes: I26.99 - Other pulmonary embolism without acute cor pulmonale SNOMED: 90974086, 62583960 Assessment/Plan I saw and examined the patient, reviewed the case in detail, reviewed radiology and EKG if applicable, in addition reviewing the laboratory data and microbiology. I agree with the history, physical examination findings, assessment and plan of care as outlined above by the Nurse Practitioner with any additions or modifications noted. Subjective Date patient seen: Feb 01, 2017 Time patient seen: 18:25 ROS Limited/Unobtainable: No Allergies: Coded Allergies: No Known Allergies (Unverified , 01/22/17) Subjective Ct chest showed bilateral PE, started on Lovenox, no chest pain or dyspnea, no fevers/chills. Duplex LE showed R popliteal DVT Objective Last 24 Hour Vital Signs Date Time Temp Pulse Resp B/P Pulse Ox O2 Delivery O2 Flow Rate FiO2 02/01/17 16:00 98.2 19 19 140/77 99 Room Air 02/01/17 12:00 98.1 78 17 129/71 97 Room Air 02/01/17 08:35 95 Room Air 02/01/17 08:35 Room Air 02/01/17 08:00 97.9 88 18 138/73 97 Nasal Cannula 2.0 02/01/17 04:00 98.2 77 19 125/69 95 Room Air 01/31/17 20:00 98.2 91 20 136/82 99 Room Air Intake and Output 01/31/17 02/01/17 19:00 07:00 Intake Total 850 ml 420 ml Output Total 2136 ml 802 ml Balance -1286 ml -382 ml Intake Oral 450 ml 420 ml IV Total 150 ml Blood Product 250 ml Output Urine Total 2100 ml 800 ml Drainage Total 36 ml 2 ml Estimated Blood Loss 0 ml # Voids 1 Laboratory Tests 02/01/17 12:15: Prothrombin Time 11.5, Prothromb Time International Ratio 1.1 Height (Feet): 5 Height (Inches): 3.00 Weight (Pounds): 206 Objective General: alert, cooperative, no distress, appears stated age Head: normocephalic, without obvious abnormality, atraumatic Eyes: conjunctivae/corneas clear. PERRL, EOM's intact Throat: lips, mucosa, and tongue normal. MMM Neck: supple, symmetrical, trachea midline, and no JVD Lungs: clear to auscultation bilaterally Heart: regular rate and rhythm, S1, S2 normal, no murmur, click, rub or gallop Abdomen: soft, non-tender, non-distended, bowel sounds normal; no masses or organomegaly Extremities: extremities normal, atraumatic, no cyanosis or edema Pulses: 2+ and symmetric Skin: skin color, texture, turgor normal; no rashes or lesions Neurologic: grossly normal, no focal deficits CHER NARAYAN Feb 01, 2017 18:28
[2017-02-01 20:00] VITALS: BP 142/84
[2017-02-01] MEDS: Levemir Flexpen SUBQ SCH (22:36)
[2017-02-02] MEDS: Vancomycin 1.25 GM in D5W 275 ML IVPB SCH ×2 (03:23→09:26)
[2017-02-02 04:00] VITALS: BP 136/79
[2017-02-02] MEDS: Cefepime HCl 1 GM in NS 55 ML IVPB SCH (06:46)
[2017-02-02] MEDS: NovoLOG Insulin Flexpen SUBQ SCH ×4 (07:46→12:03)
[2017-02-02 07:56] LABS: BASOPHILS % (AUTO) 0.9 % (0.0-2.0); EOSINOPHILS % (AUTO) 3.5 % (0.0-3.0); LYMPHOCYTES % (AUTO) 16.4 % (20.0-45.0); MEAN CORPUSCULAR HEMOGLOBIN 27.5 PG (27.0-31.0); MEAN CORPUSCULAR HGB CONC 32.4 G/DL (32.0-36.0); MEAN CORPUSCULAR VOLUME 85 FL (80-99); MEAN PLATELET VOLUME 5.8 FL (6.5-10.1); MONOCYTES % (AUTO) 10.3 % (1.0-10.0); PLATELET COUNT 255 K/UL (150-450); RED BLOOD COUNT 3.25 M/UL (4.20-5.40); WHITE BLOOD COUNT 6.4 K/UL (4.8-10.8)
[2017-02-02 08:00] VITALS: BP 140/76
[2017-02-02 08:09] LABS: HEMOGLOBIN A1C 6.4 % (< 6.0)
[2017-02-02 08:15] LABS: ANION GAP 14 (5-15); CALCIUM 8.3 mg/dL (8.6-10.2); CARBON DIOXIDE 23 mEQ/L (20-30); CHLORIDE 104 mEQ/L (98-107); CREATININE 0.8 mg/dL (0.5-0.9); GLOMERULAR FILTRATION RATE > 60 mL/min (>60); HEMOLYSIS 3; POTASSIUM 3.3 mEQ/L (3.4-4.9); SODIUM 141 mEQ/L (135-145)
[2017-02-02] MEDS ORDERED: Xarelto 10mg tab ORAL SCH (09:00)
[2017-02-02] MEDS: Docusate 100mg tablet ORAL SCH (09:26)
[2017-02-02] MEDS ORDERED: Dakin's 0.5% (Full Strength) 16oz TOPIC SCH (10:00)
[2017-02-02] MEDS ORDERED: Dakin's 0.25% (Half Strength) 16oz TOPIC SCH (10:30)
[2017-02-02] MEDS ORDERED: NORCO 5-325 TA1 EACH ORAL (11:17)
[2017-02-02] MEDS ORDERED: XARELTO10 MG ORAL (11:19)
[2017-02-02] MEDS ORDERED: AUGMENTIN 875-1 EAC1 ORAL (11:20)
[2017-02-02] MEDS ORDERED: DOXYCYCLINE HY100 M7 PO (11:21)
[2017-02-02] MEDS ORDERED: BENADRYL25 MG ORAL (11:22)
--- NOTE | 2017-02-02 11:27 | Pulmonology Progress Note ---
Assessment/Plan Assessment/Plan ASSESSMENT bilateral pulmonary emboli asthma hypoxemia anemia hydradenitis suppurative Diabetes UTI/Nel s/p 01/23 Excision of bilateral groin masses with flap elevation s/p 01/25 Excision of posterior thigh mass with flap elevation s/p 01/28 Flap readvancement closure of right buttock wound- PLAN OF CARE MS floor O2 HHN prn on Xarelto ( CTA + bilateral PE, hx of PE/DVT in the past) heme seen and evaluated CXR negative Venous Duplex BLE negative workup for hypercoagulability as outpt with dr Ceballos abx, ID follows, blood cx negative, urine cx + Nel Krusei BS management with long and short acting insulin, SS of insulin prn, [id number] pain management SCD wound care surgery cancelled plastic surgery follows give additional KCL monitor HH, s/p blood transfusion, goal to keep above 7 dc today with HH for wound care outpt fup with heme and surgery case discussed and evaluated by supervising physician Subjective Allergies: Coded Allergies: No Known Allergies (Unverified , 01/22/17) Subjective afebrile, no leukocytosis on RA, sat stable a/coagulation changed to Xarelto seen and evaluated by ammy last night denies chest pain, SOB, cough, palpitations Objective Last 24 Hour Vital Signs Date Time Temp Pulse Resp B/P Pulse Ox O2 Delivery O2 Flow Rate FiO2 02/02/17 08:00 98.2 77 18 140/76 98 Room Air 02/02/17 04:00 97.7 65 18 136/79 97 Room Air 02/01/17 20:41 97 Room Air 02/01/17 20:41 Room Air 02/01/17 20:00 99.7 86 18 142/84 97 Room Air 02/01/17 16:00 98.2 19 19 140/77 99 Room Air 02/01/17 12:00 98.1 78 17 129/71 97 Room Air Intake and Output 02/01/17 02/02/17 19:00 07:00 Intake Total 450 ml 825 ml Output Total 800 ml 1205 ml Balance -350 ml -380 ml Intake Oral 450 ml 550 ml IV Total 275 ml Output Urine Total 800 ml 1200 ml Drainage Total 5 ml Objective General Appearance: no acute distress, other - A/A/O x 3 obese female in NAD HEENT: normocephalic, atraumatic, anicteric, mucous membranes moist, PERRL Respiratory/Chest: chest wall non-tender, lungs clear, no respiratory distress , no accessory muscle use Cardiovascular: normal peripheral pulses, normal rate, regular rhythm Abdomen: normal bowel sounds, soft, non tender - obese Extremities: no edema, pedal pulses normal Skin: other - BLE with Johann wrap till thigh area , dressings C/D/I Neurologic/Psychiatric: alert, oriented x 3, responsive Laboratory Tests 02/01/17 12:15: Prothrombin Time 11.5, Prothromb Time International Ratio 1.1 02/01/17 22:45: Random Vancomycin Level 13.9 02/02/17 07:00: White Blood Count 6.4, Red Blood Count 3.25L, Hemoglobin 8.9L, Hematocrit 27.6L , Mean Corpuscular Volume 85, Mean Corpuscular Hemoglobin 27.5, Mean Corpuscular Hemoglobin Concent 32.4, Red Cell Distribution Width 13.0, Platelet Count 255, Mean Platelet Volume 5.8L, Neutrophils (%) (Auto) 69.0, Lymphocytes ( %) (Auto) 16.4L, Monocytes (%) (Auto) 10.3H, Eosinophils (%) (Auto) 3.5H, Basophils (%) (Auto) 0.9, Sodium Level 141, Potassium Level 3.3L, Chloride Level 104, Carbon Dioxide Level 23, Anion Gap 14, Blood Urea Nitrogen 8, Creatinine 0.8, Estimat Glomerular Filtration Rate > 60, Glucose Level 194H, Hemoglobin A1c 6.4H, Calcium Level 8.3L, Magnesium Level 2.0 Current Medications Medications (Trade) Dose Ordered Sig/Grayson Route PRN Reason Start Time Stop Time Status Last Admin Dose Admin Acetaminophen (Tylenol) 650 mg Q4H PRN ORAL FEVER 01/31/17 08:15 03/02/17 08:14 Al Hydroxide/Mg Hydroxide (Mylanta) 15 ml Q6H PRN ORAL DYSPEPSIA 01/28/17 10:00 02/27/17 09:59 Albuterol/ Ipratropium 3 ml 3 ml Q4H PRN HHN sob 02/01/17 08:30 02/06/17 08:29 Bisacodyl (Dulcolax) 10 mg HSPRN PRN RECTAL Constipation THIRD LINE 01/22/17 17:15 5/4/17 17:14 Cefepime HCl 1 gm/ Sodium Chloride 55 ml @ 110 mls/hr Q12HR@0600,1800 IVPB 02/01/17 18:00 02/08/17 17:59 02/02/17 06:46 Dextrose (Dextrose 50%) STAT PRN IV Hypoglycemia 01/22/17 17:30 02/21/17 17:29 Diphenhydramine HCl (Benadryl) 12.5 mg Q6H PRN IVP Itching/Pruritis 01/31/17 08:15 03/02/17 08:14 Docusate Sodium (Colace) 100 mg EVERY 12 HOURS ORAL 01/22/17 21:00 02/21/17 20:59 02/02/17 09:26 Fluconazole (Diflucan) 200 mg QPM ORAL 01/29/17 16:30 02/03/17 16:29 02/01/17 16:47 Insulin Aspart (NovoLOG) BEFORE MEALS AND HS SUBQ 01/22/17 21:00 02/21/17 20:59 02/02/17 07:46 Insulin Aspart (NovoLOG) 7 units NOVOTIAC SUBQ 01/24/17 11:50 02/23/17 11:49 02/02/17 07:48 Insulin Detemir (Levemir) 8 units BEDTIME SUBQ 01/26/17 21:00 02/25/17 20:59 02/01/17 22:36 Ketorolac Tromethamine (Toradol 30mg) 30 mg Q6H PRN IV For Pain 01/31/17 21:15 02/05/17 21:14 01/31/17 21:45 Magnesium Hydroxide (Mom) 30 ml HSPRN PRN ORAL Constipation SECOND LINE 01/22/17 17:15 02/21/17 17:14 Ondansetron HCl (Zofran) 4 mg Q6H PRN IVP Nausea & Vomiting 01/31/17 08:15 03/02/17 08:14 Polyethylene Glycol (Miralax) 17 gm HSPRN PRN ORAL Constipation FIRST LINE 01/22/17 17:15 02/21/17 17:14 Rivaroxaban (Xarelto) 15 mg BID ORAL 02/02/17 09:00 03/04/17 08:59 02/02/17 09:26 Sodium Hypochlorite (Dakin's Half Strength) 1 applic DAILY TOPIC 02/02/17 10:30 03/04/17 10:29 Vancomycin HCl (Vanco rx to dose) 1 ea DAILY PRN MISC Per rx protocol 02/01/17 14:30 03/03/17 14:29 Vancomycin HCl/ Dextrose (Vancomycin/D5W) 275 ml @ 183.708 mls/hr Q12H IVPB 02/01/17 22:00 02/06/17 21:59 02/02/17 09:26 Zolpidem Tartrate (Ambien) 5 mg HSPRN PRN ORAL Insomnia 01/31/17 08:15 03/02/17 08:14 Nader (Olive)Tenisha NP Feb 02, 2017 11:27
--- NOTE | 2017-02-02 11:55 | Discharge Summary ---
Discharge Summary Hospital Course Date of Admission Jan 22, 2017 at 14:00 Date of Discharge february 02, 2017 Admitting Diagnosis groin abscess acute bilateral PE Reason for Hospitalization: surgery for groin abscess DEBBY Jimenez is a 42 year old female who was admitted on Jan 22, 2017 at 14: 00 for Superative Anhydradenitis Consultations Plastic Surgery ID Hematology Procedures See Operative reports Hospital Course 42 y/o female with groin abscess, s/p I+D and wound surgery per plastics, placed on IV abx as well. Just prior to her last surgery pt was noted to by mildly hypoxic, and given history of PE >10 years ago, surgery was cancelled and workup was initiated which revealed bilateral acute PE and R popliteal DVT. The pt did have a duplex LE ultrasound preop that was negative for DVT. Hematology was consulted and agreed with lovenox as inpt and transition to xarelto upon discharge. Dr. Ceballos will perform hypercoaguable workup as outpt. Once pain controlled and wounds stable, pt was dced on xarelto , norco, augmentin and doxy for a week per ID recs. Pt will f/u in our office and Dr. Estrella in a week. Discharge Medications Continued Medications: Amoxicillin/Potassium Clav 875-125* (Augmentin 875-125 Tablet*) 1 Each Tablet 1 TAB ORAL TWICE A DAY, #14 TAB Diphenhydramine Hcl* (Benadryl*) 25 Mg Capsule 25 MG ORAL Q6H PRN for Itching, CAP Doxycycline Hyclate (Doxycycline Hyclate) 100 Mg Tablet.dr 100 MG PO BID, TAB Hydrocodone Bit/Acetaminophen 5-325* ([place] 5-325*) 1 Each Tablet 1 TAB ORAL Q4H PRN for For Pain, #20 TAB 0 Refills Rivaroxaban (Xarelto*) 10 Mg Tablet 15 MG ORAL BID, #30 TAB 0 Refills Discontinued Medications: Ibuprofen* (Motrin Ib*) 200 Mg Tablet 600 MG ORAL THREE TIMES A DAY, #30 TAB 0 Refills Discharge Condition Upon Discharge: stable Discharge Disposition Patient was discharged to Home with Home Health(06) Discharge Diagnoses: (1) Bilateral pulmonary embolism (2) Asthma (3) Groin abscess (4) Hyperglycemia CHER NARAYAN Feb 02, 2017 11:55
--- NOTE | 2017-02-04 09:38 | History and Physical Report ---
DATE OF ADMISSION: 01/22/2017 HEMATOLOGY/ONCOLOGY CONSULTATION REFERRING PHYSICIANS: Ivonne Montes De Oca M.D. REASON FOR CONSULTATION: DVT, pulmonary embolism as well as splenomegaly. HISTORY OF PRESENT ILLNESS: The patient is a thin, pleasant 42-year-old female with significant history of extensive hydradenitis. The patient is status post bilateral axillary surgery in 2004, which was complicated with lower extremity DVT and bilateral pulmonary embolism requiring IV heparin, ICU visit at the time at [facility] while subsequent six months of therapy with Coumadin. The patient subsequently was off anticoagulation. The patient's course of hydradenitis has been significantly complicated with significant multiple areas of observation as well as abscess formation and tracking into her skin. The patient has been evaluated by her surgeon and has been admitted to the hospital and undergone multiple lower extremity/thigh area surgical procedures to treat her hydradenitis. The patient did have DVT of left lower extremity on 01/22/2017 deep venous thrombosis bilaterally. No evidence of thrombus within the femoral, popliteal, or tibial segments. The patient's course was complicated on 01/31/2017 with concerns of possible pulmonary embolism, therefore the patient did undergo CT angiogram of the chest with contrast on 01/31/2017 demonstrating bilateral pulmonary emboli. On the right, filling defects were seen in origins several of lower lobe segment arteries. On the left, some of the straddling the distal main pulmonary artery and extending into the origin of the lower pulmonary artery extending as far as basilar segmental artery origin inferiorly. The pulmonary arteries appeared normal in caliber. There was no evidence of right ventricle dilatation. The heart size was within normal limits. There was evidence of trace pleural effusion and atelectasis and possibly some focal constipation was noted in the posterior costophrenic sulci bilaterally. Trace pericardial effusion was noted. There was evidence of Doppler abnormalities, there was some massive splenomegaly measuring at least 18 cm. The patient was initiated on Lovenox. The patient was evaluated by myself on 02/01/2017 late at night, transferred the patient to be discharged home and had extensive discussion with the patient regarding need for full anticoagulation for at least a period of 6 months. The patient has full coagulation workup, underlying malignancy needs to be ruled out including any type of lymphoproliferative disorder in lieu of the patient's massive splenomegaly. The patient outpatient workup for this. Therefore this patient has been arranged to come into the office next Saturday for further evaluation. PAST MEDICAL HISTORY: History of DVT, history of pulmonary embolus in 2004, history of obesity, history of hydradenitis, multiple skin infections, history of diabetes, and history of asthma. PAST SURGICAL HISTORY: C-sections 2004, history of bilateral hydradenitis in 2004, history of extensive hydradenitis surgically during this hospitalization. FAMILY HISTORY: No cancers in family. No pulmonary emboli . Aunt with significant diabetes. SOCIAL HISTORY: No tobacco, alcohol, or drugs. The patient is , has an 11-year-old daughter. She did have a stillbirth. MEDICATIONS: . ALLERGIES: . REVIEW OF SYSTEMS: General: The patient does complain of . Pulmonary: The patient does have . Cardiac: The patient has no chest pain, orthopnea, or PND. Gastrointestinal: The patient does complain of abdominal pain. Neurologic: The patient has no focal weakness or numbness. Skin: The patient has significant hydradenitis. PHYSICAL EXAMINATION: GENERAL: The patient is a relatively well-developed female in no acute distress. VITAL SIGNS: Temperature 97.9, pulse 90, breathing at 20 , and blood pressure 140/80. HEAD AND NECK: Sclerae are anicteric. CHEST: Clear to auscultation. CARDIAC: Regular rhythm. S1 and S2. ABDOMEN: Soft. Postsurgical distension is noted. EXTREMITIES: Extensive surgical changes of the lower extremities in the thigh region. 2+ in bilateral extremities on the right than the left. NEUROLOGIC: Nonfocal. LABORATORY AND DIAGNOSTIC DATA: Laboratory as well as investigational studies demonstrate a white count of 6.2 and hemoglobin of 8.1. The patient is transfused with packed red blood cells transfusion. Platelet count of 310,000. The patient is noted to have mild . The patient's creatinine of 0.7. ASSESSMENT AND PLAN: 1. History of procedure in 2004 workup, this will be done as outpatient basis. The patient at this time is to undergo full anticoagulation. . The patient regarding post surgically, the patient is aware. needed to examine the significant splenomegaly. The patient of the abdomen is to be ruled out, underlying malignancy needs to be ruled out. Myeloproliferative disease needs to be ruled out. Outpatient PET scan and quite severe. Based on the anemia workup, . 2. Prophylactic antibiotics . STATUS: Full code. Fortino Ceballos M.D. DR: EVERTON JOB#: [id number] CC:
[2017-02-04 13:49] VITALS: BP 116/72
--- NOTE | 2017-02-04 13:49 | 48 Hour Post Anesthesia Eval ---
Post Anesthesia Evaluation Procedure: Dressing change under anesthesia Date of Evaluation: Feb 01, 2017 Time of Evaluation: 17:50 Blood Pressure Systolic: 116 0: 72 Pulse Rate: 64 Respiratory Rate: 20 Temperature (Fahrenheit): 97.6 O2 Sat by Pulse Oximetry: 98 Airway: patent Nausea: No Vomiting: No Pain Intensity: 2 Hydration Status: adequate Cardiopulmonary Status: stable Mental Status/LOC: patient returned to baseline Follow-up Care/Observations: n/a Post-Anesthesia Complications: none Follow-up care needed: N/A BRANDI COVARRUBIAS M.D. Feb 04, 2017 13:49
--- NOTE | 2017-02-04 22:38 | Cardiology Report ---
APPROVED REPORT EKG Measurement Heart [id number] Normal sinus rhythm Nonspecific T wave abnormality Abnormal ECG
--- NOTE | 2017-02-08 08:29 | Diagnostic Imaging Report ---
APPROVED REPORT CPT Code: 26119 Present Symptoms Lower Extremity Edema: Pulmonary Embolism Shortness of breath Comments: Recent surgery for hidradenitis. Past History DVT :Left RIGHT LEG: Venous imaging reveals acute thrombus in the calf vein (proximal anterior tibial). Imaging also reveals patency of the common femoral, proximal superficial and distal popliteal veins. The posterior tibial and peroneal veins are also patent. The mid to distal superficial femoral vein was not seen due to bandages. The greater saphenous vein is within normal limits. LEFT LEG: Venous imaging reveals a patent deep venous system. There is no evidence of thrombus within the femoral, popliteal or tibial segments. The greater saphenous vein is also within normal limits. Doppler indicates normal spontaneous flow within these segments. Incidental finding: Enlarged lymph node noted at the superficial femoral vein level, measuring (3.1 cm x 1.0 cm x 2.1 cm). ZACH Nogueira and Ladonna notified of abnormal results at 18:37 hrs.
== END 2017-02-02 13:19 | disposition home or self-care (01) | DRG 573 ==
LOC: EMR 13:49 → 3E 14:00 → EDBEDREQ 14:05
PROC: 0JB80ZZ Excision of Abdomen Subcutaneous Tissue and Fascia, Open Approach (ICD-10-PCS; principal; 2017-01-23 13:30)
PROC: 0H8HXZZ Division of Right Upper Leg Skin, External Approach (ICD-10-PCS; principal; 2017-01-23 13:30)
PROC: 0H8JXZZ Division of Left Upper Leg Skin, External Approach (ICD-10-PCS; principal; 2017-01-23 13:30)
PROC: 0H8HXZZ Division of Right Upper Leg Skin, External Approach (ICD-10-PCS; 2017-01-25)
PROC: 0JBL0ZZ Excision of Right Upper Leg Subcutaneous Tissue and Fascia, Open Approach (ICD-10-PCS; 2017-01-25)
PROC: 0H88XZZ Division of Buttock Skin, External Approach (ICD-10-PCS; 2017-01-25)
PROC: 30233N1 Transfusion of Nonautologous Red Blood Cells into Peripheral Vein, Percutaneous Approach (ICD-10-PCS; 2017-01-26)
PROC: 0JXL0ZZ Transfer Right Upper Leg Subcutaneous Tissue and Fascia, Open Approach (ICD-10-PCS; 2017-01-28)
PROC: 0JX90ZZ Transfer Buttock Subcutaneous Tissue and Fascia, Open Approach (ICD-10-PCS; 2017-01-28)
DX: L02.214 Cutaneous abscess of groin (principal); I26.99 Other pulmonary embolism without acute cor pulmonale; I82.431 Acute embolism and thrombosis of right popliteal vein; E11.9 Type 2 diabetes mellitus without complications; L02.31 Cutaneous abscess of buttock; B37.49 Other urogenital candidiasis; D64.9 Anemia, unspecified; L73.2 Hidradenitis suppurativa; J45.909 Unspecified asthma, uncomplicated; T38.0X5A Adverse effect of glucocorticoids and synthetic analogues, initial encounter; R73.9 Hyperglycemia, unspecified; Z86.711 Personal history of pulmonary embolism; R09.02 Hypoxemia; Z86.718 Personal history of other venous thrombosis and embolism
CPT/HCPCS: 36415; 36569; 36600; 71010; 71275; 76937; 80048; 80053; 80202; 81001; 81003; 82803; 82962; 83036; 83735; 84703; 85007; 85025; 85610; 85730; 86850; 86900; 86901; 86920; 87040; 87086; 93005; 93970; 94003; 94150; 94664; 94760; J1815; J2250; J2405; J2710; J8499; S5561